=== PATIENT | male | born 1955 | race Caucasian/White ===

== ENCOUNTER 2019-07-23 02:09 | Emergency (ER) | payer OTHER ==
[2019-07-23 02:47] LABS: #Basophils 0.1 thou/uL (0.0-0.2); #Eosinphils 0.2 thou/uL (0.0-0.7); #Lymphocytes 1.4 thou/uL (1.20-3.40); #Monocytes 0.8 thou/uL (0.11-0.59); #Neutrophils 5.7 thou/uL (1.40-6.50); %Basophils 0.8 % (0.0-1.0); %Eosinophils 2.4 % (0.0-10.0); %Lymphocytes 16.8 % (21.0-51.0); %Monocytes 9.3 % (0.0-10.0); %Neutrophils 70.6 % (42.0-75.0); Hemoglobin 14.2 g/dL (14.0-18.0); Mean Corpuscular HGB CONC 32.6 g/dL (32.0-36.0); Mean Corpuscular Hemoglobin 28.9 pg (27.0-31.0); Mean Corpuscular Volume 88.6 fL (78.0-98.0); Mean Platelet Volume 8.6 fL (7.4-10.4); Platelet Count 259 thou/uL (130-400); RBC Distribution Width 12.9 % (11.5-14.5); Red Blood Cell (RBC) Count 4.92 mill/uL (4.70-6.10); White Blood Cell (WBC) Count 8.1 thou/uL (4.8-10.8)
[2019-07-23 03:13] LABS: ALT (SGPT) 19 U/L (8-55); AST (SGOT) 19 U/L (5-34); Alkaline Phosphatase 69 U/L (40-110); Anion Gap 12 mmol/L (10-20); BUN (Urea Nitrogen) 16 mg/dL (8.4-25.7); Bilirubin, Total 0.7 mg/dL (0.2-1.2); Calc. Creatinine Clearance 0 mL/min (70-130); Calcium 9.2 mg/dL (7.8-10.44); Carbon Dioxide 28 mmol/L (23-31); Chloride 106 mmol/L (98-107); Estimated GFR-MDRD Greater than 90; Globulin 3.3 g/dL (2.4-3.5); Glucose 110 mg/dL (80-115); Lipase 20 U/L (8-78); Potassium 4.6 mmol/L (3.5-5.1); Protein, Total 7.3 g/dL (5.8-8.1); Sodium 141 mmol/L (136-145)
[2019-07-23 04:13] LABS: Bacteria/HPF None Seen HPF (None Seen); Bilirubin Negative (Negative); Blood, Urine Negative (Negative); Clarity Clear (Clear); Glucose, Urine (Dipstick) Normal (Negative); Leukocyte Negative Leu/uL (Negative); Nitrite Negative (Negative); Protein, Urine (Dipstick) 50 mg/dL (Neg-Trace); RBC/HPF 0-3 HPF (0-3); Squamous Epithelial None Seen HPF (0-3); WBC/HPF 0-3 HPF (0-3)
[2019-07-23] MEDS ORDERED: Amoxicillin/Potassium Clav 875 MG TAB ONE (04:13)
[2019-07-23] MEDS ORDERED: Acetaminophen/Codeine 30-300mg Tablet ONE (05:02)
[2019-07-23] MEDS ORDERED: Iopamidol-370 76% 500 ML 1 ML ONE (09:56)
--- NOTE | 2019-07-23 10:39 | CT ---
PRELIMINARY REPORT/[facility]/EMERGENCY AFTER HOURS PROCEDURE Receipt of this report by the clinical staff was confirmed with Sarahi Nino RN by Marcela Nuñez on Jul 23, 2019 04:05:00 CATALYST SUPERVISOR. Addendum electronically signed by Marcela Nuñez on July 23, 2019 4:06:03 AM CATALYST SUPERVISOR EXAM: CT Abdomen and Pelvis with Intravenous Contrast CLINICAL HISTORY: 63 yo M presenting with 3-4 episodes of large volume hematochezia in the past 4 carolyn rs. Denies history of similar episodes. No fever/chills. Pt also with LLQ pain. CONTRAST: With; ISOVUE 370,100mL COMPARISON: None provided. FINDINGS: Coronary artery calcifications. LUNG BASES: No basilar airspace consolidation or pleural effusion. Bibasilar linear opacities, likely atelectasis or scarring. LIVER: Unremarkable. GALLBLADDER AND BILE DUCTS: Unremarkable. No calcified stone. No ductal dilation. PANCREAS: Unremarkable. SPLEEN: Unremarkable. ADRENAL GLANDS: Multiple incompletely characterized right adrenal nodules.. KIDNEYS, URETERS, AND BLADDER: 2.2 cm left lower pole renal cyst. No hydronephrosis or nephrolithiasi s. Nonobstructing 4 mm left lower pole renal stone. STOMACH AND BOWEL: No obstruction. No wall thickening. Sigmoid diverticulosis with mild adjacent stra nding (image 76, series 2 and image 125, series 301). Hyperdense material is seen in the distal sigm oid colon and rectum. APPENDIX: No CT evidence for appendicitis. PERITONEUM: No free fluid. No free air. LYMPH NODES: No lymphadenopathy. REPRODUCTIVE: Unremarkable as visualized. VASCULATURE: No aortic aneurysm. BONES: No fracture or suspicious osseous abnormality. Multilevel degenerative changes of the lumbar s pine. ABDOMINAL WALL AND SOFT TISSUES: Left greater than right fat containing inguinal hernias.. IMPRESSION: Sigmoid diverticulosis with mild adjacent stranding. Findings concerning for early acute diverticulitis. Hyperattenuating material is seen in the distal sigmoid colon and rectum, compatible with history of hematochezia. ELECTRONICALLY SIGNED BY: Jordon Garcia MD Jul 23, 2019 4:00:33 AM CATALYST SUPERVISOR FINAL REPORT CT ABDOMEN AND PELVIS PERFORMED WITH CONTRAST ENHANCEMENT: HISTORY: Three to 4 episodes of large-volume hematochezia in the past 4 hours. Pain in the left lower quadran t. FINDINGS: Lung bases show Bibasilar atelectatic lung change. There are diffuse fatty changes of the liver. The spleen is within normal limits of size. Pancreas is unremarkable. A small area of increased attenuation within the gallbladder lumen probably represe nts a small stone. Right and left adrenal glands and right and left kidneys are normal in size. A nonobstructing puncta te lower pole left renal calculus is noted and a lower pole left renal cyst is present measuring 2.4 cm. There is no significant periaortic or mesenteric adenopathy. Colonic diverticulosis is noted mo re pronounced in the sigmoid region. There is some subtle fat stranding adjacent to the sigmoid colo n. There is no evidence of any pelvic lymphadenopathy or mass. The appendix is normal. Prostate ca lcifications are present. Arthritic changes of the spine are noted. IMPRESSION: 1. Probable tiny gallstone. Ultrasound would be suggested if clinically indicated. 2. Punctate nonobstructing lower pole left renal calculus. 3. Colonic diverticulosis more severe in the sigmoid region with some very minimal fat stranding adj acent to the sigmoid colon. I cannot exclude this representing some early acute diverticulitis. 4. This report is in agreement with the temporary report issued by [facility]. POS: [facility]
== END 2019-07-23 05:11 ==
LOC: ERS 02:09
DX: K57.33 Diverticulitis of large intestine without perforation or abscess with bleeding (principal); I10 Essential (primary) hypertension; J44.9 Chronic obstructive pulmonary disease, unspecified; Z87.891 Personal history of nicotine dependence; Z79.899 Other long term (current) drug therapy
CPT/HCPCS: 36415; 74177; 80053; 81003; 81015; 83605; 83690; 85025; 86850; 86900; 86901

== ENCOUNTER 2019-07-23 17:16 | Inpatient (IN) | payer OTHER ==
--- NOTE | 2019-07-23 17:45 | RAD ---
XR Chest 1 View Portable HISTORY: Abdominal pain. Dizziness COMPARISON: 04/04/2019 FINDINGS: The heart is enlarged. There is continued elevation the right hemidiaphragm. No lobar conso lidation, pneumothoraces, santos pulmonary edema or large effusions are seen. IMPRESSION: No radiographic evidence of acute cardiopulmonary process.
[2019-07-23 18:04] LABS: #Basophils 0.1 thou/uL (0.0-0.2); #Eosinphils 0.1 thou/uL (0.0-0.7); #Lymphocytes 0.9 thou/uL (1.20-3.40); #Monocytes 0.6 thou/uL (0.11-0.59); #Neutrophils 6.1 thou/uL (1.40-6.50); %Basophils 1.2 % (0.0-1.0); %Eosinophils 0.8 % (0.0-10.0); %Lymphocytes 11.8 % (21.0-51.0); %Monocytes 7.6 % (0.0-10.0); %Neutrophils 78.7 % (42.0-75.0); Mean Corpuscular HGB CONC 32.8 g/dL (32.0-36.0); Mean Corpuscular Hemoglobin 29.1 pg (27.0-31.0); Mean Corpuscular Volume 88.8 fL (78.0-98.0); Mean Platelet Volume 8.7 fL (7.4-10.4); Platelet Count 238 thou/uL (130-400); RBC Distribution Width 12.8 % (11.5-14.5); Red Blood Cell (RBC) Count 3.78 mill/uL (4.70-6.10); White Blood Cell (WBC) Count 7.7 thou/uL (4.8-10.8)
[2019-07-23 18:09] LABS: PTT 25.2 SEC (22.9-36.1)
[2019-07-23 18:13] LABS: Prothrombin Time 13.3 SEC (12.0-14.7)
[2019-07-23 18:24] LABS: ALT (SGPT) 15 U/L (8-55); AST (SGOT) 15 U/L (5-34); Albumin 3.3 g/dL (3.4-4.8); Alkaline Phosphatase 51 U/L (40-110); Anion Gap 10 mmol/L (10-20); BUN (Urea Nitrogen) 20 mg/dL (8.4-25.7); Bilirubin, Total 1.1 mg/dL (0.2-1.2); Calc. Creatinine Clearance 0 mL/min (70-130); Calcium 8.2 mg/dL (7.8-10.44); Carbon Dioxide 26 mmol/L (23-31); Chloride 108 mmol/L (98-107); Estimated GFR-MDRD 64; Globulin 2.6 g/dL (2.4-3.5); Glucose 131 mg/dL (80-115); Iron 110 ug/dL (65-175); Iron Binding Capacity, Total 288 mcg/dL (261-462); Potassium 4.2 mmol/L (3.5-5.1); Protein, Total 5.9 g/dL (5.8-8.1); Sodium 140 mmol/L (136-145)
[2019-07-23 18:44] LABS: CKMB 1.4 ng/mL (0-6.6)
[2019-07-23] MEDS ORDERED: Fentanyl 100 MCG/2 ML VIAL ONE (19:11)
[2019-07-23] MEDS ORDERED: metroNIDAZOLE 500 MG/100 ML BAG ONE (20:07)
[2019-07-23] MEDS ORDERED: Pantoprazole 40 MG VIAL ONE (20:07)
[2019-07-23] MEDS ORDERED: Acetaminophen 650 MG Suppository PR PRN (21:19)
[2019-07-23 21:36] VITALS: BMI 40.4
[2019-07-23] MEDS ORDERED: Ondansetron ODT 4 MG TAB SL PRN (21:38)
[2019-07-23] MEDS ORDERED: Ondansetron PF 4 MG/2 ML Vial IVP PRN (21:38)
[2019-07-23 21:49] LABS: Hemoglobin 10.6 g/dL (14.0-18.0)
[2019-07-23 21:57] LABS: PTT 26.6 SEC (22.9-36.1); Prothrombin Time 13.4 SEC (12.0-14.7)
[2019-07-23] MEDS: Sodium Chloride 0.9% 1,000 ML IV SCH (22:09)
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
[2019-07-23] MEDS ORDERED: GoLYTELY 4,000 ml Bottle PO SCH (22:30)
[2019-07-24] MEDS: Acetaminophen 325 MG TAB PO PRN ×2 (00:25→17:24)
[2019-07-24] MEDS: metroNIDAZOLE 500 MG in Premix Bag 1 BAG IVPB SCH ×3 (02:24→17:15)
[2019-07-24 03:55] LABS: #Basophils 0.1 thou/uL (0.0-0.2); #Eosinphils 0.2 thou/uL (0.0-0.7); #Monocytes 0.8 thou/uL (0.11-0.59); #Neutrophils 5.2 thou/uL (1.40-6.50); %Basophils 1.3 % (0.0-1.0); %Eosinophils 2.3 % (0.0-10.0); %Lymphocytes 23.9 % (21.0-51.0); %Monocytes 9.7 % (0.0-10.0); %Neutrophils 62.8 % (42.0-75.0); Hemoglobin 10.5 g/dL (14.0-18.0); Mean Corpuscular HGB CONC 32.7 g/dL (32.0-36.0); Mean Corpuscular Hemoglobin 29.4 pg (27.0-31.0); Mean Corpuscular Volume 89.9 fL (78.0-98.0); Mean Platelet Volume 9.1 fL (7.4-10.4); Platelet Count 223 thou/uL (130-400); RBC Distribution Width 12.8 % (11.5-14.5); Red Blood Cell (RBC) Count 3.58 mill/uL (4.70-6.10); White Blood Cell (WBC) Count 8.3 thou/uL (4.8-10.8)
[2019-07-24 04:21] LABS: ALT (SGPT) 15 U/L (8-55); AST (SGOT) 15 U/L (5-34); Albumin 3.4 g/dL (3.4-4.8); Alkaline Phosphatase 49 U/L (40-110); Anion Gap 13 mmol/L (10-20); BUN (Urea Nitrogen) 20 mg/dL (8.4-25.7); Calc. Creatinine Clearance 159 mL/min (70-130); Calcium 8.2 mg/dL (7.8-10.44); Carbon Dioxide 24 mmol/L (23-31); Chloride 109 mmol/L (98-107); Estimated GFR-MDRD 84; Globulin 2.5 g/dL (2.4-3.5); Glucose 96 mg/dL (80-115); Potassium 3.9 mmol/L (3.5-5.1); Protein, Total 5.9 g/dL (5.8-8.1); Sodium 142 mmol/L (136-145)
[2019-07-24 04:43] LABS: CKMB 1.8 ng/mL (0-6.6)
[2019-07-24] MEDS: Sodium Chloride 0.9% 1,000 ML IV SCH ×2 (05:24→13:16)
[2019-07-24] MEDS ORDERED: Prevnar 13-Val Conj/PF 0.5 ML SYRINGE IM ONE (09:00)
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
[2019-07-24] MEDS: Pantoprazole 40 MG VIAL IVP SCH ×2 (10:17→20:17)
[2019-07-24 11:31] LABS: CKMB 2.1 ng/mL (0-6.6)
[2019-07-24] MEDS ORDERED: PROPOFOL 200 MG/20 ML VIAL ONE (11:54)
--- NOTE | 2019-07-24 12:43 | PDOC.HOSPP ---
- Subjective Encounter Date: 07/24/19 Encounter Time: 12:40 Subjective: abd pain is better had colonoscopy this am no nausea, is tolerating oral diet - Objective Vital Signs & Weight: Vital Signs (12 hours) Temp Pulse Ox 07/24/19 11:22 98.5 F 07/24/19 08:00 97 07/24/19 07:14 98.4 F 07/24/19 03:31 98.1 F Weight Weight 306 lb Most Recent Monitor Data Heart Rate from ECG 69 NIBP 159/97 NIBP BP-Mean 117 Respiration from ECG 23 SpO2 97 I&O: 07/23/19 07/24/19 07/25/19 06:59 06:59 06:59 Intake Total 4236 Output Total 700 Balance 3536 Result Diagrams: 07/24/19 10:40 07/24/19 03:10 Hospitalist ROS - Medication Medications: Active Medications Generic Name Dose Route Start Last Admin Trade Name Freq PRN Reason Stop Dose Admin Acetaminophen 650 mg 07/23/19 21:19 07/24/19 00:25 Tylenol PO 650 mg Q4H PRN Administration Headache/Fever/Mild Pain (1-3) Sodium Chloride 1,000 mls @ 100 mls/hr 07/23/19 21:38 07/24/19 05:24 Normal Saline 0.9% IV 07/25/19 03:37 1,000 mls .Q10H MEENA Administration Ciprofloxacin/Dextrose 400 mg/ 200 mls @ 200 mls/hr 07/24/19 09:00 07/24/19 10:17 Device IVPB 200 mls Q12HR MEENA Administration Metronidazole 500 mg/ Device 100 mls @ 100 mls/hr 07/24/19 02:00 07/24/19 10: 18 IVPB 100 mls 0200,1000,1800 MEENA Administration Pantoprazole Sodium 40 mg 07/24/19 09:00 07/24/19 10:17 Protonix IVP 40 mg BID MEENA Administration - Exam General Appearance: awake alert Eye: PERRL, anicteric sclera ENT: no oropharyngeal lesions, moist mucosa Neck: supple, no JVD Heart: RRR, no murmur Respiratory: no wheezes, no rales Gastrointestinal: soft, non-tender, normal bowel sounds, no guarding, no rigidity Extremities: no cyanosis, 1+ LE edema Neurological: cranial nerve grossly intact, no focal deficits Psychiatric: normal affect, A&O x 3 Hosp A/P (1) GI bleed Code(s): K92.2 - GASTROINTESTINAL HEMORRHAGE, UNSPECIFIED Status: Acute Qualifiers: GI bleed type/associated pathology: diverticulitis Qualified Code(s): K57.93 - Diverticulitis of intestine, part unspecified, without perforation or abscess with bleeding (2) Acute blood loss anemia Code(s): D62 - ACUTE POSTHEMORRHAGIC ANEMIA Status: Acute (3) Hepatitis C Code(s): B19.20 - UNSPECIFIED VIRAL HEPATITIS C WITHOUT HEPATIC COMA Status: Chronic Qualifiers: Viral hepatitis chronicity: chronic Hepatic coma status: without hepatic coma Qualified Code(s): B18.2 - Chronic viral hepatitis C (4) COPD (chronic obstructive pulmonary disease) Status: Chronic Qualifiers: COPD type: chronic bronchitis (5) Obesity Code(s): E66.9 - OBESITY, UNSPECIFIED Status: Chronic Qualifiers: Obesity classification: adult class 3 (BMI >= 40) Body mass index: BMI 40.0 -44.9 (6) HTN (hypertension) Code(s): I10 - ESSENTIAL (PRIMARY) HYPERTENSION Status: Chronic Qualifiers: Hypertension type: essential hypertension Qualified Code(s): I10 - Essential (primary) hypertension - Plan is on cipro, flagyl, protonix and clear liq diet s/p colonoscopy with polypectomy continue inhaler, iv fluids, imdur, hold antihtn meds and diuretics for today to ambulate as tolerated h/h in am
[2019-07-24] MEDS ORDERED: PROVENTIL INHALER 6.7 G (200 INHALATIONS) INH PRN (13:00)
--- NOTE | 2019-07-24 13:19 | OP ---
DATE OF PROCEDURE: 07/24/2019 PROCEDURE PERFORMED: Colonoscopy with biopsy/polypectomy and control of hemorrhage. INDICATION FOR PROCEDURE: Hematochezia. DESCRIPTION OF PROCEDURE: After the risks and benefits of the procedure were explained to the patient including risks of bleeding, infection, perforation, reactions to anesthesia, aspiration, and/or pain, informed consent was obtained. The patient was then taken to the endoscopy suite, where deep sedation was administered via propofol and anesthesia support after being placed in the left lateral decubitus position. Once adequate sedation was achieved, a digital rectal examination was performed followed by introduction of the standard colonoscope, which was then advanced to the proximal ascending colon with increased difficulty due to the patient's body habitus, tortuous colon, and significant diverticular disease. The quality of the prep was fair despite aggressive irrigation and suctioning, making it inadequate for the evaluation of small mucosal lesions, but adequate for the purposes of identifying bleeding. The patient tolerated the procedure well with no immediate perioperative complications. Upon conclusion of the procedure, all equipment was removed from the patient and he was transferred to PACU in satisfactory condition. FINDINGS: Digital rectal exam: Normal findings were seen on external examination. Colon findings: A moderate amount of retained semi-solid and liquid stool was seen throughout the entire colon, limiting visualization of the colonic mucosa. Aggressive irrigation and suctioning was achieved with sterile water, but still unable to achieve adequate visualization in the ascending, transverse, and proximal descending colons. Of the mucosa seen, a 3 mm polyp was seen in the ascending colon and completely removed with Jumbo biopsy forceps. It was retrieved and placed in a specimen jar for further evaluation. Given the patient's body habitus, tortuous colon, and significant diverticular disease in the sigmoid colon, I was unable to achieve cecal intubation, but with visualization of the ileocecal valve and appendiceal orifice from approximately 10 cm away. Normal-appearing mucosa was then seen in the transverse colon. Scattered diverticula were seen in the proximal descending colon and increasing a concentration into the descending colon and including the sigmoid colon at the junction between the distal descending and sigmoid colons. There was a large diverticulum that has mildly surrounding erythema as well as a visible vessel along the lip of the diverticulum itself. Hemoclip x3 was employed to clip the vessel in addition to closing the diverticulum shot. There was no bleeding noted at the end of the maneuver. Normal-appearing mucosa was then seen within the rectum with small internal hemorrhoids seen on rectal retroflexion. IMPRESSION: 1. A 3 mm ascending colon polyp status post biopsy forceps. 2. Four 4 to 6 mm descending colon polyps, not intervened upon due to increased risk of bleeding. 3. Severe left-sided diverticulosis. 4. A diverticulum at the distal descending/sigmoid colon junction with a visible vessel and surrounding erythema, most likely consistent with diverticular bleed, status post hemoclip placement x3. 5. Small internal hemorrhoids. RECOMMENDATIONS: 1. Would continue to trend his hemoglobin and hematocrit and transfuse as necessary to maintain the hemoglobin and hematocrit of 7/21. 2. Continue to monitor clinically for signs of active GI bleeding. 3. Would place the patient on a clear liquid diet in case further procedures are planned. 4. Would ultimately recommend a higher fiber diet as an outpatient given the degree of diverticulosis. 5. No overt evidence of diverticulitis was seen during examination today, although continuation of antibiotics for possible diverticulitis contributing to his left lower quadrant abdominal pain is reasonable for a total duration of therapy of 10 days. We will continue to follow. Please call with any questions. Job ID: [id number]
[2019-07-24] MEDS: Ipratropium Oral Inhaler INH SCH ×2 (14:29→19:31)
[2019-07-24 16:26] LABS: Hemoglobin 9.5 g/dL (14.0-18.0)
[2019-07-24] MEDS: Mometasone 100 MCG HFA INHALER INH SCH (19:31)
[2019-07-24] MEDS ORDERED: Morphine 2 MG/ML SYRINGE SLOW IVP SCH (20:00)
[2019-07-25] MEDS: metroNIDAZOLE 500 MG in Premix Bag 1 BAG IVPB SCH ×3 (01:42→18:55)
[2019-07-25 04:12] LABS: Anion Gap 9 mmol/L (10-20); BUN (Urea Nitrogen) 10 mg/dL (8.4-25.7); Calc. Creatinine Clearance 204 mL/min (70-130); Calcium 8.3 mg/dL (7.8-10.44); Carbon Dioxide 25 mmol/L (23-31); Chloride 110 mmol/L (98-107); Estimated GFR-MDRD Greater than 90; Glucose 121 mg/dL (80-115); Potassium 3.5 mmol/L (3.5-5.1); Sodium 140 mmol/L (136-145)
[2019-07-25 06:46] LABS: #Basophils 0.1 thou/uL (0.0-0.2); #Eosinphils 0.4 thou/uL (0.0-0.7); #Lymphocytes 1.5 thou/uL (1.20-3.40); #Monocytes 0.7 thou/uL (0.11-0.59); #Neutrophils 3.8 thou/uL (1.40-6.50); %Basophils 1.2 % (0.0-1.0); %Eosinophils 5.9 % (0.0-10.0); %Lymphocytes 23.3 % (21.0-51.0); %Monocytes 10.4 % (0.0-10.0); %Neutrophils 59.3 % (42.0-75.0); Hemoglobin 9.3 g/dL (14.0-18.0); Mean Corpuscular HGB CONC 33.9 g/dL (32.0-36.0); Mean Corpuscular Hemoglobin 29.9 pg (27.0-31.0); Mean Corpuscular Volume 88.4 fL (78.0-98.0); Mean Platelet Volume 8.8 fL (7.4-10.4); Platelet Count 209 thou/uL (130-400); RBC Distribution Width 12.8 % (11.5-14.5); Red Blood Cell (RBC) Count 3.09 mill/uL (4.70-6.10); White Blood Cell (WBC) Count 6.4 thou/uL (4.8-10.8)
[2019-07-25] MEDS: Ipratropium Oral Inhaler INH SCH (08:33)
[2019-07-25] MEDS: Mometasone 100 MCG HFA INHALER INH SCH (08:34)
[2019-07-25] MEDS: Isosorbide Mononitrate (ER) 30 MG TAB PO SCH (09:05)
[2019-07-25] MEDS: Pantoprazole 40 MG VIAL IVP SCH ×2 (09:06→20:23)
[2019-07-25] MEDS ORDERED: Ipratropium Oral Inhaler INH PRN (09:15)
[2019-07-25] MEDS ORDERED: Mometasone 100 MCG HFA INHALER INH PRN (09:15)
--- NOTE | 2019-07-25 10:22 | PRG ---
DATE OF SERVICE: 07/25/2019 REASON FOR CONSULTATION: Hematochezia, diverticular bleeding. SUBJECTIVE: The patient underwent colonoscopy yesterday with the findings of colon polyps as well as a diverticulum within the sigmoid colon with a visible vessel. This was subsequently intervened upon with hemoclip placement x3 with good hemostasis achieved. Overnight, he did not have any additional problems and did have the passage of some older appearing blood, but no further grossly bloody bowel movements. Today, he states that he is doing well with no other problems or complaints other than chronic lower leg pain and back pain. Currently, he denies any nausea, vomiting, fevers, chills, hematemesis, melena, or hematochezia. He was wondering if he can get his diet advanced. OBJECTIVE: VITAL SIGNS: Temperature 98.6, pulse 73, blood pressure 134/95, respiratory rate 24, saturating 96% on room air. GENERAL: The patient is lying in bed, in no acute distress. Alert and oriented x4. CARDIOVASCULAR: Regular rate and rhythm. RESPIRATORY: Clear to auscultation bilaterally. ABDOMEN: Normoactive bowel sounds. Soft, nondistended. Mild tenderness to palpation in the left lower quadrant. EXTREMITIES: No cyanosis or clubbing. 1+ bilateral lower extremity edema extending up to mid cruz. LABORATORY DATA: CBC with a white blood cell count of 6.4, hemoglobin 9.3, hematocrit 27.4, platelets 209. Chemistry with a sodium of 140, potassium 3.5, chloride 110, CO2 of 25, BUN 10, creatinine 0.71, glucose 121. IMAGING DATA: Colonoscopy was performed on July 24, 2019, which showed 5 colonic polyps (4 were not removed due to risk of bleeding). Severe left-sided diverticulosis with a visible vessel and one diverticulum consistent with a diverticular bleed. This was intervened upon with hemoclip placement x3 with no further episodes of bleeding. ASSESSMENT AND PLAN: The patient is a 63-year-old male with past medical history of morbid obesity, hypertension, chronic hepatitis C infection, hypothyroidism, chronic obstructive pulmonary disease, BPH, atrial fibrillation, coronary artery disease and aortic stenosis with cardiomyopathy with diastolic dysfunction presenting with hematochezia secondary to diverticular bleed. 1. Hematochezia/diverticular bleeding. a. The patient initially presented with a longstanding history of hematochezia characterized as bright red blood per rectum that was present only on the toilet paper and consistent more with hemorrhoidal bleeding; however, the patient had an increase in his hematochezia for the 24 to 36 hours prior to admission with grossly bloody bowel movements expressed at that time and associated hypotension. He subsequently underwent colonoscopy on July 24, 2019, with a few colonic polyp seen, but extensive diverticulosis in the distal descending and sigmoid colon. In addition to one diverticula in particular having a visible vessel along the lip of the diverticulum itself. This was subsequently closed with hemoclip placement x3 with no bleeding noted at the end of the maneuver. Currently, his H and H are stable with no further episodes of overt GI bleeding. 2. RECOMMENDATIONS: a. We would continue to trend his H and H and transfuse as necessary to maintain an H and H of 01/02. b. Continue to monitor clinically for signs of active GI bleeding. c. Would avoid any anticoagulation for at least the next 24 to 48 hours. d. If the patient begins to exhibit increased hematochezia, would then possibly repeat either colonoscopy or flexible sigmoidoscopy. 3. Diverticulitis. a. The patient is also presenting with increased left lower quadrant abdominal pain in association with this hematochezia with imaging consistent with possible early diverticulitis. He does continue to have increased pain in the left lower quadrant, which could be due to an evolving diverticulitis versus the presence of just diverticular disease. So far with the antibiotic administration, he is improving. 4. RECOMMENDATIONS: a. Would continue with broad-spectrum antibiotics to include ciprofloxacin and metronidazole for possible diverticulitis and with total duration of therapy of [address] the patient on a lower fiber diet for the time being with the goal of advancing the patient back to a higher fiber diet in 2 to 3 weeks. We will continue to follow. Please call with any questions. Job ID: [id number]
[2019-07-25] MEDS: Acetaminophen 325 MG TAB PO PRN (21:24)
[2019-07-26] MEDS: metroNIDAZOLE 500 MG in Premix Bag 1 BAG IVPB SCH ×3 (02:20→17:13)
[2019-07-26] MEDS: Pantoprazole 40 MG VIAL IVP SCH (08:53)
[2019-07-26] MEDS: Isosorbide Mononitrate (ER) 30 MG TAB PO SCH (08:53)
[2019-07-26 08:55] LABS: #Basophils 0.1 thou/uL (0.0-0.2); #Eosinphils 0.3 thou/uL (0.0-0.7); #Lymphocytes 1.5 thou/uL (1.20-3.40); #Monocytes 0.6 thou/uL (0.11-0.59); #Neutrophils 4.3 thou/uL (1.40-6.50); %Basophils 1.1 % (0.0-1.0); %Lymphocytes 21.9 % (21.0-51.0); %Monocytes 8.7 % (0.0-10.0); %Neutrophils 63.3 % (42.0-75.0); Hemoglobin 9.1 g/dL (14.0-18.0); Mean Corpuscular HGB CONC 31.8 g/dL (32.0-36.0); Mean Corpuscular Hemoglobin 28.5 pg (27.0-31.0); Mean Corpuscular Volume 89.9 fL (78.0-98.0); Mean Platelet Volume 8.8 fL (7.4-10.4); Platelet Count 238 thou/uL (130-400); Red Blood Cell (RBC) Count 3.17 mill/uL (4.70-6.10); White Blood Cell (WBC) Count 6.8 thou/uL (4.8-10.8)
[2019-07-26] MEDS ORDERED: Lisinopril 10 MG TAB PO SCH (12:45)
[2019-07-26] MEDS: Acetaminophen 325 MG TAB PO PRN (15:32)
--- NOTE | 2019-07-26 16:11 | PDOC.HOSPP ---
- Subjective Encounter Date: 07/26/19 Subjective: The patient did not have any bowel movements today. He denies any new complaints. He asked for his diet to be advanced. - Objective Vital Signs & Weight: Vital Signs (12 hours) Temp Resp BP BP Pulse Ox 07/26/19 14:12 162/99 H 07/26/19 14:03 173/96 H 07/26/19 13:29 164/108 H 07/26/19 13:27 164/108 H 07/26/19 12:00 99.4 F 07/26/19 11:56 155/105 H 07/26/19 08:00 99.2 F 18 174/99 H 95 Weight Weight 306 lb Most Recent Monitor Data Heart Rate from ECG 72 NIBP 125/70 NIBP BP-Mean 88 Respiration from ECG 29 SpO2 94 I&O: 07/25/19 07/26/19 07/27/19 06:59 06:59 06:59 Intake Total 1440 2500 Output Total 600 1725 Balance 840 775 Result Diagrams: 07/26/19 08:29 07/25/19 03:35 Hospitalist ROS - Medication Medications: Active Medications Generic Name Dose Route Start Last Admin Trade Name Freq PRN Reason Stop Dose Admin Acetaminophen 650 mg 07/23/19 21:19 07/26/19 15:32 Tylenol PO 650 mg Q4H PRN Administration Headache/Fever/Mild Pain (1-3) Ciprofloxacin/Dextrose 400 mg/ 200 mls @ 200 mls/hr 07/24/19 09:00 07/26/19 08:54 Device IVPB 200 mls Q12HR MEENA Administration Metronidazole 500 mg/ Device 100 mls @ 100 mls/hr 07/24/19 02:00 07/26/19 08: 53 IVPB 100 mls 0200,1000,1800 MEENA Administration Isosorbide Mononitrate 30 mg 07/25/19 09:00 07/26/19 08:53 Imdur Er PO 30 mg DAILY MEENA Administration Pantoprazole Sodium 40 mg 07/24/19 09:00 07/26/19 08:53 Protonix IVP 40 mg BID MEENA Administration Sodium Chloride 10 ml 07/23/19 21:19 07/24/19 20:17 Flush - Normal Saline IVF 10 ml Q12HR PRN Administration Saline Flush - Exam General Appearance: NAD Eye: PERRL, anicteric sclera ENT: normocephalic atraumatic Neck: supple Heart: RRR Respiratory: CTAB Gastrointestinal: soft Neurological: cranial nerve grossly intact, no focal deficits Psychiatric: normal affect, A&O x 3 Hosp A/P (1) Acute blood loss anemia Code(s): D62 - ACUTE POSTHEMORRHAGIC ANEMIA Status: Acute (2) GI bleed Code(s): K92.2 - GASTROINTESTINAL HEMORRHAGE, UNSPECIFIED Status: Acute Qualifiers: GI bleed type/associated pathology: diverticulitis Qualified Code(s): K57.93 - Diverticulitis of intestine, part unspecified, without perforation or abscess with bleeding (3) COPD (chronic obstructive pulmonary disease) Status: Chronic Qualifiers: COPD type: chronic bronchitis (4) Obesity Code(s): E66.9 - OBESITY, UNSPECIFIED Status: Chronic Qualifiers: Obesity classification: adult class 3 (BMI >= 40) Body mass index: BMI 40.0 -44.9 (5) HTN (hypertension) Code(s): I10 - ESSENTIAL (PRIMARY) HYPERTENSION Status: Chronic Qualifiers: Hypertension type: essential hypertension Qualified Code(s): I10 - Essential (primary) hypertension - Plan No further episodes of bleeding. H&H stable. The patient asked for us to hold the discharge until he has a bowel movement.
[2019-07-26] MEDS ORDERED: Fioricet 325/50/40 mg Tablet PO PRN (17:42)
--- NOTE | 2019-07-26 19:17 | PRG ---
DATE OF SERVICE: 07/26/2019 REASON FOR CONSULTATION: Hematochezia, diverticular bleeding, diverticulitis. SUBJECTIVE: Per nursing staff, the patient had no acute events or problems overnight and did have a small volume bowel movement this morning. However, with talking with the patient today, he states that he has not had a bowel movement today and that he has been unable to pass gas as well. He also adds that the soreness in the left lower quadrant abdominal pain is unchanged, if not may be worsened in addition to increasing headaches and ringing in his ears. However, he denies any additional grossly bloody bowel movements and has not had any bloody bowel movements since shortly after the colonoscopy. Currently, he denies any nausea, vomiting, fevers, chills, hematemesis, melena, or hematochezia. OBJECTIVE: VITAL SIGNS: Temperature 99.4, pulse 72, blood pressure 162/99, respiratory rate 18, saturating 95% on room air. GENERAL: The patient was lying in bed, in no acute distress. Alert and oriented x4. CARDIOVASCULAR: Regular rate and rhythm. RESPIRATORY: Clear to auscultation bilaterally. ABDOMEN: Normoactive bowel sounds. Soft, nondistended. Mild tenderness to palpation in the left lower quadrant. EXTREMITIES: No cyanosis or clubbing. 1+ lower extremity edema of the left leg extending up to mid cruz. 1+/2+ lower extremity edema of the right lower extremity extending up to his knee. LABORATORY DATA: CBC with a white blood cell count of 6.8, hemoglobin 9.1, hematocrit 28.5, platelets 238. Chemistry, not drawn today. IMAGING DATA: The patient underwent colonoscopy on July 24, 2019, with a polyp removed from the ascending colon at that time. Pathology report was positive for a tubular adenoma. ASSESSMENT AND PLAN: The patient is a 63-year-old male with past medical history of morbid obesity, hypertension, chronic hepatitis C infection, hypothyroidism, chronic obstructive pulmonary disease, BPH, atrial fibrillation, coronary artery disease, and aortic stenosis with cardiomyopathy with diastolic dysfunction, presenting with hematochezia secondary to diverticular bleed. Hematochezia/diverticular bleed: The patient initially presented with grossly bloody bowel movements 24 to 36 hours prior to admission. He subsequently underwent a colonoscopy on July 24, 2019, with scattered colonic polyps seen, but extensive diverticulosis in the distal descending and sigmoid colon. Within the sigmoid colon, one diverticulum in particular had a visible vessel on the lip of the diverticulum itself indicative of a probable recent bleed. He subsequently underwent hemoclip placement x3 with no bleeding noted at the end of the maneuver, since the colonoscopy has had minimal amounts of blood per rectum, and his hemoglobin and hematocrit have been stable thus far. Recommendations: 1. Would continue to trend his hemoglobin and hematocrit and transfuse as necessary to maintain hemoglobin and hematocrit of 7/21. 2. Continue to monitor clinically for signs of active GI bleeding. 3. Would avoid any anticoagulation for at least the next 24 hours. 4. If the patient exhibits increased hematochezia, I would then consider repeat flexible sigmoidoscopy for further evaluation. Diverticulitis: The patient is presenting with increased left lower quadrant abdominal pain in association with hematochezia and imaging showing fat stranding in the region concerning for early diverticulitis. Per colonoscopy, he did not have any intraluminal findings consistent with the diagnosis; however, he does continue to have some mild left lower quadrant abdominal pain. Currently, he is doing well with antibiotic administration so far. However, with the stated inability to pass gas and have a bowel movement today, it is concerning for increased swelling within the sigmoid colon associated with diverticulitis. However, he did have a bowel movement this morning per nursing staff, raising the question of possible secondary gain. Recommendations: 1. Would continue with ciprofloxacin and metronidazole for diverticulitis and total duration of therapy of 10 days. 2. Continue the patient on a lower fiber diet for the time being with the goal advancing the patient back to a higher fiber diet in 2 to 3 weeks. If the patient is passing gas and having bowel movements with a stable hemoglobin and hematocrit tomorrow, he could be potentially discharged back to [facility]. We will continue to follow. Please call with any questions. Job ID: [id number]
[2019-07-27] MEDS ORDERED: Fioricet 325/50/40 mg Tablet PO PRN (00:36)
[2019-07-27] MEDS: metroNIDAZOLE 500 MG in Premix Bag 1 BAG IVPB SCH ×2 (00:59→09:41)
--- NOTE | 2019-07-27 08:07 | ULT ---
BILATERAL LOWER EXTREMITY VENOUS ULTRASOUND: COMPARISON: 04/05/2019. HISTORY: Bilateral lower extremity pain and edema. TECHNIQUE: Multiplanar, hart scale, and color Doppler images were obtained in a bilateral lower extremity venous ultrasound. Spectral analysis of the Doppler waveforms was performed. FINDINGS: Bilateral common femoral veins, profunda femoral veins, superficial femoral veins, and popliteal vein s are normal in appearance without visible thrombus. These vessels demonstrate normal compression, f low, and augmentation. The posterior tibial veins and greater saphenous veins are patent. IMPRESSION: No evidence of deep vein thrombosis. POS: [facility]
[2019-07-27] MEDS ORDERED: Clopidogrel Bisulfate 75 MG TAB ONE (08:46)
[2019-07-27] MEDS: Isosorbide Mononitrate (ER) 30 MG TAB PO SCH (09:37)
[2019-07-27] MEDS: Pantoprazole 40 MG VIAL IVP SCH ×2 (09:39→10:48)
[2019-07-27] MEDS ORDERED: metroNIDAZOLE 500 MG TAB PO SCH (10:00)
[2019-07-27] MEDS ORDERED: Lisinopril 10 MG TAB PO SCH (10:00)
[2019-07-27] MEDS ORDERED: Ciprofloxacin 500 MG TAB PO SCH ×2 (11:00→20:00)
--- NOTE | 2019-07-27 13:44 | DIS ---
DATE OF ADMISSION: 07/23/2019 DATE OF DISCHARGE: 07/27/2019 HISTORY OF PRESENT ILLNESS AND HOSPITAL COURSE: This is a 63-year-old male with past medical history of hypertension, hepatitis C, hypothyroidism, COPD, BPH, and morbid obesity, who presented to the hospital with persistent bright red blood per rectum. The patient denied any abdominal pains, fevers, or diarrhea. He was found to be hypotensive initially, but his blood pressure improved with IV hydration in the ER. CT scan of the abdomen and pelvis demonstrated colonic diverticulosis without evidence of acute diverticulitis. The patient was admitted to the hospital and Gastroenterology service was consulted. He was seen by Dr. Deacon Howard and the patient subsequently underwent colonoscopy with biopsy/polypectomy and control of hemorrhage on 07/24/2019. He was placed on empiric ciprofloxacin and Flagyl perioperatively. The patient did not exhibit any signs of sepsis during his hospital stay. His postoperative stay was unremarkable other than hypertension that was controlled by lisinopril. No further episodes of bleeding were noted and his H and H were stable. DISCHARGE DIAGNOSES: 1. Anemia due to acute blood loss. 2. Gastrointestinal bleeding. 3. Chronic obstructive pulmonary disease. 4. Obesity. 5. Hypertension. DISCHARGE MEDICATIONS: 1. Fluticasone 110 mcg inhaled b.i.d. 2. Mometasone 100 mcg one puff inhaled b.i.d. p.r.n. for shortness of breath. 3. Ipratropium 200 puff aerosol 2 puffs inhaled 4 times a day. 4. Imdur extended release 30 mg orally daily. 5. Lisinopril 10 mg orally daily. 6. Flagyl 500 mg t.i.d. for 4 days. 7. Pantoprazole 40 mg orally daily. 8. Ciprofloxacin 500 mg orally twice daily for 4 days. 9. Furosemide 40 mg orally twice daily. 10. Aspirin 81 mg orally daily. 11. Acetaminophen 650 mg orally t.i.d. 12. Spironolactone 25 mg orally daily. DISCHARGE INSTRUCTIONS: Increase fiber diet, activity as tolerated, follow up with PCP and GI within 1 to 2 weeks. Job ID: [id number]
[2019-07-27 15:41] VITALS: TEMP 99.4
[2019-07-27 18:27] VITALS: BP 150/99
== END 2019-07-27 15:45 | DRG 378 ==
LOC: ERS 17:16 → IMCU/EMU 21:25
PROVIDERS: ADMIT Internal Medicine; ATTEND Internal Medicine
PROC: 0W3P8ZZ Control Bleeding in Gastrointestinal Tract, Via Natural or Artificial Opening Endoscopic (ICD-10-PCS; principal; 2019-07-24)
PROC: 0DBK8ZZ Excision of Ascending Colon, Via Natural or Artificial Opening Endoscopic (ICD-10-PCS; 2019-07-24)
PROC: 0DBM8ZZ Excision of Descending Colon, Via Natural or Artificial Opening Endoscopic (ICD-10-PCS; 2019-07-24)
DX: K57.33 Diverticulitis of large intestine without perforation or abscess with bleeding (principal); D62 Acute posthemorrhagic anemia; Z68.41 Body mass index [BMI] 40.0-44.9, adult; J44.9 Chronic obstructive pulmonary disease, unspecified; I10 Essential (primary) hypertension; E66.01 Morbid (severe) obesity due to excess calories; B18.2 Chronic viral hepatitis C; E03.9 Hypothyroidism, unspecified; N40.0 Benign prostatic hyperplasia without lower urinary tract symptoms; I25.10 Atherosclerotic heart disease of native coronary artery without angina pectoris; I48.91 Unspecified atrial fibrillation; Z96.653 Presence of artificial knee joint, bilateral; K64.8 Other hemorrhoids; K63.5 Polyp of colon; Z87.891 Personal history of nicotine dependence; Z79.899 Other long term (current) drug therapy; Z79.82 Long term (current) use of aspirin; Z79.51 Long term (current) use of inhaled steroids
CPT/HCPCS: 36415; 71045; 74177; 80048; 80053; 81003; 81015; 82553; 82728; 83540; 83550; 83605; 83690; 83880; 84484; 85025; 85610; 85730; 86850; 86900; 86901; 88305; 93005; 93970; 96361; 96365; 96368; 96375; C9113; J0744; J2270; J2704; J3010; Q9967

== ENCOUNTER 2020-01-24 00:18 | Inpatient (IN) | payer OTHER ==
[2020-01-24] MEDS ORDERED: Sodium Chloride 0.9% (PF) 10 ML VIAL FS PRN (03:34)
--- NOTE | 2020-01-24 03:45 | PDOC.EVN ---
Event Note - Event Note Event Note: [id number] HP dictated
[2020-01-24 03:58] LABS: #Basophils 0.1 thou/uL (0.0-0.2); #Eosinphils 0.1 thou/uL (0.0-0.7); #Lymphocytes 1.2 thou/uL (1.20-3.40); #Neutrophils 5.8 thou/uL (1.40-6.50); %Basophils 0.6 % (0.0-1.0); %Eosinophils 1.7 % (0.0-10.0); %Lymphocytes 14.8 % (21.0-51.0); %Monocytes 12.6 % (0.0-10.0); %Neutrophils 70.2 % (42.0-75.0); Hemoglobin 10.5 g/dL (14.0-18.0); Mean Corpuscular HGB CONC 30.6 g/dL (32.0-36.0); Mean Corpuscular Hemoglobin 23.9 pg (27.0-31.0); Mean Corpuscular Volume 78.2 fL (78.0-98.0); Platelet Count 377 thou/uL (130-400); RBC Distribution Width 19.5 % (11.5-14.5); Red Blood Cell (RBC) Count 4.39 mill/uL (4.70-6.10); White Blood Cell (WBC) Count 8.2 thou/uL (4.8-10.8)
[2020-01-24] MEDS: HYDROcodone/Acetaminophen 5/325 mg Tablet PO PRN ×3 (04:09→23:31)
[2020-01-24 04:18] LABS: ALT (SGPT) 20 U/L (8-55); AST (SGOT) 17 U/L (5-34); Albumin 4.1 g/dL (3.4-4.8); Alkaline Phosphatase 81 U/L (40-110); Anion Gap 10 mmol/L (10-20); BUN (Urea Nitrogen) 17 mg/dL (8.4-25.7); Bilirubin, Total 0.8 mg/dL (0.2-1.2); Calc. Creatinine Clearance 0 mL/min (70-130); Carbon Dioxide 32 mmol/L (23-31); Chloride 103 mmol/L (98-107); Estimated GFR-MDRD Greater than 90; Globulin 3.7 g/dL (2.4-3.5); Glucose 110 mg/dL (80-115); Potassium 3.8 mmol/L (3.5-5.1); Protein, Total 7.8 g/dL (5.8-8.1); Sodium 141 mmol/L (136-145)
[2020-01-24 04:23] LABS: Troponin I 0.062 ng/mL (< 0.028)
[2020-01-24] MEDS ORDERED: cloNIDine 0.2 MG TAB PO PRN (04:38)
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
[2020-01-24] MEDS: Furosemide 40 MG/4 ML VIAL SLOW IVP SCH ×2 (06:28→12:35)
[2020-01-24] MEDS ORDERED: Albuterol 200 PUFF (6.7GM INHALER) INH PRN (07:50)
[2020-01-24] MEDS ORDERED: Metoprolol Tartrate 5 MG/5 ML VIAL IVP PRN (07:53)
[2020-01-24] MEDS: Pantoprazole 40 MG VIAL IVP SCH ×2 (08:32→20:47)
[2020-01-24] MEDS: Spironolactone 25 MG TAB PO SCH (08:33)
[2020-01-24] MEDS: Lisinopril 5 MG TAB PO SCH ×2 (08:33→20:48)
[2020-01-24] MEDS ORDERED: Carvedilol 25 MG TAB PO SCH (10:00)
--- NOTE | 2020-01-24 10:27 | RAD ---
XR Chest 1 View Portable History: Pneumonia Comparison: Radiograph prior day Findings: Similar appearance multifocal airspace opacities. Heart size is enlarged. No pneumothorax. No acute osseous abnormality. Likely layering moderate pleural effusions. Impression: Similar appearance of the chest with airspace opacities and likely layering effusions.
[2020-01-24] MEDS: Ipratropium Oral Inhaler INH SCH ×3 (12:33→20:46)
[2020-01-24] MEDS ORDERED: PROVENTIL INHALER 6.7 G (200 INHALATIONS) INH PRN (13:13)
--- NOTE | 2020-01-24 13:24 | PDOC.HOSPP ---
- Subjective Encounter Date: 01/24/20 Encounter Time: 01:20 Subjective: Seen this morning. He is severely dramatic but with underlying chronic edema and in his lower extremities. He is feeling better after oxygen by nasal cannula. His BNP is almost 700. Creatinine normal range. He is being diuresed today. - Objective Vital Signs & Weight: Vital Signs (12 hours) Temp Pulse Resp BP Pulse Ox 01/24/20 12:33 94 20 99 01/24/20 08:33 90 165/123 H 01/24/20 06:00 98.4 F 01/24/20 04:00 97 01/24/20 03:11 98.1 F Weight Weight 300 lb 12.8 oz Most Recent Monitor Data Heart Rate from ECG 85 NIBP 161/126 NIBP BP-Mean 137 Respiration from ECG 23 SpO2 100 I&O: 01/23/20 01/24/20 01/25/20 06:59 06:59 06:59 Intake Total 270 Output Total 500 925 Balance -230 -925 Result Diagrams: 01/24/20 03:37 01/24/20 03:37 Hospitalist ROS - Medication Medications: Active Medications Generic Name Dose Route Start Last Admin Trade Name Freq PRN Reason Stop Dose Admin Hydrocodone Bitart/Acetaminophen 1 tab 01/24/20 04:01 01/24/20 12:30 [place] 5/325 PO 1 tab Q6H PRN Administration Pain Furosemide 80 mg 01/24/20 06:00 01/24/20 12:35 Lasix SLOW IVP 80 mg 0600,1400 MEENA Administration Ipratropium [place] 2 puff 01/24/20 11:00 01/24/20 12:33 Atrovent Hfa INH 2 puff QID-RT MEENA Administration Lisinopril 10 mg 01/24/20 09:00 01/24/20 08:33 Zestril PO 10 mg BID MEENA Administration Pantoprazole Sodium 40 mg 01/24/20 09:00 01/24/20 08:32 Protonix IVP 40 mg Q12HR MEENA Administration Pantoprazole Sodium 40 mg 01/24/20 09:00 01/24/20 08:32 Protonix PO 40 mg DAILY MEENA Administration Spironolactone 25 mg 01/24/20 08:00 01/24/20 08:33 Aldactone PO 25 mg QAM-WM MEENA Administration - Exam General Appearance: NAD, awake alert General - other findings: Obese Eye: PERRL ENT: normocephalic atraumatic Neck: supple Heart: RRR Respiratory: CTAB, normal chest expansion Gastrointestinal: soft, normal bowel sounds Extremities - other findings: Lower extremities edema at least 2+. Chronic venous stasis pre-existing. Skin - other findings: Right ankle slightly erythematous. Probably pressure related do not see an Neurological: cranial nerve grossly intact, no focal deficits Psychiatric: A&O x 3 Hosp A/P - Plan Acute hypoxic respiratory failure secondary to CHF exacerbation -Improved with oxygenation Acute on chronic CHF exacerbation-probably combined systolic and diastolic we need to wait until echo help us -Elevated BNP around 700 and a normal creatinine and clinical exam suggestive of CHF exacerbation more so -Strict in and output and weights daily discussed with RN. -On IV diuresis. -We will follow-up with cardiology input as well as 2D echo report. History of atrial fibrillation -Is rate controlled with Coreg -I do not see any anticoagulation in his home medication regimen. Will check with echo once no valvular abnormalities may consider adding anticoagulation. Coronary artery disease -On aspirin and Plavix Hypertension Continue with home regimen History of hepatitis C and GI bleed -Stable hemoglobin Morbid obesity Incarcerated.
[2020-01-24 14:41] LABS: CKMB 2.4 ng/mL (0-6.6)
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
--- NOTE | 2020-01-24 17:26 | CON ---
DATE OF CONSULTATION: 01/24/2020 REASON FOR CONSULTATION: Recurrent diastolic congestive heart failure, hypertension. HISTORY OF PRESENT ILLNESS: Mr. Knutson is a 64-year-old man with history of diastolic heart failure. The patient was brought to the hospital with progressive difficulty breathing, was found to have bilateral infiltrates compatible with congestive heart failure. He has received intravenous diuretics with what looks to be only a modest effect. PAST MEDICAL HISTORY: 1. Hypertension. 2. Left ventricular hypertrophy. 3. Normal stress test done previously in [place]. SOCIAL HISTORY: He is a resident of the correctional facility in a nearby town. CURRENT MEDICATIONS: He is on: 1. Carvedilol 25 mg twice a day. 2. Spironolactone 25 mg a day. 3. Lasix 80 mg IV twice a day. 4. Protonix. PHYSICAL EXAMINATION: VITAL SIGNS: The patient's blood pressure is 165/120, pulse is 90. LUNGS: Clear anterolaterally. CARDIAC: Normal S1, normal S2. I do not hear murmur, rub, or gallop. ABDOMEN: Obese and nontender. EXTREMITIES: Moderate to severe peripheral edema. LABORATORY DATA: Troponin 0.062, indeterminate. BNP 689. Chest x-ray is reported as bilateral infiltrates. ASSESSMENT: 1. Recurrent diastolic heart failure. 2. Uncontrolled hypertension. PLAN: 1. Increase nitrates. 2. Continue beta blockers, may need to reduce dose. 3. Repeat chest x-ray. 4. Try to obtain records from [facility]. Apparently, he had a stent placed in his aorta according to what the patient tells me. Job ID: [id number]
[2020-01-24] MEDS: Acetaminophen 325 MG TAB PO PRN (17:28)
[2020-01-24] MEDS: Mometasone 100 MCG/PUFF (1 INHALER) INH SCH (20:46)
[2020-01-24] MEDS: carBAMazepine 200 MG TAB PO SCH (20:47)
[2020-01-24] MEDS: Terazosin HCl 1 MG CAP PO SCH (20:47)
[2020-01-24] MEDS: Carvedilol 25 MG TAB PO SCH (20:48)
[2020-01-24] MEDS: Citrucel 500 MG TAB PO SCH (21:51)
[2020-01-25 05:10] LABS: #Eosinphils 0.3 thou/uL (0.0-0.7); #Monocytes 0.6 thou/uL (0.11-0.59); #Neutrophils 3.9 thou/uL (1.40-6.50); %Basophils 0.8 % (0.0-1.0); %Eosinophils 4.6 % (0.0-10.0); %Lymphocytes 16.8 % (21.0-51.0); %Monocytes 10.2 % (0.0-10.0); %Neutrophils 67.6 % (42.0-75.0); Hemoglobin 9.3 g/dL (14.0-18.0); Mean Corpuscular HGB CONC 29.3 g/dL (32.0-36.0); Mean Corpuscular Hemoglobin 23.4 pg (27.0-31.0); Mean Corpuscular Volume 79.8 fL (78.0-98.0); Mean Platelet Volume 9.8 fL (7.4-10.4); Platelet Count 324 thou/uL (130-400); RBC Distribution Width 19.4 % (11.5-14.5); Red Blood Cell (RBC) Count 3.99 mill/uL (4.70-6.10); White Blood Cell (WBC) Count 5.7 thou/uL (4.8-10.8)
[2020-01-25] MEDS: Furosemide 40 MG/4 ML VIAL SLOW IVP SCH ×2 (06:10→14:29)
[2020-01-25] MEDS: Mometasone 100 MCG/PUFF (1 INHALER) INH SCH ×2 (06:11→18:18)
[2020-01-25] MEDS: Ipratropium Oral Inhaler INH SCH ×4 (06:11→18:15)
[2020-01-25] MEDS: Pantoprazole 40 MG VIAL IVP SCH ×2 (09:14→20:11)
[2020-01-25] MEDS: Lisinopril 5 MG TAB PO SCH ×2 (09:14→20:11)
[2020-01-25] MEDS: Spironolactone 25 MG TAB PO SCH (09:15)
[2020-01-25] MEDS: Aspirin 81 mg Enteric Coated Tablet PO SCH (09:15)
[2020-01-25] MEDS: Clopidogrel Bisulfate 75 MG TAB PO SCH (09:15)
[2020-01-25] MEDS: Carvedilol 25 MG TAB PO SCH ×2 (09:15→20:11)
[2020-01-25] MEDS: DULoxetine 30 MG CAP PO SCH (09:15)
[2020-01-25] MEDS: carBAMazepine 200 MG TAB PO SCH ×2 (09:15→20:11)
--- NOTE | 2020-01-25 09:36 | PRG ---
DATE OF SERVICE: 01/25/2020 SUBJECTIVE: The patient is complaining of sciatic pain and wants morphine. He says his breathing is better. OBJECTIVE: VITAL SIGNS: Temperature 98, pulse 80, respirations 22, O2 saturation 96% on 2 L, and blood pressure 109/75. HEENT: Unremarkable. NECK: No JVD. LUNGS: Clear. CARDIAC: S1 and S2. Regular. ABDOMEN: Soft. EXTREMITIES: No edema. LABORATORY DATA: Troponin 0.41. White blood cell count 5.7, hematocrit 31.8, and platelet count 324. COVID test is not back yet. ASSESSMENT: 1. Diastolic heart failure. 2. Uncontrolled hypertension. PLAN: Isolation can be discontinued once COVID test comes back negative today. No further pulmonary recommendations at this time. Job ID: [id number]
[2020-01-25] MEDS: HYDROcodone/Acetaminophen 5/325 mg Tablet PO PRN ×2 (09:37→20:20)
--- NOTE | 2020-01-25 11:47 | PDOC.HOSPP ---
- Subjective Encounter Date: 01/25/20 Encounter Time: 10:40 Subjective: Ipt is constipated. His urine output is about [address] Castle seen him this morning. I did talk to the RN. COVID result pending. - Objective Vital Signs & Weight: Vital Signs (12 hours) Temp Pulse Resp BP Pulse Ox 01/25/20 09:16 98.1 F 85 18 127/74 96 01/25/20 03:25 98 F 80 22 H 109/75 96 Weight Weight 293 lb Most Recent Monitor Data Heart Rate from ECG 83 NIBP 131/93 NIBP BP-Mean 105 Respiration from ECG 22 SpO2 97 I&O: 01/24/20 01/25/20 01/26/20 06:59 06:59 06:59 Intake Total 270 1900 Output Total 500 3675 Balance -230 -1775 Result Diagrams: 01/25/20 04:36 01/24/20 03:37 Hospitalist ROS - Medication Medications: Active Medications Generic Name Dose Route Start Last Admin Trade Name Freq PRN Reason Stop Dose Admin Acetaminophen 650 mg 01/24/20 13:12 01/24/20 17:28 Tylenol PO 650 mg Q6H PRN Administration Fever > 101 Hydrocodone Bitart/Acetaminophen 1 tab 01/24/20 04:01 01/25/20 09:37 [place] 5/325 PO 1 tab Q6H PRN Administration Pain Aspirin 81 mg 01/25/20 09:00 01/25/20 09:15 Ecotrin PO 81 mg DAILY MEENA Administration Carbamazepine 200 mg 01/24/20 21:00 01/25/20 09:15 Tegretol PO 200 mg BID MEENA Administration Carvedilol 25 mg 01/24/20 21:00 01/25/20 09:15 Coreg PO 25 mg BID MEENA Administration Clopidogrel Bisulfate 75 mg 01/25/20 09:00 01/25/20 09:15 Plavix PO 75 mg QAM MEENA Administration Duloxetine HCl 30 mg 01/25/20 09:00 01/25/20 09:15 Cymbalta PO 30 mg QAM MEENA Administration Furosemide 80 mg 01/24/20 06:00 01/25/20 06:10 Lasix SLOW IVP 80 mg 0600,1400 MEENA Administration Ipratropium [place] 2 puff 01/24/20 11:00 01/25/20 06:11 Atrovent Hfa INH 2 puff QID-RT MEENA Administration Isosorbide Mononitrate 60 mg 01/25/20 09:00 01/25/20 09:15 Imdur Er PO 60 mg DAILY MEENA Administration Lisinopril 10 mg 01/24/20 09:00 01/25/20 09:14 Zestril PO 10 mg BID MEENA Administration Methylcellulose 1,000 mg 01/24/20 21:00 01/24/20 21:51 Citrucel PO 1,000 mg QPM MEENA Administration Mometasone Furoate 100 mcg 01/24/20 18:30 01/25/20 06:11 Asmanex Hfa 100 Mcg INH 2 puff BID-RT MEENA Administration Pantoprazole Sodium 40 mg 01/24/20 09:00 01/25/20 09:14 Protonix IVP 40 mg Q12HR MEENA Administration Pantoprazole Sodium 40 mg 01/24/20 09:00 01/25/20 09:15 Protonix PO 40 mg DAILY MEENA Administration Sodium Chloride 10 ml 01/24/20 03:34 01/25/20 09:14 Normal Saline Pf FS 10 ml PRN PRN Administration RECONSTITUTION Spironolactone 25 mg 01/24/20 08:00 01/25/20 09:15 Aldactone PO 25 mg QAM-WM MEENA Administration Terazosin HCl 2 mg 01/24/20 21:00 01/24/20 20:47 Hytrin PO 2 mg QPM MEENA Administration Hosp A/P - Plan Acute hypoxic respiratory failure secondary to CHF exacerbation -Improved with oxygenation Acute on chronic CHF exacerbation-probably combined systolic and diastolic we need to wait until echo help us -Elevated BNP around 700 and a normal creatinine and clinical exam suggestive of CHF exacerbation more so -Strict in and output and weights daily discussed with RN. -On IV diuresis. -We will follow-up with cardiology input as well as 2D echo report. History of atrial fibrillation -Is rate controlled with Coreg -I do not see any anticoagulation in his home medication regimen. Will check with echo once no valvular abnormalities may consider adding anticoagulation. Coronary artery disease -On aspirin and Plavix Hypertension Continue with home regimen History of hepatitis C and GI bleed -Stable hemoglobin Morbid obesity Incarcerated. 12th COVID result pending NSTEMI elevated troponin probably type II metabolic mismatch demand ischemia secondary to CHF exacerbation Acute on chronic diastolic CHF exacerbation Echo showed EF of 45% with a diastolic dysfunction indeterminate due to atrial fibrillation. -Dilated left atrium. Mild concentric left ventricular hypertrophy. Nitric dose increased Continue with the diuresis. Repeat chest x-ray shows layering moderate pleural effusion very similar to the prior x-ray Constipation On stool softeners.
[2020-01-25 12:04] LABS: SARS-CoV-2 MS2 Positive; SARS-CoV-2 N Gene Negative; SARS-CoV-2 S Gene Negative; SARS-CoV-2 by NAA Not Detected (NotDetected); SARS-CoV-2 orf1ab Negative
[2020-01-25] MEDS: Senokot S 8.6-50 MG TAB PO PRN (12:28)
[2020-01-25 14:55] LABS: Anion Gap 13 mmol/L (10-20); BUN (Urea Nitrogen) 30 mg/dL (8.4-25.7); Calc. Creatinine Clearance 128 mL/min (70-130); Calcium 8.4 mg/dL (7.8-10.44); Carbon Dioxide 34 mmol/L (23-31); Chloride 98 mmol/L (98-107); Estimated GFR-MDRD 69; Glucose 137 mg/dL (80-115); Potassium 3.8 mmol/L (3.5-5.1); Sodium 141 mmol/L (136-145)
[2020-01-25] MEDS: Citrucel 500 MG TAB PO SCH (20:11)
[2020-01-25] MEDS: Terazosin HCl 1 MG CAP PO SCH (20:11)
[2020-01-26 05:08] LABS: Anion Gap 9 mmol/L (10-20); BUN (Urea Nitrogen) 33 mg/dL (8.4-25.7); Calc. Creatinine Clearance 148 mL/min (70-130); Calcium 8.1 mg/dL (7.8-10.44); Carbon Dioxide 36 mmol/L (23-31); Chloride 99 mmol/L (98-107); Estimated GFR-MDRD 82; Glucose 132 mg/dL (80-115); Sodium 140 mmol/L (136-145)
[2020-01-26] MEDS: HYDROcodone/Acetaminophen 5/325 mg Tablet PO PRN ×3 (05:12→21:25)
[2020-01-26] MEDS: Mometasone 100 MCG/PUFF (1 INHALER) INH SCH ×2 (05:19→18:46)
[2020-01-26] MEDS: Furosemide 40 MG/4 ML VIAL SLOW IVP SCH ×2 (05:19→15:15)
[2020-01-26] MEDS: Ipratropium Oral Inhaler INH SCH ×4 (05:20→18:46)
[2020-01-26] MEDS: Spironolactone 25 MG TAB PO SCH (07:49)
[2020-01-26] MEDS: DULoxetine 30 MG CAP PO SCH (07:49)
[2020-01-26] MEDS: Carvedilol 25 MG TAB PO SCH ×2 (07:49→21:06)
[2020-01-26] MEDS: Clopidogrel Bisulfate 75 MG TAB PO SCH (07:49)
[2020-01-26] MEDS: Lisinopril 5 MG TAB PO SCH ×2 (07:50→21:05)
[2020-01-26] MEDS: carBAMazepine 200 MG TAB PO SCH ×2 (07:50→21:08)
[2020-01-26] MEDS: Aspirin 81 mg Enteric Coated Tablet PO SCH (07:50)
[2020-01-26] MEDS: Pantoprazole 40 MG VIAL IVP SCH ×2 (10:40→21:07)
--- NOTE | 2020-01-26 15:27 | PDOC.HOSPP ---
- Subjective Encounter Date: 01/26/20 Encounter Time: 15:00 Subjective: Dickye is sitting in the bed. He feels his legs are getting softer. Guard is nearby. He is afebrile his creatinine is in the normal range. He put out -700 mL. He lost roughly about 5 pounds for 3 days - Objective Vital Signs & Weight: Vital Signs (12 hours) Temp Pulse Resp BP BP Pulse Ox 01/26/20 15:17 98.3 F 77 20 124/75 97 01/26/20 11:49 97.0 F L 82 20 101/68 96 01/26/20 07:51 97 01/26/20 07:43 98.7 F 87 20 124/58 L 97 01/26/20 04:00 98.2 F 96 18 107/66 96 Weight Weight 295 lb Most Recent Monitor Data Heart Rate from ECG 83 NIBP 131/93 NIBP BP-Mean 105 Respiration from ECG 22 SpO2 97 I&O: 01/25/20 01/26/20 01/27/20 06:59 06:59 06:59 Intake Total 1900 1440 Output Total 3675 2320 700 Balance -1775 -880 -700 Result Diagrams: 01/25/20 04:36 01/26/20 04:35 Hospitalist ROS - Medication Medications: Active Medications Generic Name Dose Route Start Last Admin Trade Name Freq PRN Reason Stop Dose Admin Acetaminophen 650 mg 01/24/20 13:12 01/24/20 17:28 Tylenol PO 650 mg Q6H PRN Administration Fever > 101 Hydrocodone Bitart/Acetaminophen 1 tab 01/24/20 04:01 01/26/20 05:12 [place] 5/325 PO 1 tab Q6H PRN Administration Pain Aspirin 81 mg 01/25/20 09:00 01/26/20 07:50 Ecotrin PO 81 mg DAILY MEENA Administration Carbamazepine 200 mg 01/24/20 21:00 01/26/20 07:50 Tegretol PO 200 mg BID MEENA Administration Carvedilol 25 mg 01/24/20 21:00 01/26/20 07:49 Coreg PO 25 mg BID MEENA Administration Clopidogrel Bisulfate 75 mg 01/25/20 09:00 01/26/20 07:49 Plavix PO 75 mg QAM MEENA Administration Duloxetine HCl 30 mg 01/25/20 09:00 01/26/20 07:49 Cymbalta PO 30 mg QAM MEENA Administration Furosemide 80 mg 01/24/20 06:00 01/26/20 15:15 Lasix SLOW IVP 80 mg 0600,1400 MEENA Administration Ipratropium [place] 2 puff 01/24/20 11:00 01/26/20 15:15 Atrovent Hfa INH 2 puff QID-RT MEENA Administration Isosorbide Mononitrate 60 mg 01/25/20 09:00 01/26/20 07:49 Imdur Er PO 60 mg DAILY MEENA Administration Lisinopril 10 mg 01/24/20 09:00 01/26/20 07:50 Zestril PO 10 mg BID MEENA Administration Methylcellulose 1,000 mg 01/24/20 21:00 01/25/20 20:11 Citrucel PO 1,000 mg QPM MEENA Administration Mometasone Furoate 100 mcg 01/24/20 18:30 01/26/20 05:19 Asmanex Hfa 100 Mcg INH 2 puff BID-RT MEENA Administration Pantoprazole Sodium 40 mg 01/24/20 09:00 01/26/20 10:40 Protonix IVP Not Given Q12HR MEENA Pantoprazole Sodium 40 mg 01/24/20 09:00 01/26/20 07:49 Protonix PO 40 mg DAILY MEENA Administration Senna/Docusate Sodium 2 tab 01/25/20 11:46 01/25/20 12:28 Senokot S PO 2 tab BIDPRN PRN Administration Constipation Sodium Chloride 10 ml 01/24/20 03:34 01/25/20 09:14 Normal Saline Pf FS 10 ml PRN PRN Administration RECONSTITUTION Spironolactone 25 mg 01/24/20 08:00 01/26/20 07:49 Aldactone PO 25 mg QAM-WM MEENA Administration Terazosin HCl 2 mg 01/24/20 21:00 01/25/20 20:11 Hytrin PO 2 mg QPM MEENA Administration - Exam General Appearance: NAD, awake alert Eye: PERRL ENT: normocephalic atraumatic Neck: supple Heart: RRR Respiratory: CTAB, normal chest expansion Gastrointestinal: soft Extremities: 2+ LE edema Psychiatric: A&O x 3 Hosp A/P - Plan Acute hypoxic respiratory failure secondary to CHF exacerbation -Improved with oxygenation Acute on chronic CHF exacerbation-probably combined systolic and diastolic we need to wait until echo help us -Elevated BNP around 700 and a normal creatinine and clinical exam suggestive of CHF exacerbation more so -Strict in and output and weights daily discussed with RN. -On IV diuresis. -We will follow-up with cardiology input as well as 2D echo report. History of atrial fibrillation -Is rate controlled with Coreg -I do not see any anticoagulation in his home medication regimen. Will check with echo once no valvular abnormalities may consider adding anticoagulation. Coronary artery disease -On aspirin and Plavix Hypertension Continue with home regimen History of hepatitis C and GI bleed -Stable hemoglobin Morbid obesity Incarcerated. 12th COVID result pending NSTEMI elevated troponin probably type II metabolic mismatch demand ischemia secondary to CHF exacerbation Acute on chronic diastolic CHF exacerbation Echo showed EF of 45% with a diastolic dysfunction indeterminate due to atrial fibrillation. -Dilated left atrium. Mild concentric left ventricular hypertrophy. Nitric dose increased Continue with the diuresis. Repeat chest x-ray shows layering moderate pleural effusion very similar to the prior x-ray Constipation On stool softeners. 13th COVID negative Echo report as above He is normotensive Lost 5 pounds in 3 days of diuresis Renal function holding up We will continue the diuresis for another 1 to 2 days.
[2020-01-26] MEDS: Citrucel 500 MG TAB PO SCH (21:06)
[2020-01-26] MEDS: Terazosin HCl 1 MG CAP PO SCH (21:06)
[2020-01-27 05:43] LABS: Anion Gap 11 mmol/L (10-20); BUN (Urea Nitrogen) 30 mg/dL (8.4-25.7); Calc. Creatinine Clearance 164 mL/min (70-130); Calcium 8.7 mg/dL (7.8-10.44); Carbon Dioxide 34 mmol/L (23-31); Chloride 99 mmol/L (98-107); Estimated GFR-MDRD Greater than 90; Glucose 134 mg/dL (80-115); Potassium 3.6 mmol/L (3.5-5.1); Sodium 140 mmol/L (136-145)
[2020-01-27] MEDS: HYDROcodone/Acetaminophen 5/325 mg Tablet PO PRN ×2 (06:03→18:42)
[2020-01-27] MEDS: Mometasone 100 MCG/PUFF (1 INHALER) INH SCH ×2 (06:05→18:47)
[2020-01-27] MEDS: Furosemide 40 MG/4 ML VIAL SLOW IVP SCH ×2 (06:09→15:53)
[2020-01-27] MEDS: carBAMazepine 200 MG TAB PO SCH ×2 (09:50→20:56)
[2020-01-27] MEDS: Lisinopril 5 MG TAB PO SCH ×2 (09:50→20:55)
[2020-01-27] MEDS: Clopidogrel Bisulfate 75 MG TAB PO SCH (09:51)
[2020-01-27] MEDS: DULoxetine 30 MG CAP PO SCH (09:51)
[2020-01-27] MEDS: Aspirin 81 mg Enteric Coated Tablet PO SCH (09:51)
[2020-01-27] MEDS: Spironolactone 25 MG TAB PO SCH (09:51)
[2020-01-27] MEDS: Carvedilol 25 MG TAB PO SCH ×2 (09:51→20:56)
[2020-01-27] MEDS: Pantoprazole 40 MG VIAL IVP SCH ×2 (09:52→20:54)
[2020-01-27] MEDS: Ipratropium Oral Inhaler INH SCH ×4 (09:52→19:24)
[2020-01-27] MEDS ORDERED: Potassium Chloride 20 MEQ TAB PO SCH (13:15)
[2020-01-27] MEDS ORDERED: Metolazone 5 MG TAB PO SCH (13:15)
--- NOTE | 2020-01-27 13:28 | PRG ---
DATE OF SERVICE: 01/27/2020 SUBJECTIVE: Mr. Turcios edema is improved, but he is still short of breath. He is not short of breath that he was previously, but still short of breath with any type of activity. OBJECTIVE: VITAL SIGNS: His blood pressure is 140/90, pulse 80. LUNGS: Clear. CARDIAC: Normal S1. Normal S2. The heart sounds are distant due to his obesity. ABDOMEN: Obese. EXTREMITIES: Moderate edema. ASSESSMENT: 1. Diastolic congestive heart failure. 2. Previous COVID infection. Negative for COVID on this admission. PLAN: 1. Given metolazone today and tomorrow. 2. Give extra potassium today and tomorrow. 3. Increase spironolactone 30. Job ID: [id number]
--- NOTE | 2020-01-27 15:44 | PDOC.HOSPP ---
- Subjective Encounter Date: 01/27/20 Encounter Time: 13:30 Subjective: In the toilet bowl. He is ready to take a shower. He is very good conversationalist. Keep talking. His legs looks much better. He is worried about his prostate being an issue for for voiding. metolazone to be given today and tomorrow. - Objective Vital Signs & Weight: Vital Signs (12 hours) Temp Pulse Resp BP BP Pulse Ox 01/27/20 11:11 98.3 F 80 18 141/92 H 94 L 01/27/20 07:49 97.9 F 93 18 131/97 H 95 01/27/20 03:52 98.0 F 77 18 155/100 H 96 Weight Weight 286 lb 11.2 oz Most Recent Monitor Data Heart Rate from ECG 83 NIBP 131/93 NIBP BP-Mean 105 Respiration from ECG 22 SpO2 97 I&O: 01/26/20 01/27/20 01/28/20 06:59 06:59 06:59 Intake Total 1440 1542 Output Total 2320 1575 1575 Balance -889 -33 -1578 Result Diagrams: 01/25/20 04:36 01/27/20 04:52 Hospitalist ROS - Medication Medications: Active Medications Generic Name Dose Route Start Last Admin Trade Name Freq PRN Reason Stop Dose Admin Acetaminophen 650 mg 01/24/20 13:12 01/24/20 17:28 Tylenol PO 650 mg Q6H PRN Administration Fever > 101 Hydrocodone Bitart/Acetaminophen 1 tab 01/24/20 04:01 01/27/20 06:03 [place] 5/325 PO 1 tab Q6H PRN Administration Pain Aspirin 81 mg 01/25/20 09:00 01/27/20 09:51 Ecotrin PO 81 mg DAILY MEENA Administration Carbamazepine 200 mg 01/24/20 21:00 01/27/20 09:50 Tegretol PO 200 mg BID MEENA Administration Carvedilol 25 mg 01/24/20 21:00 01/27/20 09:51 Coreg PO 25 mg BID MEENA Administration Clopidogrel Bisulfate 75 mg 01/25/20 09:00 01/27/20 09:51 Plavix PO 75 mg QAM MEENA Administration Duloxetine HCl 30 mg 01/25/20 09:00 01/27/20 09:51 Cymbalta PO 30 mg QAM MEENA Administration Furosemide 80 mg 08/11/20 06:00 01/27/20 06:09 Lasix SLOW IVP 80 mg 0600,1400 MEENA Administration Ipratropium [place] 2 puff 01/24/20 11:00 01/27/20 13:39 Atrovent Hfa INH 2 puff QID-RT MEENA Administration Isosorbide Mononitrate 60 mg 01/25/20 09:00 01/27/20 09:50 Imdur Er PO 60 mg DAILY MEENA Administration Lisinopril 10 mg 01/24/20 09:00 01/27/20 09:50 Zestril PO 10 mg BID MEENA Administration Methylcellulose 1,000 mg 01/24/20 21:00 01/26/20 21:06 Citrucel PO 1,000 mg QPM MEENA Administration Metolazone 5 mg 01/27/20 13:15 01/27/20 13:39 Zaroxolyn PO 01/27/20 16:00 5 mg NOW MEENA Administration Mometasone Furoate 100 mcg 01/24/20 18:30 01/27/20 06:05 Asmanex Hfa 100 Mcg INH 1 puff BID-RT MEENA Administration Pantoprazole Sodium 40 mg 01/24/20 09:00 01/27/20 09:52 Protonix IVP Not Given Q12HR [facility] Pantoprazole Sodium 40 mg 01/24/20 09:00 01/27/20 09:51 Protonix PO 40 mg DAILY MEENA Administration Potassium Chloride 40 meq 01/27/20 13:15 01/27/20 13:39 K-Dur PO 01/27/20 16:00 40 meq NOW MEENA Administration Senna/Docusate Sodium 2 tab 01/25/20 11:46 01/25/20 12:28 Senokot S PO 2 tab BIDPRN PRN Administration Constipation Sodium Chloride 10 ml 01/24/20 03:34 01/25/20 09:14 Normal Saline Pf FS 10 ml PRN PRN Administration RECONSTITUTION Terazosin HCl 2 mg 01/24/20 21:00 01/26/20 21:06 Hytrin PO 2 mg QPM MEENA Administration - Exam General Appearance: NAD, awake alert General - other findings: Obese Eye: PERRL ENT: normocephalic atraumatic Neck: supple Extremities: 1+ LE edema Neurological: cranial nerve grossly intact, no focal deficits Psychiatric: A&O x 3 Hosp A/P - Plan Acute hypoxic respiratory failure secondary to CHF exacerbation -Improved with oxygenation Acute on chronic CHF exacerbation-probably combined systolic and diastolic we need to wait until echo help us -Elevated BNP around 700 and a normal creatinine and clinical exam suggestive of CHF exacerbation more so -Strict in and output and weights daily discussed with RN. -On IV diuresis. -We will follow-up with cardiology input as well as 2D echo report. History of atrial fibrillation -Is rate controlled with Coreg -I do not see any anticoagulation in his home medication regimen. Will check with echo once no valvular abnormalities may consider adding anticoagulation. Coronary artery disease -On aspirin and Plavix Hypertension Continue with home regimen History of hepatitis C and GI bleed -Stable hemoglobin Morbid obesity Incarcerated. NSTEMI elevated troponin probably type II metabolic mismatch demand ischemia secondary to CHF exacerbation Echo showed EF of 45% with a diastolic dysfunction indeterminate due to atrial fibrillation. -Dilated left atrium. Mild concentric left ventricular hypertrophy. Continue with the diuresis. Repeat chest x-ray shows layering moderate pleural effusion very similar to the prior x-ray Constipation On stool softeners. COVID negative Lost 5 pounds in 3 days of diuresis---on ---------> today at 286 lbs from initial 300 lbs--error? -metolazone today and tomorrow Spironolactone dose increased to 50 mg daily [not 30] Renal function holding up We will continue the diuresis for another 1 to 2 days. - fw on the electrolytes.
[2020-01-27] MEDS: Terazosin HCl 1 MG CAP PO SCH (20:55)
[2020-01-27] MEDS: Citrucel 500 MG TAB PO SCH (20:55)
[2020-01-27] MEDS: Senokot S 8.6-50 MG TAB PO PRN (23:00)
[2020-01-28 05:35] LABS: BUN (Urea Nitrogen) 27 mg/dL (8.4-25.7); Calc. Creatinine Clearance 145 mL/min (70-130); Calcium 8.9 mg/dL (7.8-10.44); Estimated GFR-MDRD 83; Glucose 129 mg/dL (80-115)
[2020-01-28 05:43] LABS: Anion Gap 12 mmol/L (10-20); Carbon Dioxide 40 mmol/L (23-31); Chloride 92 mmol/L (98-107); Potassium 3.6 mmol/L (3.5-5.1); Sodium 140 mmol/L (136-145)
[2020-01-28] MEDS: Furosemide 40 MG/4 ML VIAL SLOW IVP SCH ×2 (06:08→15:55)
[2020-01-28] MEDS: HYDROcodone/Acetaminophen 5/325 mg Tablet PO PRN ×2 (06:29→20:20)
[2020-01-28] MEDS ORDERED: Potassium Chloride 20 MEQ TAB PO SCH (08:00)
[2020-01-28] MEDS ORDERED: Metolazone 5 MG TAB PO SCH (09:00)
[2020-01-28] MEDS: Carvedilol 25 MG TAB PO SCH ×2 (09:23→20:21)
[2020-01-28] MEDS: DULoxetine 30 MG CAP PO SCH (09:23)
[2020-01-28] MEDS: carBAMazepine 200 MG TAB PO SCH ×2 (09:23→20:21)
[2020-01-28] MEDS: Spironolactone 25 MG TAB PO SCH (09:24)
[2020-01-28] MEDS: Lisinopril 5 MG TAB PO SCH ×2 (09:25→20:20)
[2020-01-28] MEDS: Aspirin 81 mg Enteric Coated Tablet PO SCH (09:25)
[2020-01-28] MEDS: Clopidogrel Bisulfate 75 MG TAB PO SCH (09:25)
[2020-01-28] MEDS: Mometasone 100 MCG/PUFF (1 INHALER) INH SCH (09:26)
[2020-01-28] MEDS: Ipratropium Oral Inhaler INH SCH ×3 (09:29→17:00)
[2020-01-28] MEDS: Pantoprazole 40 MG VIAL IVP SCH (09:32)
--- NOTE | 2020-01-28 14:32 | PDOC.HOSPP ---
- Subjective Encounter Date: 01/28/20 Encounter Time: 09:00 Subjective: no overnight events. per patient, edema improving but shortness of breath unchanged. Very tangential despite becoming short of breath while talking and poor historian. - Objective Vital Signs & Weight: Vital Signs (12 hours) Temp Pulse Resp BP Pulse Ox 01/28/20 11:05 97.8 F 78 20 104/58 L 96 01/28/20 07:30 98.2 F 71 18 140/98 H 96 01/28/20 03:05 97.7 F 79 20 125/89 95 Weight Weight 283 lb 11.2 oz Most Recent Monitor Data Heart Rate from ECG 83 NIBP 131/93 NIBP BP-Mean 105 Respiration from ECG 22 SpO2 97 I&O: 01/27/20 01/28/20 01/29/20 06:59 06:59 06:59 Intake Total 1542 720 Output Total 2413 0674 8719 Balance -33 -5055 -2150 Result Diagrams: 01/25/20 04:36 01/28/20 04:41 Hospitalist ROS - Review of Systems Constitutional: denies: chills, sweats Respiratory: reports: shortness of breath, SOB with excertion. denies: cough, dry, hemoptysis, pleuritic pain, sputum Cardiovascular: reports: edema (improved). denies: chest pain, palpitations, orthopnea, paroxysmal noc. dyspnea Gastrointestinal: denies: nausea, vomiting, abdominal pain, diarrhea, melena, hematochezia - Medication Medications: Active Medications Generic Name Dose Route Start Last Admin Trade Name Freq PRN Reason Stop Dose Admin Acetaminophen 650 mg 01/24/20 13:12 01/24/20 17:28 Tylenol PO 650 mg Q6H PRN Administration Fever > 101 Hydrocodone Bitart/Acetaminophen 1 tab 01/24/20 04:01 01/28/20 06:29 [place] 5/325 PO 1 tab Q6H PRN Administration Pain Aspirin 81 mg 01/25/20 09:00 01/28/20 09:25 Ecotrin PO 81 mg DAILY MEENA Administration Carbamazepine 200 mg 01/24/20 21:00 01/28/20 09:23 Tegretol PO 200 mg BID MEENA Administration Carvedilol 25 mg 01/24/20 21:00 01/28/20 09:23 Coreg PO 25 mg BID MEENA Administration Clopidogrel Bisulfate 75 mg 01/25/20 09:00 01/28/20 09:25 Plavix PO 75 mg QAM MEENA Administration Duloxetine HCl 30 mg 01/25/20 09:00 01/28/20 09:23 Cymbalta PO 30 mg QAM MEENA Administration Furosemide 80 mg 01/24/20 06:00 01/28/20 06:08 Lasix SLOW IVP 80 mg 0600,1400 MEENA Administration Ipratropium [place] 2 puff 01/24/20 11:00 01/28/20 13:40 Atrovent Hfa INH 2 puff QID-RT MEENA Administration Isosorbide Mononitrate 60 mg 01/25/20 09:00 01/28/20 09:23 Imdur Er PO 60 mg DAILY MEENA Administration Lisinopril 10 mg 01/24/20 09:00 01/28/20 09:25 Zestril PO 10 mg BID MEENA Administration Methylcellulose 1,000 mg 01/24/20 21:00 01/27/20 20:55 Citrucel PO 1,000 mg QPM MEENA Administration Mometasone Furoate 100 mcg 01/24/20 18:30 01/28/20 09:26 Asmanex Hfa 100 Mcg INH 1 puff BID-RT MEENA Administration Pantoprazole Sodium 40 mg 01/24/20 09:00 01/28/20 09:32 Protonix IVP Not Given Q12HR [facility] Pantoprazole Sodium 40 mg 01/24/20 09:00 01/28/20 09:24 Protonix PO 40 mg DAILY MEENA Administration Senna/Docusate Sodium 2 tab 01/25/20 11:46 01/27/20 23:00 Senokot S PO 2 tab BIDPRN PRN Administration Constipation Sodium Chloride 10 ml 01/24/20 03:34 01/25/20 09:14 Normal Saline Pf FS 10 ml PRN PRN Administration RECONSTITUTION Spironolactone 50 mg 01/28/20 08:00 01/28/20 09:24 Aldactone PO 50 mg QAM-WM MEENA Administration Terazosin HCl 2 mg 01/24/20 21:00 01/27/20 20:55 Hytrin PO 2 mg QPM MEENA Administration - Exam General Appearance: NAD, awake alert General - other findings: morbidly obese Eye: PERRL, anicteric sclera ENT: normocephalic atraumatic Neck: no JVD Heart: no murmur, no gallops, no rubs, irregular Respiratory: no wheezes, no ronchi, rales, tachypneic Respiratory - other findings: inspiratory, b/l lower schroeder; can't complete sentence, using accessory mus Gastrointestinal: soft, non-tender, non-distended, normal bowel sounds Extremities - other findings: b/l pitting equal to knee level Psychiatric: normal affect, normal behavior, A&O x 3 Hosp A/P - Plan #shortness of breath Echo showing reduced systolic function, can't determine diastolic due to afib, moderately enlarged L atirum and mild/moderate mitral regurg I/O balance grossly negative; remains significantly short of breath with minimal exertion #p. afib CHADVASC 3, HASBLED 4 (recent hematochezia likely due to diverticulosis) -continue to hold anticoagulation; defer to cardiology #lung disease -patient poor historian, endorses possible previous diagnosis of COPD but "don' t know who diagnosed it" -Bicarb uprending even before grossly negative I/O, azotemia improving so less likely contraction alkalosis; likely related to obstructive disease -reduced lung sounds on exam; endorses acute/subacute worsening cough, sputum production, and shortness of breath; may be COPD exacerbation -start inhalers, doxycycline, steroids -obtain records
[2020-01-28] MEDS: Citrucel 500 MG TAB PO SCH (20:22)
[2020-01-28] MEDS: Terazosin HCl 1 MG CAP PO SCH (20:22)
[2020-01-28] MEDS ORDERED: Doxycycline 100 MG CAP PO SCH (21:00)
[2020-01-28] MEDS ORDERED: Triamcinolone 0.1% Cream 15 GM TUBE TOP PRN (22:41)
[2020-01-28] MEDS: Triamcinolone 0.1% Cream 15 GM TUBE TOP PRN (23:02)
[2020-01-29 05:42] LABS: BUN (Urea Nitrogen) 31 mg/dL (8.4-25.7); Calc. Creatinine Clearance 104 mL/min (70-130); Calcium 8.9 mg/dL (7.8-10.44); Estimated GFR-MDRD 58; Glucose 100 mg/dL (80-115); Magnesium 2.2 mg/dL (1.6-2.6)
[2020-01-29 05:51] LABS: Anion Gap 16 mmol/L (10-20); Carbon Dioxide 40 mmol/L (23-31); Chloride 88 mmol/L (98-107); Potassium 3.5 mmol/L (3.5-5.1); Sodium 140 mmol/L (136-145)
[2020-01-29] MEDS ORDERED: Furosemide 40 MG/4 ML VIAL SLOW IVP SCH ×2 (06:00→14:00)
[2020-01-29] MEDS: Spironolactone 25 MG TAB PO SCH (08:04)
[2020-01-29] MEDS: Aspirin 81 mg Enteric Coated Tablet PO SCH (08:05)
[2020-01-29] MEDS: Lisinopril 5 MG TAB PO SCH (08:05)
[2020-01-29] MEDS: carBAMazepine 200 MG TAB PO SCH ×2 (08:05→21:02)
[2020-01-29] MEDS: Clopidogrel Bisulfate 75 MG TAB PO SCH (08:05)
[2020-01-29] MEDS: Carvedilol 25 MG TAB PO SCH ×2 (08:05→21:08)
[2020-01-29] MEDS: DULoxetine 30 MG CAP PO SCH (08:06)
[2020-01-29] MEDS: predniSONE 20 MG TAB PO SCH (08:06)
[2020-01-29] MEDS: HYDROcodone/Acetaminophen 5/325 mg Tablet PO PRN ×2 (08:06→21:03)
--- NOTE | 2020-01-29 08:58 | RAD ---
CHEST 1 VIEW: HISTORY: Worsening shortness of breath. COMPARISON: 01/24/2020. FINDINGS: Scattered multifocal airspace opacities, particularly in the bases. These appear to show some improv ement from 01/23/2020 but are stable from 01/24/2020. IMPRESSION: Overall stable-appearing bilateral patchy parenchymal opacity changes more so on the bases. Continue d followup for complete clearing or stability. POS: OFF
[2020-01-29] MEDS ORDERED: Furosemide 20 MG/2 ML VIAL SLOW IVP SCH ×2 (10:00→14:00)
--- NOTE | 2020-01-29 10:53 | PDOC.CPN ---
- Subjective Date: 01/28/20 Time: 13:30 Interval history: Patient with c/o SOB/MARINELLI/edema, but overall improved. Diuresing with zaroxolyn. No pain. - Review of Systems General: denies: fever/chills, weight/appetite/sleep changes, night sweats, fatigue Respiratory: reports: shortness of breath, exercise intolerance. denies: cough , congestion Cardiovascular: reports: edema, orthopnea Gastrointestinal: denies: nausea, vomiting, diarrhea, constipation, abd pain, GI bleeding Musculoskeletal: denies: pain, tenderness, stiffness, swelling, arthritis/ arthralgias Neurological: denies: numbness, syncope, seizure, weakness - Objective Allergies/Adverse Reactions: Allergies Allergy/AdvReac Type Severity Reaction Status Date / Time hydralazine Allergy Verified 07/23/19 21:41 Visit Medications: Current Medications Acetaminophen (Tylenol) 650 mg PO Q6H PRN PRN Reason: Fever > 101 Last Admin: 01/24/20 17:28 Dose: 650 mg Hydrocodone Bitart/Acetaminophen ([place] 5/325) 1 tab PO Q6H PRN PRN Reason: Pain Last Admin: 01/29/20 08:06 Dose: 1 tab Albuterol/Ipratropium (Duoneb) 3 ml NEB [id number] [facility] Last Admin: 01/29/20 06:50 Dose: 3 ml Aspirin (Ecotrin) 81 mg PO DAILY [facility] Last Admin: 01/29/20 08:05 Dose: 81 mg Carbamazepine (Tegretol) 200 mg PO BID [facility] Last Admin: 01/29/20 08:05 Dose: 200 mg Carvedilol (Coreg) 25 mg PO BID [facility] Last Admin: 01/29/20 08:05 Dose: 25 mg Clopidogrel Bisulfate (Plavix) 75 mg PO QAM [facility] Last Admin: 01/29/20 08:05 Dose: 75 mg Duloxetine HCl (Cymbalta) 30 mg PO QAM [facility] Last Admin: 01/29/20 08:06 Dose: 30 mg Furosemide (Lasix) 20 mg SLOW IVP 0600,1400 [facility] Furosemide (Lasix) 20 mg SLOW IVP NOW [facility] Stop: 01/29/20 12:00 Isosorbide Mononitrate (Imdur Er) 60 mg PO DAILY [facility] Last Admin: 01/29/20 08:04 Dose: 60 mg Lisinopril (Zestril) 10 mg PO DAILY [facility] Last Admin: 01/29/20 08:05 Dose: 10 mg Methylcellulose (Citrucel) 1,000 mg PO QPM [facility] Last Admin: 01/28/20 20:22 Dose: 1,000 mg Pantoprazole Sodium (Protonix) 40 mg PO DAILY [facility] Last Admin: 01/29/20 08:06 Dose: 40 mg Prednisone (Prednisone) 40 mg PO [facility] Last Admin: 01/29/20 08:06 Dose: 40 mg Senna/Docusate Sodium (Senokot S) 2 tab PO BIDPRN PRN PRN Reason: Constipation Last Admin: 01/27/20 23:00 Dose: 2 tab Sodium Chloride (Normal Saline Pf) 10 ml FS PRN PRN PRN Reason: RECONSTITUTION Last Admin: 01/25/20 09:14 Dose: 10 ml Spironolactone (Aldactone) 50 mg PO [facility] Last Admin: 01/29/20 08:04 Dose: 50 mg Terazosin HCl (Hytrin) 2 mg PO QPM [facility] Last Admin: 01/28/20 20:22 Dose: 2 mg Triamcinolone Acetonide (Kenalog 0.1% Cream) 1 gm TOP BID PRN PRN Reason: Topical Irritations Last Admin: 01/28/20 23:02 Dose: 1 applic Vital Signs & Weight: Vital Signs Temp Pulse Resp BP BP Pulse Ox 01/29/20 08:05 75 01/29/20 07:34 97.9 F 75 20 124/80 96 01/29/20 06:51 99 01/29/20 06:50 77 16 99 01/29/20 04:52 94 L 01/29/20 04:50 98.0 F 72 20 125/92 H 85 L 01/29/20 01:01 96 01/29/20 00:58 66 18 100/71 96 01/28/20 23:05 98.0 F 68 16 88/53 L 95 Weight 277 lb 12.8 oz - Physical Exam General: alert & oriented x3, appears well, no apparent distress HEENT: mucus membranes moist Neck: supple neck Cardiac: other (IRR IRR) Lungs: decreased breath sounds, bibasilar rales Neuro: grossly intact Abdomen: unremarkable, soft Extremities: 1+ LE edema Skin: clear Musculoskeletal: no pain - Labs Result Diagrams: 01/25/20 04:36 01/29/20 04:50 Troponin/CKMB CK-MB (CK-2) 2.0 ng/mL (0-6.6) 01/24/20 19:48 Troponin I 0.041 ng/mL (< 0.028) H 01/24/20 19:48 - Assessment/Plan Assessment/Plan: 1. Acute on chronic diastolic CHF 2. Persistent AF - probably chronic 3. COPD 4. HTN Continue zaroxolyn. AF rate-controlled. No ACT due to recent GIB history.
--- NOTE | 2020-01-29 11:05 | PDOC.CPN ---
- Subjective Date: 01/29/20 Time: 11:02 Interval history: Patient feeling better overall. Still SOB. Edema improved. no CP. - Review of Systems General: denies: fever/chills, weight/appetite/sleep changes, night sweats, fatigue Respiratory: reports: shortness of breath, exercise intolerance Cardiovascular: reports: edema Gastrointestinal: denies: nausea, vomiting, diarrhea, constipation, abd pain, GI bleeding Musculoskeletal: denies: pain, tenderness, stiffness, swelling, arthritis/ arthralgias Neurological: denies: numbness, syncope, seizure, weakness - Objective Allergies/Adverse Reactions: Allergies Allergy/AdvReac Type Severity Reaction Status Date / Time hydralazine Allergy Verified 07/23/19 21:41 Visit Medications: Current Medications Acetaminophen (Tylenol) 650 mg PO Q6H PRN PRN Reason: Fever > 101 Last Admin: 01/24/20 17:28 Dose: 650 mg Hydrocodone Bitart/Acetaminophen ([place] 5/325) 1 tab PO Q6H PRN PRN Reason: Pain Last Admin: 01/29/20 08:06 Dose: 1 tab Albuterol/Ipratropium (Duoneb) 3 ml NEB [id number] [facility] Last Admin: 01/29/20 06:50 Dose: 3 ml Aspirin (Ecotrin) 81 mg PO DAILY [facility] Last Admin: 01/29/20 08:05 Dose: 81 mg Carbamazepine (Tegretol) 200 mg PO BID [facility] Last Admin: 01/29/20 08:05 Dose: 200 mg Carvedilol (Coreg) 25 mg PO BID [facility] Last Admin: 01/29/20 08:05 Dose: 25 mg Clopidogrel Bisulfate (Plavix) 75 mg PO QAM [facility] Last Admin: 01/29/20 08:05 Dose: 75 mg Duloxetine HCl (Cymbalta) 30 mg PO QAM [facility] Last Admin: 01/29/20 08:06 Dose: 30 mg Furosemide (Lasix) 20 mg SLOW IVP 0600,1400 [facility] Furosemide (Lasix) 20 mg SLOW IVP NOW [facility] Stop: 01/29/20 12:00 Isosorbide Mononitrate (Imdur Er) 60 mg PO DAILY [facility] Last Admin: 01/29/20 08:04 Dose: 60 mg Lisinopril (Zestril) 10 mg PO DAILY [facility] Last Admin: 01/29/20 08:05 Dose: 10 mg Methylcellulose (Citrucel) 1,000 mg PO QPM [facility] Last Admin: 01/28/20 20:22 Dose: 1,000 mg Metolazone (Zaroxolyn) 2.5 mg PO 0830 [facility] Pantoprazole Sodium (Protonix) 40 mg PO DAILY [facility] Last Admin: 01/29/20 08:06 Dose: 40 mg Prednisone (Prednisone) 40 mg PO [facility] Last Admin: 01/29/20 08:06 Dose: 40 mg Senna/Docusate Sodium (Senokot S) 2 tab PO BIDPRN PRN PRN Reason: Constipation Last Admin: 01/27/20 23:00 Dose: 2 tab Sodium Chloride (Normal Saline Pf) 10 ml FS PRN PRN PRN Reason: RECONSTITUTION Last Admin: 01/25/20 09:14 Dose: 10 ml Spironolactone (Aldactone) 50 mg PO [facility] Last Admin: 01/29/20 08:04 Dose: 50 mg Terazosin HCl (Hytrin) 2 mg PO QPM [facility] Last Admin: 01/28/20 20:22 Dose: 2 mg Triamcinolone Acetonide (Kenalog 0.1% Cream) 1 gm TOP BID PRN PRN Reason: Topical Irritations Last Admin: 01/28/20 23:02 Dose: 1 applic Vital Signs & Weight: Vital Signs Temp Pulse Resp BP BP Pulse Ox 01/29/20 08:05 75 01/29/20 07:34 97.9 F 75 20 124/80 96 01/29/20 06:51 99 01/29/20 06:50 77 16 99 01/29/20 04:52 94 L 01/29/20 04:50 98.0 F 72 20 125/92 H 85 L 01/29/20 01:01 96 01/29/20 00:58 66 18 100/71 96 01/28/20 23:05 98.0 F 68 16 88/53 L 95 Weight 277 lb 12.8 oz - Physical Exam General: alert & oriented x3, appears well, no apparent distress HEENT: mucus membranes moist Neck: supple neck, no masses, no bruit Cardiac: other (IRR IRR) Lungs: no wheeze, rales, rhonchi, decreased breath sounds Neuro: grossly intact Abdomen: unremarkable, soft Extremities: no cyanosis, no clubbing Skin: clear - Labs Result Diagrams: 01/25/20 04:36 01/29/20 04:50 Troponin/CKMB CK-MB (CK-2) 2.0 ng/mL (0-6.6) 01/24/20 19:48 Troponin I 0.041 ng/mL (< 0.028) H 01/24/20 19:48 - Assessment/Plan Assessment/Plan: 1. Acute on chronic diastolic CHF 2. Persistent AF - probably chronic 3. COPD 4. HTN Will start to transition to home med dosing. Add zaroxolyn 2.5mg today. Patient reports little response to lasix as outpatient. Could try demadex or bumex. AF rate-controlled. No ACT given GIB history.
[2020-01-29] MEDS ORDERED: Metolazone 2.5 MG TAB PO SCH (11:30)
[2020-01-29 11:42] LABS: Base Excess 9.8 mEq/L (-2.0 to +3.0); Calcium, Ionized (venous) 1.04 mmol/L (1.16-1.32); Chloride (ABG LAB) 90 mmol/L (98-106); Hemoglobin (Hb) 11.5 g/dL (12.6-17.4); Potassium - ABG Lab 3.67 mmol/L (3.70-5.30); Sodium 136.2 mmol/L (133-146); pH (venous) 7.46 (7.32-7.43)
[2020-01-29 11:43] LABS: Actual Bicarbonate (HCO3v) 35 mEq/L (22-28)
[2020-01-29] MEDS ORDERED: Sodium Chloride 0.9% 250 ML 250 ML IVPB SCH (13:15)
[2020-01-29] MEDS ORDERED: Sodium Chloride 0.9% 250 ML IV SCH (13:15)
[2020-01-29] MEDS ORDERED: Torsemide 20 MG TAB PO SCH (14:00)
--- NOTE | 2020-01-29 15:09 | PDOC.HOSPP ---
- Subjective Encounter Date: 01/29/20 Encounter Time: 09:00 Subjective: no overnight events. This morning, somewhat improved breathing, no other complaints. VBG consistent with compensated metabolic alkalosis likely due to aggressive diuresis. Later this morning, became hypotensive and complained of dizziness. Held antiHTN and diuresis - Objective Vital Signs & Weight: Vital Signs (12 hours) Temp Pulse Resp BP Pulse Ox 01/29/20 15:04 98.5 F 76 20 107/70 96 01/29/20 12:45 94 16 89/59 L 94 L 01/29/20 12:12 75 16 89 L 01/29/20 12:00 98.4 F 01/29/20 08:05 75 01/29/20 07:34 97.9 F 75 20 124/80 96 01/29/20 06:51 99 01/29/20 06:50 77 16 99 01/29/20 04:52 94 L 01/29/20 04:50 98.0 F 72 20 125/92 H 85 L Weight Weight 277 lb 12.8 oz Most Recent Monitor Data Heart Rate from ECG 83 NIBP 131/93 NIBP BP-Mean 105 Respiration from ECG 22 SpO2 97 I&O: 01/28/20 01/29/20 01/30/20 06:59 06:59 06:59 Intake Total 720 600 Output Total 5727 6734 Balance -4563 -1336 Result Diagrams: 01/25/20 04:36 01/29/20 04:50 Hospitalist ROS - Review of Systems Constitutional: denies: chills, sweats Respiratory: reports: SOB with excertion. denies: cough, shortness of breath Cardiovascular: reports: edema (improving). denies: chest pain, palpitations, orthopnea Gastrointestinal: denies: nausea, vomiting, abdominal pain - Medication Medications: Active Medications Generic Name Dose Route Start Last Admin Trade Name Freq PRN Reason Stop Dose Admin Acetaminophen 650 mg 01/24/20 13:12 01/24/20 17:28 Tylenol PO 650 mg Q6H PRN Administration Fever > 101 Hydrocodone Bitart/Acetaminophen 1 tab 01/24/20 04:01 01/29/20 08:06 [place] 5/325 PO 1 tab Q6H PRN Administration Pain Albuterol/Ipratropium 3 ml 01/28/20 19:00 01/29/20 12:12 Duoneb NEB 3 ml [id number] MEENA Administration Aspirin 81 mg 01/25/20 09:00 01/29/20 08:05 Ecotrin PO 81 mg DAILY MEENA Administration Carbamazepine 200 mg 01/24/20 21:00 01/29/20 08:05 Tegretol PO 200 mg BID MEENA Administration Carvedilol 25 mg 01/24/20 21:00 01/29/20 08:05 Coreg PO 25 mg BID MEENA Administration Clopidogrel Bisulfate 75 mg 01/25/20 09:00 01/29/20 08:05 Plavix PO 75 mg QAM MEENA Administration Duloxetine HCl 30 mg 01/25/20 09:00 01/29/20 08:06 Cymbalta PO 30 mg QAM MEENA Administration Isosorbide Mononitrate 60 mg 01/25/20 09:00 01/29/20 08:04 Imdur Er PO 60 mg DAILY MEENA Administration Lisinopril 10 mg 01/29/20 09:00 01/29/20 08:05 Zestril PO 10 mg DAILY MEENA Administration Methylcellulose 1,000 mg 01/24/20 21:00 01/28/20 20:22 Citrucel PO 1,000 mg QPM MEENA Administration Pantoprazole Sodium 40 mg 01/24/20 09:00 01/29/20 08:06 Protonix PO 40 mg DAILY MEENA Administration Prednisone 40 mg 01/29/20 08:00 01/29/20 08:06 Prednisone PO 40 mg QAM-WM MEENA Administration Senna/Docusate Sodium 2 tab 01/25/20 11:46 01/27/20 23:00 Senokot S PO 2 tab BIDPRN PRN Administration Constipation Sodium Chloride 10 ml 01/24/20 03:34 01/25/20 09:14 Normal Saline Pf FS 10 ml PRN PRN Administration RECONSTITUTION Spironolactone 50 mg 01/28/20 08:00 01/29/20 08:04 Aldactone PO 50 mg QAM-WM MEENA Administration Terazosin HCl 2 mg 01/24/20 21:00 01/28/20 20:22 Hytrin PO 2 mg QPM MEENA Administration Triamcinolone Acetonide 1 gm 01/28/20 22:33 01/28/20 23:02 Kenalog 0.1% Cream TOP 1 applic BID PRN Administration Topical Irritations - Exam General Appearance: NAD, awake alert Neck: no JVD Heart: RRR, no murmur, no gallops Respiratory: no wheezes, no rales, no ronchi, tachypneic (when convereses, slightly improved) Respiratory - other findings: severely reduced breath sounds throughout, unchanged Gastrointestinal: soft, non-tender, non-distended, normal bowel sounds Extremities - other findings: b/l pitting edema to knee level, mildly improved Psychiatric: normal affect, normal behavior, A&O x 3 Hosp A/P - Plan #shortness of breath #reduced systolic function I/O balance grossly negative; VBG consistent with metabolic alkalosis; became hypotensive later in day CXR (01/28) showing no significant change in bilateral patchy infiltrates -held antiHTN and diuresis -when HD stable, resume gentle diuresis; goal ~-1L balance #p. afib CHADVASC 3, HASBLED 4 (recent hematochezia likely due to diverticulosis) -continue to hold anticoagulation; defer to cardiology #COPD exacerbation -procalcitonin low, stopped antibiotics -continue prednisone and inhalers #sleep disorder per patient had sleep study in past but doesnt know result STOPBANG 4; patient lives alone so no witnesses of his sleep, score may be higher VBG showing acidosis as compensation for metabolic alkalosis rather than respiratory acidosis outpatient follow up Disposition: full code per patient
[2020-01-29] MEDS: Senokot S 8.6-50 MG TAB PO PRN (21:02)
[2020-01-29] MEDS: Citrucel 500 MG TAB PO SCH (21:02)
[2020-01-29] MEDS: Terazosin HCl 1 MG CAP PO SCH (21:08)
[2020-01-29] MEDS: Triamcinolone 0.1% Cream 15 GM TUBE TOP PRN (21:08)
[2020-01-30 05:32] LABS: BUN (Urea Nitrogen) 41 mg/dL (8.4-25.7); Calc. Creatinine Clearance 84 mL/min (70-130); Calcium 8.7 mg/dL (7.8-10.44); Estimated GFR-MDRD 45; Glucose 118 mg/dL (80-115); Magnesium 2.3 mg/dL (1.6-2.6)
[2020-01-30 05:47] LABS: Anion Gap 19 mmol/L (10-20); Carbon Dioxide 34 mmol/L (23-31); Chloride 90 mmol/L (98-107); Potassium 3.4 mmol/L (3.5-5.1); Sodium 140 mmol/L (136-145)
[2020-01-30] MEDS ORDERED: Metolazone 2.5 MG TAB PO SCH (08:30)
[2020-01-30] MEDS: DULoxetine 30 MG CAP PO SCH (08:34)
[2020-01-30] MEDS: carBAMazepine 200 MG TAB PO SCH ×2 (08:34→21:20)
[2020-01-30] MEDS: predniSONE 20 MG TAB PO SCH (08:34)
[2020-01-30] MEDS: Clopidogrel Bisulfate 75 MG TAB PO SCH (08:34)
[2020-01-30] MEDS: Aspirin 81 mg Enteric Coated Tablet PO SCH (08:34)
[2020-01-30] MEDS: Lisinopril 5 MG TAB PO SCH (08:35)
[2020-01-30] MEDS: HYDROcodone/Acetaminophen 5/325 mg Tablet PO PRN ×2 (08:38→21:47)
[2020-01-30] MEDS: Spironolactone 25 MG TAB PO SCH (08:42)
[2020-01-30] MEDS ORDERED: Torsemide 10 MG TAB PO SCH ×2 (09:00→21:00)
--- NOTE | 2020-01-30 13:52 | PDOC.HOSPP ---
- Subjective Encounter Date: 01/30/20 Encounter Time: 08:00 Subjective: no overnight events. this morning, endorses resolution of lightheadedness, shortness of breath on exertion persists but improved - Objective Vital Signs & Weight: Vital Signs (12 hours) Temp Pulse Resp BP BP Pulse Ox 01/30/20 11:55 99.0 F 77 18 137/88 96 01/30/20 08:35 72 01/30/20 08:07 97.9 F 74 24 H 114/90 95 01/30/20 07:38 72 20 98 01/30/20 04:00 97.9 F 76 12 95/54 L 95 Weight Weight 275 lb 4.8 oz Most Recent Monitor Data Heart Rate from ECG 83 NIBP 131/93 NIBP BP-Mean 105 Respiration from ECG 22 SpO2 97 I&O: 01/29/20 01/30/20 01/31/20 06:59 06:59 06:59 Intake Total 600 1225 480 Output Total 3975 2050 Balance -5825 -824 397 Result Diagrams: 01/25/20 04:36 01/30/20 04:52 Hospitalist ROS - Review of Systems Constitutional: denies: chills, sweats Respiratory: reports: SOB with excertion. denies: cough, shortness of breath Cardiovascular: reports: edema. denies: chest pain, palpitations Gastrointestinal: denies: nausea, vomiting, abdominal pain, diarrhea Genitourinary: denies: dysuria, incontinence, hematuria - Medication Medications: Active Medications Generic Name Dose Route Start Last Admin Trade Name Freq PRN Reason Stop Dose Admin Acetaminophen 650 mg 01/24/20 13:12 01/24/20 17:28 Tylenol PO 650 mg Q6H PRN Administration Fever > 101 Hydrocodone Bitart/Acetaminophen 1 tab 01/24/20 04:01 01/30/20 08:38 [place] 5/325 PO 1 tab Q6H PRN Administration Pain Albuterol/Ipratropium 3 ml 01/28/20 19:00 01/30/20 07:38 Duoneb NEB 3 ml [id number] MEENA Administration Aspirin 81 mg 01/25/20 09:00 01/30/20 08:34 Ecotrin PO 81 mg DAILY MEENA Administration Carbamazepine 200 mg 01/24/20 21:00 01/30/20 08:34 Tegretol PO 200 mg BID MEENA Administration Clopidogrel Bisulfate 75 mg 01/25/20 09:00 01/30/20 08:34 Plavix PO 75 mg QAM MEENA Administration Duloxetine HCl 30 mg 01/25/20 09:00 01/30/20 08:34 Cymbalta PO 30 mg QAM MEENA Administration Isosorbide Mononitrate 60 mg 01/25/20 09:00 01/30/20 08:34 Imdur Er PO Not Given DAILY [facility] Lisinopril 10 mg 01/29/20 09:00 01/30/20 08:35 Zestril PO Not Given DAILY [facility] Methylcellulose 1,000 mg 01/24/20 21:00 01/29/20 21:02 Citrucel PO 1,000 mg QPM MEENA Administration Pantoprazole Sodium 40 mg 01/24/20 09:00 01/30/20 08:35 Protonix PO 40 mg DAILY MEENA Administration Prednisone 40 mg 01/29/20 08:00 01/30/20 08:34 Prednisone PO 40 mg QAM-WM MEENA Administration Senna/Docusate Sodium 2 tab 01/25/20 11:46 01/29/20 21:02 Senokot S PO 2 tab BIDPRN PRN Administration Constipation Sodium Chloride 10 ml 01/24/20 03:34 01/25/20 09:14 Normal Saline Pf FS 10 ml PRN PRN Administration RECONSTITUTION Terazosin HCl 2 mg 01/24/20 21:00 01/29/20 21:08 Hytrin PO Not Given QPM MEENA Torsemide 10 mg 01/30/20 09:00 01/30/20 11:49 Demadex PO 10 mg DAILY MEENA Administration Triamcinolone Acetonide 1 gm 01/28/20 22:33 01/29/20 21:08 Kenalog 0.1% Cream TOP 1 applic BID PRN Administration Topical Irritations - Exam General Appearance: NAD, awake alert Neck: no JVD Heart: RRR, no murmur, no gallops, no rubs Respiratory: CTAB, no wheezes, no rales, no ronchi, tachypneic (when conversing , improved) Gastrointestinal: soft, non-tender, non-distended, normal bowel sounds Extremities - other findings: b/l equal pitting Psychiatric: normal affect, normal behavior, A&O x 3 Hosp A/P - Plan #shortness of breath #reduced systolic function I/O negative, metabolic alkalosis improving CXR (01/28) showing no significant change in bilateral patchy infiltrates -torsemide 10mg PO bid for gentler diuresis -strict I/O -If HTN, resume previous antiHTN regimen #ANDREZ likely due to aggressive disuresis gentler diuresis #p. afib currently sinus CHADVASC 3, HASBLED 4 (recent hematochezia likely due to diverticulosis) -continue to hold anticoagulation; defer to cardiology #COPD exacerbation -procalcitonin low, stopped antibiotics -continue prednisone and inhalers #sleep disorder per patient had sleep study in past but doesnt know result STOPBANG 4; patient lives alone so no witnesses of his sleep, score may be higher VBG showing acidosis as compensation for metabolic alkalosis rather than respiratory acidosis outpatient follow up Disposition: full code per patient
[2020-01-30] MEDS: Carvedilol 6.25 MG TAB PO SCH (17:50)
--- NOTE | 2020-01-30 19:37 | PRG ---
DATE OF SERVICE: 01/30/2020 SUBJECTIVE: Mr. Knutson is breathing somewhat better. No chest pain. OBJECTIVE: VITAL SIGNS: Blood pressure 130/70, pulse 80. LUNGS: Clear. CARDIAC: Irregularly irregular. ABDOMEN: Soft, nontender. He is obese. EXTREMITIES: There is only mild edema. PERTINENT LABORATORY DATA: The creatinine went up to 1.54. ASSESSMENT: 1. Diastolic heart failure, improved. 2. Chronic atrial fibrillation, rate controlled. 3. Some chronic obstructive pulmonary disease. PLAN: Diuretics are on hold today, probably resume tomorrow. Depending on how the lab looks tomorrow, possibly can go home tomorrow. Job ID: [id number]
[2020-01-30] MEDS: Terazosin HCl 1 MG CAP PO SCH (21:20)
[2020-01-30] MEDS: Citrucel 500 MG TAB PO SCH (21:46)
[2020-01-31 05:44] LABS: BUN (Urea Nitrogen) 38 mg/dL (8.4-25.7); Calc. Creatinine Clearance 98 mL/min (70-130); Calcium 9.1 mg/dL (7.8-10.44); Estimated GFR-MDRD 55; Glucose 142 mg/dL (80-115)
[2020-01-31] MEDS: HYDROcodone/Acetaminophen 5/325 mg Tablet PO PRN ×2 (06:22→21:19)
[2020-01-31 07:55] LABS: Chloride 87 mmol/L (98-107); Potassium 3.7 mmol/L (3.5-5.1); Sodium 135 mmol/L (136-145)
[2020-01-31 07:57] LABS: Carbon Dioxide 33 mmol/L (23-31)
[2020-01-31 07:58] LABS: Anion Gap 19 mmol/L (10-20)
[2020-01-31] MEDS ORDERED: Furosemide 20 MG TAB PO SCH (09:00)
[2020-01-31] MEDS ORDERED: Spironolactone 25 MG TAB PO SCH (09:00)
[2020-01-31] MEDS: carBAMazepine 200 MG TAB PO SCH ×2 (09:56→21:19)
[2020-01-31] MEDS: Aspirin 81 mg Enteric Coated Tablet PO SCH (09:56)
[2020-01-31] MEDS: Clopidogrel Bisulfate 75 MG TAB PO SCH (09:56)
[2020-01-31] MEDS: predniSONE 20 MG TAB PO SCH (09:56)
[2020-01-31] MEDS: DULoxetine 30 MG CAP PO SCH (09:57)
[2020-01-31] MEDS: Carvedilol 6.25 MG TAB PO SCH ×3 (10:04→16:48)
[2020-01-31] MEDS: Furosemide 40 MG TAB PO SCH ×2 (10:05→13:54)
[2020-01-31] MEDS: Lisinopril 10 MG TAB PO SCH (10:05)
--- NOTE | 2020-01-31 10:26 | PRG ---
DATE OF SERVICE: 01/31/2020 SUBJECTIVE: Mr. Knutson is breathing better, much more comfortable. OBJECTIVE: VITAL SIGNS: Blood pressure is 136/89, pulse 82. LUNGS: Clear. CARDIAC: Normal S1. Normal S2. No new murmur, rub, or gallop. ABDOMEN: Obese, nontender. EXTREMITIES: Mild edema. ASSESSMENT: 1. Congestive heart failure, diastolic, acute on chronic, improved. 2. Renal failure, improved. Creatinine down to 1.3. 3. Hypertension. PLAN: 1. Spironolactone will be resumed. 2. Lisinopril resumed. 3. Oral diuretics. 4. Check his creatinine tomorrow. If it is stable, he can be released back to the detention. Job ID: [id number]
--- NOTE | 2020-01-31 19:11 | PDOC.HOSPP ---
- Subjective Encounter Date: 01/31/20 Encounter Time: 09:00 Subjective: no overnight events. this morning, feeling well, breathing is better even on ambulation. Has no complaints - Objective Vital Signs & Weight: Vital Signs (12 hours) Temp Pulse Pulse Pulse Resp BP BP 01/31/20 18:33 77 18 01/31/20 17:32 01/31/20 16:48 98/65 01/31/20 16:00 80 20 01/31/20 14:15 72 14 01/31/20 11:27 97.5 F L 81 24 H 01/31/20 10:50 80 77 116/87 01/31/20 10:05 136/89 01/31/20 10:04 136/89 01/31/20 07:56 97.5 F L 82 18 BP BP BP Pulse Ox Pulse Ox Pulse Ox 01/31/20 18:33 96 01/31/20 17:32 94 L 01/31/20 16:48 01/31/20 16:00 98/65 93 L 01/31/20 14:15 01/31/20 11:27 151/88 H 93 L 01/31/20 10:50 138/96 H 95 93 L 01/31/20 10:05 01/31/20 10:04 01/31/20 07:56 136/89 96 Weight Weight 277 lb 3 oz Most Recent Monitor Data Heart Rate from ECG 83 NIBP 131/93 NIBP BP-Mean 105 Respiration from ECG 22 SpO2 97 I&O: 01/30/20 01/31/20 02/01/20 06:59 06:59 06:59 Intake Total 1225 2430 Output Total 2049 1830 1700 Balance -825 600 -1700 Result Diagrams: 01/25/20 04:36 01/31/20 03:51 Hospitalist ROS - Review of Systems Constitutional: denies: chills, sweats Respiratory: reports: SOB with excertion (improved), pleuritic pain. denies: cough, shortness of breath Cardiovascular: reports: edema. denies: chest pain, palpitations, orthopnea, paroxysmal noc. dyspnea Gastrointestinal: denies: nausea, vomiting, abdominal pain, diarrhea Genitourinary: denies: dysuria, incontinence, hematuria - Medication Medications: Active Medications Generic Name Dose Route Start Last Admin Trade Name Freq PRN Reason Stop Dose Admin Acetaminophen 650 mg 01/24/20 13:12 01/24/20 17:28 Tylenol PO 650 mg Q6H PRN Administration Fever > 101 Hydrocodone Bitart/Acetaminophen 1 tab 01/24/20 04:01 01/31/20 06:22 [place] 5/325 PO 1 tab Q6H PRN Administration Pain Albuterol/Ipratropium 3 ml 01/28/20 19:00 01/31/20 18:33 Duoneb NEB 3 ml [id number] MEENA Administration Aspirin 81 mg 01/25/20 09:00 01/31/20 09:56 Ecotrin PO 81 mg DAILY MEENA Administration Carbamazepine 200 mg 01/24/20 21:00 01/31/20 09:56 Tegretol PO 200 mg BID MEENA Administration Carvedilol 12.5 mg 01/30/20 17:00 01/31/20 16:48 Coreg PO Not Given BID-WM MEENA Clopidogrel Bisulfate 75 mg 01/25/20 09:00 01/31/20 09:56 Plavix PO 75 mg QAM MEENA Administration Duloxetine HCl 30 mg 01/25/20 09:00 01/31/20 09:57 Cymbalta PO 30 mg QAM MEENA Administration Furosemide 40 mg 01/31/20 09:00 01/31/20 13:54 Lasix PO 40 mg 0900,1400 MEENA Administration Isosorbide Mononitrate 60 mg 01/25/20 09:00 01/31/20 10:05 Imdur Er PO 60 mg DAILY MEENA Administration Lisinopril 10 mg 01/31/20 09:00 01/31/20 10:05 Zestril PO 10 mg DAILY MEENA Administration Methylcellulose 1,000 mg 01/24/20 21:00 01/30/20 21:46 Citrucel PO 1,000 mg QPM MEENA Administration Pantoprazole Sodium 40 mg 01/24/20 09:00 01/31/20 09:59 Protonix PO 40 mg DAILY MEENA Administration Prednisone 40 mg 01/29/20 08:00 01/31/20 09:56 Prednisone PO 40 mg QAM-WM [facility] Administration Senna/Docusate Sodium 2 tab 01/25/20 11:46 01/29/20 21:02 Senokot S PO 2 tab BIDPRN PRN Administration Constipation Sodium Chloride 10 ml 01/24/20 03:34 08/12/20 09:14 Normal Saline Pf FS 10 ml PRN PRN Administration RECONSTITUTION Terazosin HCl 2 mg 01/24/20 21:00 01/30/20 21:20 Hytrin PO 2 mg QPM MEENA Administration Triamcinolone Acetonide 1 gm 01/28/20 22:33 01/29/20 21:08 Kenalog 0.1% Cream TOP 1 applic BID PRN Administration Topical Irritations - Exam General Appearance: NAD, awake alert Neck: no JVD Heart: RRR, no murmur, no gallops, no rubs Respiratory: CTAB, no wheezes, no rales, no ronchi Gastrointestinal: soft, non-tender, non-distended, normal bowel sounds Extremities: 1+ LE edema (improved) Psychiatric: normal affect, normal behavior, A&O x 3 Hosp A/P - Plan #HTN #reduced systolic function I/O negative, metabolic alkalosis improving CXR (01/28) showing no significant change in bilateral patchy infiltrates -diuresis and antiHTN as per cardiology -strict I/O #ANDREZ likely due to aggressive disuresis diuresis as per cardiology #p. afib currently sinus CHADVASC 3, HASBLED 4 (recent hematochezia likely due to diverticulosis) -continue to hold anticoagulation; defer to cardiology #COPD exacerbation -procalcitonin low, stopped antibiotics -stop prednisone #sleep disorder per patient had sleep study in past but doesnt know result STOPBANG 4; patient lives alone so no witnesses of his sleep, score may be higher VBG showing acidosis as compensation for metabolic alkalosis rather than respiratory acidosis outpatient follow up Disposition: full code per patient
[2020-01-31] MEDS: Terazosin HCl 1 MG CAP PO SCH (21:19)
[2020-01-31] MEDS: Citrucel 500 MG TAB PO SCH (21:19)
[2020-02-01 03:50] LABS: BUN (Urea Nitrogen) 40 mg/dL (8.4-25.7); Calc. Creatinine Clearance 119 mL/min (70-130); Calcium 8.8 mg/dL (7.8-10.44); Estimated GFR-MDRD 68; Glucose 121 mg/dL (80-115)
[2020-02-01 03:59] LABS: Anion Gap 15 mmol/L (10-20); Carbon Dioxide 39 mmol/L (23-31); Chloride 90 mmol/L (98-107); Potassium 3.4 mmol/L (3.5-5.1); Sodium 141 mmol/L (136-145)
[2020-02-01] MEDS: Carvedilol 6.25 MG TAB PO SCH ×2 (09:33→16:47)
[2020-02-01] MEDS: Spironolactone 25 MG TAB PO SCH (09:33)
[2020-02-01] MEDS: carBAMazepine 200 MG TAB PO SCH ×2 (09:39→20:52)
[2020-02-01] MEDS: Clopidogrel Bisulfate 75 MG TAB PO SCH (09:39)
[2020-02-01] MEDS: Aspirin 81 mg Enteric Coated Tablet PO SCH (09:39)
[2020-02-01] MEDS: DULoxetine 30 MG CAP PO SCH (09:40)
[2020-02-01] MEDS: Lisinopril 10 MG TAB PO SCH (09:40)
[2020-02-01] MEDS: Furosemide 40 MG TAB PO SCH ×2 (09:40→13:15)
[2020-02-01] MEDS: HYDROcodone/Acetaminophen 5/325 mg Tablet PO PRN (09:41)
--- NOTE | 2020-02-01 15:41 | PDOC.HOSPP ---
- Subjective Encounter Date: 02/01/20 Encounter Time: 08:00 Subjective: no overnight events. This morning, feeling better, complains of continued dyspnea on exertion. Yesterday, passed Home ox but today failed, so discharge delayed because requires [facility] placement with oxygen - Objective Vital Signs & Weight: Vital Signs (12 hours) Temp Pulse Resp BP BP Pulse Ox 02/01/20 15:22 98.1 F 75 17 105/62 97 02/01/20 14:23 75 18 02/01/20 13:08 77 133/69 02/01/20 12:00 80 19 124/79 93 L 02/01/20 07:40 97.5 F L 74 17 125/84 97 02/01/20 07:23 73 20 02/01/20 04:00 98.3 F 73 18 92/55 L 95 Weight Weight 275 lb 9.6 oz Most Recent Monitor Data Heart Rate from ECG 83 NIBP 131/93 NIBP BP-Mean 105 Respiration from ECG 22 SpO2 97 I&O: 01/31/20 02/01/20 02/02/20 06:59 06:59 06:59 Intake Total 2430 1105 Output Total 1830 2750 Balance 600 -1645 Result Diagrams: 01/25/20 04:36 02/01/20 02:52 Hospitalist ROS - Review of Systems Constitutional: denies: chills, sweats Respiratory: denies: cough, shortness of breath, SOB with excertion Cardiovascular: reports: edema. denies: chest pain, palpitations, orthopnea, paroxysmal noc. dyspnea Gastrointestinal: denies: nausea, vomiting, abdominal pain, diarrhea Genitourinary: denies: dysuria, frequency, hematuria - Medication Medications: Active Medications Generic Name Dose Route Start Last Admin Trade Name Freq PRN Reason Stop Dose Admin Acetaminophen 650 mg 01/24/20 13:12 01/24/20 17:28 Tylenol PO 650 mg Q6H PRN Administration Fever > 101 Hydrocodone Bitart/Acetaminophen 1 tab 01/24/20 04:01 02/01/20 09:41 [place] 5/325 PO 1 tab Q6H PRN Administration Pain Albuterol/Ipratropium 3 ml 01/28/20 19:00 02/01/20 14:23 Duoneb NEB 3 ml [id number] MEENA Administration Aspirin 81 mg 01/25/20 09:00 02/01/20 09:39 Ecotrin PO 81 mg DAILY MEENA Administration Carbamazepine 200 mg 01/24/20 21:00 02/01/20 09:39 Tegretol PO 200 mg BID MEENA Administration Carvedilol 12.5 mg 01/30/20 17:00 02/01/20 09:33 Coreg PO Not Given BID-WM MEENA Clopidogrel Bisulfate 75 mg 01/25/20 09:00 02/01/20 09:39 Plavix PO 75 mg QAM MEENA Administration Duloxetine HCl 30 mg 01/25/20 09:00 02/01/20 09:40 Cymbalta PO 30 mg QAM MEENA Administration Furosemide 40 mg 01/31/20 09:00 02/01/20 13:15 Lasix PO Not Given 0900,1400 [facility] Isosorbide Mononitrate 60 mg 01/25/20 09:00 02/01/20 09:40 Imdur Er PO 60 mg DAILY MEENA Administration Lisinopril 10 mg 01/31/20 09:00 02/01/20 09:40 Zestril PO 10 mg DAILY [facility] Administration Methylcellulose 1,000 mg 01/24/20 21:00 01/31/20 21:19 Citrucel PO 1,000 mg QPM MEENA Administration Pantoprazole Sodium 40 mg 01/24/20 09:00 02/01/20 09:41 Protonix PO 40 mg DAILY [facility] Administration Senna/Docusate Sodium 2 tab 01/25/20 11:46 01/29/20 21:02 Senokot S PO 2 tab BIDPRN PRN Administration Constipation Sodium Chloride 10 ml 01/24/20 03:34 01/25/20 09:14 Normal Saline Pf FS 10 ml PRN PRN Administration RECONSTITUTION Spironolactone 50 mg 02/01/20 08:00 02/01/20 09:33 Aldactone PO Not Given QAM-WM [facility] Terazosin HCl 2 mg 01/24/20 21:00 01/31/20 21:19 Hytrin PO 2 mg QPM MENEA Administration Triamcinolone Acetonide 1 gm 01/28/20 22:33 01/29/20 21:08 Kenalog 0.1% Cream TOP 1 applic BID PRN Administration Topical Irritations - Exam General Appearance: NAD, awake alert Neck: no JVD Heart: irregular Heart - other findings: rate controlled Respiratory: CTAB, no wheezes, no rales, no ronchi Gastrointestinal: soft, non-tender, non-distended, normal bowel sounds Extremities: 1+ LE edema Extremities - other findings: unchanged Psychiatric: normal affect, normal behavior, A&O x 3 Hosp A/P - Plan #HTN #reduced systolic function hypotensive overnight, metabolic alkalosis worse short of breath on exertion; requires oxygen on ambulation -discharge delayed; pending transfer to [facility] -diuresis and antiHTN as per cardiology -strict I/O #ANDREZ (resolved) likely due to aggressive disuresis diuresis as per cardiology #p. afib currently sinus CHADVASC 3, HASBLED 4 (recent hematochezia likely due to diverticulosis) -continue to hold anticoagulation; defer to cardiology #COPD exacerbation (resolved) #sleep disorder outpatient follow up Disposition: full code per patient
[2020-02-01] MEDS ORDERED: Mometasone 100 MCG/Formoterol 5 MCG 120 PUFF INHALER INH SCH (19:15)
[2020-02-01 19:27] LABS: Hemoglobin 10.8 g/dL (14.0-18.0)
--- NOTE | 2020-02-01 19:30 | RAD ---
Chest 2 views HISTORY: Hypoxia. COMPARISON: 01/29/2020. Cardiac silhouette is magnified and enlarged. Shallow inspiration accentuates pulmonary markings. Linear atelectasis remains at each lung base. Now projecting over the lateral aspect of the right mid to upper chest is a subtle wedge-shaped area of parenchymal opacity that has progressed slightly. Mediastinum is midline. No evidence of pneumothorax. IMPRESSION : Slight interval progression of right lung infiltrate within the anterior segment upper lobe or superi or segment lower lobe. Clinical correlation regarding other signs and symptoms of multifocal viral pneumonitis is required. Other findings are stable.
[2020-02-01] MEDS: Mometasone 100 MCG/Formoterol 5 MCG 120 PUFF INHALER INH SCH (20:13)
[2020-02-01] MEDS: Citrucel 500 MG TAB PO SCH (20:52)
[2020-02-02 05:36] LABS: BUN (Urea Nitrogen) 42 mg/dL (8.4-25.7); Calc. Creatinine Clearance 103 mL/min (70-130); Calcium 8.9 mg/dL (7.8-10.44); Estimated GFR-MDRD 58; Glucose 110 mg/dL (80-115); Iron 23 ug/dL (65-175); Iron Binding Capacity, Total 425 mcg/dL (261-462); Magnesium 2.4 mg/dL (1.6-2.6)
[2020-02-02 05:41] LABS: Iron 24 ug/dL (65-175); Iron Binding Capacity, Total 428 mcg/dL (261-462)
[2020-02-02 05:51] LABS: Chloride 91 mmol/L (98-107); Potassium 3.4 mmol/L (3.5-5.1); Sodium 141 mmol/L (136-145)
[2020-02-02 05:54] LABS: Anion Gap 17 mmol/L (10-20); Carbon Dioxide 36 mmol/L (23-31)
[2020-02-02 06:07] LABS: #Basophils 0.1 thou/uL (0.0-0.2); #Eosinphils 0.3 thou/uL (0.0-0.7); #Lymphocytes 1.4 thou/uL (1.20-3.40); #Monocytes 0.7 thou/uL (0.11-0.59); #Neutrophils 4.1 thou/uL (1.40-6.50); %Basophils 1.4 % (0.0-1.0); %Eosinophils 4.1 % (0.0-10.0); %Lymphocytes 21.4 % (21.0-51.0); %Monocytes 11.1 % (0.0-10.0); %Neutrophils 62.1 % (42.0-75.0); Elliptocytes SLIGHT = 2-5 cells (100X) (0-1/hpf); Hemoglobin 11.5 g/dL (14.0-18.0); Hypochromia SLIGHT = 6-15 cells (100X) (0-5/hpf); MDiff Complete? YES; Mean Corpuscular HGB CONC 29.7 g/dL (32.0-36.0); Mean Corpuscular Hemoglobin 23.4 pg (27.0-31.0); Mean Corpuscular Volume 78.7 fL (78.0-98.0); Mean Platelet Volume 9.9 fL (7.4-10.4); Platelet Count 290 thou/uL (130-400); RBC Distribution Width 18.6 % (11.5-14.5); White Blood Cell (WBC) Count 6.7 thou/uL (4.8-10.8)
[2020-02-02] MEDS ORDERED: Potassium Chloride 20 MEQ TAB PO SCH (07:30)
[2020-02-02] MEDS: Mometasone 100 MCG/Formoterol 5 MCG 120 PUFF INHALER INH SCH ×2 (07:33→18:49)
[2020-02-02] MEDS: Spironolactone 25 MG TAB PO SCH (08:19)
[2020-02-02] MEDS: Furosemide 20 MG TAB PO SCH ×2 (08:19→14:39)
[2020-02-02] MEDS: Tamsulosin HCl 0.4 MG CAP PO SCH (08:19)
[2020-02-02] MEDS: Clopidogrel Bisulfate 75 MG TAB PO SCH (08:19)
[2020-02-02] MEDS: DULoxetine 30 MG CAP PO SCH (08:19)
[2020-02-02] MEDS: carBAMazepine 200 MG TAB PO SCH ×2 (08:19→20:03)
[2020-02-02] MEDS: Aspirin 81 mg Enteric Coated Tablet PO SCH (08:19)
[2020-02-02] MEDS: Carvedilol 6.25 MG TAB PO SCH ×2 (08:19→16:45)
[2020-02-02] MEDS: Ferrous Sulfate 325 MG TAB PO SCH (08:20)
[2020-02-02] MEDS: Lisinopril 10 MG TAB PO SCH (08:24)
[2020-02-02] MEDS ORDERED: Furosemide 20 MG TAB PO SCH (09:00)
[2020-02-02] MEDS: Acetaminophen 325 MG TAB PO PRN (16:38)
--- NOTE | 2020-02-02 18:42 | PDOC.HOSPP ---
- Subjective Encounter Date: 02/02/20 Encounter Time: 09:00 Subjective: overnight, used CPAP but mask not comfortably. this morning, breathing improved , dyspnea on exertion persists. Pending placement in [facility] - Objective Vital Signs & Weight: Vital Signs (12 hours) Pulse Pulse Resp BP BP BP Pulse Ox 02/02/20 16:45 99/50 L 02/02/20 12:00 73 16 93/55 L 95 02/02/20 09:50 82 114/64 02/02/20 08:24 125/90 02/02/20 08:19 125/90 02/02/20 08:00 98 Pulse Ox 02/02/20 16:45 02/02/20 12:00 02/02/20 09:50 99 02/02/20 08:24 02/02/20 08:19 02/02/20 08:00 Weight Admit Weight 300 lb 11.2 oz Weight 275 lb 14.183 oz Most Recent Monitor Data Heart Rate from ECG 83 NIBP 131/93 NIBP BP-Mean 105 Respiration from ECG 22 SpO2 97 I&O: 02/01/20 02/02/20 02/03/20 06:59 06:59 06:59 Intake Total 1105 1030 Output Total 2750 1275 Balance -1645 -245 Result Diagrams: 02/02/20 04:32 02/02/20 04:32 Hospitalist ROS - Review of Systems Constitutional: denies: chills, sweats Respiratory: reports: SOB with excertion. denies: cough, shortness of breath, pleuritic pain Cardiovascular: reports: edema. denies: chest pain, palpitations, orthopnea, paroxysmal noc. dyspnea Gastrointestinal: denies: nausea, vomiting, abdominal pain Genitourinary: denies: dysuria, incontinence, hematuria - Medication Medications: Active Medications Generic Name Dose Route Start Last Admin Trade Name Freq PRN Reason Stop Dose Admin Acetaminophen 650 mg 01/24/20 13:12 02/02/20 16:38 Tylenol PO 650 mg Q6H PRN Administration Fever > 101 Hydrocodone Bitart/Acetaminophen 1 tab 01/24/20 04:01 02/01/20 09:41 [place] 5/325 PO 1 tab Q6H PRN Administration Pain Aspirin 81 mg 01/25/20 09:00 02/02/20 08:19 Ecotrin PO 81 mg DAILY MEENA Administration Carbamazepine 200 mg 01/24/20 21:00 02/02/20 08:19 Tegretol PO 200 mg BID MEENA Administration Carvedilol 12.5 mg 02/01/20 17:00 02/02/20 16:45 Coreg PO Not Given BID-WM MEENA Clopidogrel Bisulfate 75 mg 01/25/20 09:00 02/02/20 08:19 Plavix PO 75 mg QAM MEENA Administration Duloxetine HCl 30 mg 01/25/20 09:00 02/02/20 08:19 Cymbalta PO 30 mg QAM MEENA Administration Ferrous Sulfate 325 mg 02/02/20 09:00 02/02/20 08:20 Feosol PO 325 mg Q2D MEENA Administration Furosemide 20 mg 02/02/20 09:00 02/02/20 14:39 Lasix PO 20 mg 0900,1400 MEENA Administration Isosorbide Mononitrate 60 mg 01/25/20 09:00 02/02/20 08:19 Imdur Er PO 60 mg DAILY MEENA Administration Lisinopril 10 mg 01/31/20 09:00 02/02/20 08:24 Zestril PO Not Given DAILY [facility] Methylcellulose 1,000 mg 01/24/20 21:00 02/01/20 20:52 Citrucel PO 1,000 mg QPM MEENA Administration Mometasone Furoate/Formoterol Fumar 1 puff 02/02/20 06:30 02/02/20 07:33 Dulera 100 Mcg/5 Mcg Inhaler INH 1 puff BID-RT MEENA Administration Pantoprazole Sodium 40 mg 01/24/20 09:00 02/02/20 08:20 Protonix PO 40 mg DAILY MEENA Administration Senna/Docusate Sodium 2 tab 01/25/20 11:46 01/29/20 21:02 Senokot S PO 2 tab BIDPRN PRN Administration Constipation Sodium Chloride 10 ml 01/24/20 03:34 01/25/20 09:14 Normal Saline Pf FS 10 ml PRN PRN Administration RECONSTITUTION Spironolactone 50 mg 02/01/20 08:00 02/02/20 08:19 Aldactone PO 50 mg QAM-WM MEENA Administration Tamsulosin HCl 0.4 mg 02/02/20 09:00 02/02/20 08:19 Flomax PO 0.4 mg DAILY MEENA Administration Terazosin HCl 2 mg 01/24/20 21:00 01/31/20 21:19 Hytrin PO 2 mg QPM MEENA Administration Triamcinolone Acetonide 1 gm 01/28/20 22:33 01/29/20 21:08 Kenalog 0.1% Cream TOP 1 applic BID PRN Administration Topical Irritations - Exam General Appearance: NAD, awake alert Neck: no JVD Heart: irregular Heart - other findings: rate controlled Respiratory: no wheezes, no rales, no ronchi Respiratory - other findings: diffusely reduced breath sounds Gastrointestinal: soft, non-tender, normal bowel sounds Extremities: 1+ LE edema Psychiatric: normal affect, normal behavior, A&O x 3 Hosp A/P - Plan #HTN #reduced systolic function continues to have episodes of hypotension, metabolic alkalosis worse short of breath on exertion; requires oxygen on ambulation -pending transfer to [facility] -diuresis; holding antiHTN -strict I/O #ANDREZ (resolved) likely due to aggressive disuresis #p. afib currently sinus CHADVASC 3, HASBLED 4 (recent hematochezia likely due to diverticulosis) -continue to hold anticoagulation; defer to cardiology #COPD exacerbation (resolved) #sleep apnea (witnessed) CPAP at night Disposition: full code per patient
[2020-02-02] MEDS: Citrucel 500 MG TAB PO SCH (20:03)
[2020-02-02] MEDS: HYDROcodone/Acetaminophen 5/325 mg Tablet PO PRN (20:49)
[2020-02-03 05:07] LABS: Anion Gap 13 mmol/L (10-20); BUN (Urea Nitrogen) 32 mg/dL (8.4-25.7); Calc. Creatinine Clearance 138 mL/min (70-130); Calcium 8.8 mg/dL (7.8-10.44); Carbon Dioxide 37 mmol/L (23-31); Chloride 92 mmol/L (98-107); Estimated GFR-MDRD 81; Glucose 114 mg/dL (80-115); Potassium 3.4 mmol/L (3.5-5.1); Sodium 139 mmol/L (136-145)
[2020-02-03] MEDS: Mometasone 100 MCG/Formoterol 5 MCG 120 PUFF INHALER INH SCH (07:26)
[2020-02-03] MEDS ORDERED: Potassium Chloride 20 MEQ TAB PO SCH ×2 (07:45→19:00)
[2020-02-03] MEDS: Carvedilol 6.25 MG TAB PO SCH ×2 (09:09→18:15)
[2020-02-03] MEDS: Clopidogrel Bisulfate 75 MG TAB PO SCH (09:10)
[2020-02-03] MEDS: carBAMazepine 200 MG TAB PO SCH ×2 (09:10→20:53)
[2020-02-03] MEDS: Spironolactone 25 MG TAB PO SCH (09:10)
[2020-02-03] MEDS: Furosemide 20 MG TAB PO SCH (09:11)
[2020-02-03] MEDS: Tamsulosin HCl 0.4 MG CAP PO SCH (09:11)
[2020-02-03] MEDS: Aspirin 81 mg Enteric Coated Tablet PO SCH (09:11)
[2020-02-03] MEDS: Lisinopril 10 MG TAB PO SCH (09:11)
[2020-02-03] MEDS: DULoxetine 30 MG CAP PO SCH (09:11)
--- NOTE | 2020-02-03 10:01 | PRG ---
DATE OF SERVICE: 02/03/2020 SUBJECTIVE: Mr. Knutson is breathing well. No chest pain or pressure. Overall feels well. OBJECTIVE: VITAL SIGNS: Blood pressure 131/94, pulse 70 and irregular. LUNGS: Clear. There is no wheezing. CARDIAC: Irregularly irregular. ABDOMEN: Obese, nontender. EXTREMITIES: Only minimal edema. We did receive records from [facility] in October. The patient had an acute ST-elevation infarct and had a drug-eluting stent placed in the posterior descending artery. 2.5-mm diameter stent that was done on 11/12/2019, 2.5 x 16 Promus [place]. ASSESSMENT: 1. Coronary artery disease, status post drug-eluting stent placed in the posterior descending artery on 11/12/2019 that was done at [facility] by Dr. Rian Martinez. 2. Chronic atrial fibrillation. 3. Diastolic heart failure, stable. PLAN: 1. Resume apixaban 5 mg twice a day starting tomorrow. 2. Stop aspirin. 3. Continue Plavix with a drug-coated stent. 4. Increase furosemide to 40 mg twice a day. 5. He is on spironolactone 50 mg a day. 6. I would recommend a basic metabolic profile in 1 week. 7. He is on isosorbide 60 mg a day. The patient from my standpoint can be released back to the [facility]. Job ID: [id number]
--- NOTE | 2020-02-03 13:49 | PDOC.HOSPP ---
- Subjective Encounter Date: 02/03/20 Encounter Time: 13:00 Subjective: No overnight events. this morning, feeling well and breathing well at rest but endorses desatting after shorter walk than yesterday. Pending [facility] bed - Objective Vital Signs & Weight: Vital Signs (12 hours) Temp Pulse Resp BP BP Pulse Ox 02/03/20 11:56 98.3 F 74 16 135/93 H 95 02/03/20 09:11 131/94 H 02/03/20 07:33 97.7 F 69 18 137/96 H 95 02/03/20 04:00 97.3 F L 70 20 138/90 100 Weight Admit Weight 300 lb 11.2 oz Weight 278 lb 8 oz Most Recent Monitor Data Heart Rate from ECG 83 NIBP 131/93 NIBP BP-Mean 105 Respiration from ECG 22 SpO2 97 I&O: 02/02/20 02/03/20 02/04/20 06:59 06:59 06:59 Intake Total 1030 1440 Output Total 1275 900 Balance -245 540 Result Diagrams: 02/02/20 04:32 02/03/20 04:06 Hospitalist ROS - Review of Systems Constitutional: denies: fever, chills, sweats Respiratory: reports: SOB with excertion. denies: cough, dry, shortness of breath Cardiovascular: denies: chest pain, palpitations, orthopnea Gastrointestinal: denies: nausea, vomiting, abdominal pain Genitourinary: denies: dysuria, frequency, incontinence - Medication Medications: Active Medications Generic Name Dose Route Start Last Admin Trade Name Freq PRN Reason Stop Dose Admin Acetaminophen 650 mg 01/24/20 13:12 02/02/20 16:38 Tylenol PO 650 mg Q6H PRN Administration Fever > 101 Carbamazepine 200 mg 01/24/20 21:00 02/03/20 09:10 Tegretol PO 200 mg BID MEENA Administration Carvedilol 12.5 mg 02/01/20 17:00 02/03/20 09:09 Coreg PO 12.5 mg BID-WM MEENA Administration Clopidogrel Bisulfate 75 mg 01/25/20 09:00 02/03/20 09:10 Plavix PO 75 mg QAM MEENA Administration Duloxetine HCl 30 mg 01/25/20 09:00 02/03/20 09:11 Cymbalta PO 30 mg QAM MEENA Administration Ferrous Sulfate 325 mg 02/02/20 09:00 02/02/20 08:20 Feosol PO 325 mg Q2D MEENA Administration Isosorbide Mononitrate 60 mg 01/25/20 09:00 02/03/20 09:10 Imdur Er PO 60 mg DAILY MEENA Administration Lisinopril 10 mg 02/02/20 18:48 02/03/20 09:11 Zestril PO 10 mg DAILY MEENA Administration Methylcellulose 1,000 mg 01/24/20 21:00 02/02/20 20:03 Citrucel PO 1,000 mg QPM MEENA Administration Mometasone Furoate/Formoterol Fumar 1 puff 02/02/20 06:30 02/03/20 07:26 Dulera 100 Mcg/5 Mcg Inhaler INH 1 puff BID-RT MEENA Administration Pantoprazole Sodium 40 mg 01/24/20 09:00 02/03/20 09:10 Protonix PO 40 mg DAILY MEENA Administration Senna/Docusate Sodium 2 tab 01/25/20 11:46 01/29/20 21:02 Senokot S PO 2 tab BIDPRN PRN Administration Constipation Sodium Chloride 10 ml 01/24/20 03:34 01/25/20 09:14 Normal Saline Pf FS 10 ml PRN PRN Administration RECONSTITUTION Spironolactone 50 mg 02/01/20 08:00 02/03/20 09:10 Aldactone PO 50 mg QAM-WM MEENA Administration Tamsulosin HCl 0.4 mg 02/02/20 09:00 02/03/20 09:11 Flomax PO 0.4 mg DAILY MEENA Administration Triamcinolone Acetonide 1 gm 01/28/20 22:33 01/29/20 21:08 Kenalog 0.1% Cream TOP 1 applic BID PRN Administration Topical Irritations - Exam General Appearance: NAD, awake alert Neck: no JVD Heart: no murmur, no gallops, no rubs, irregular Respiratory: CTAB, no wheezes, no rales, no ronchi Respiratory - other findings: diffusely reduced breath sounds Gastrointestinal: soft, non-tender, non-distended, normal bowel sounds Extremities - other findings: pitting bilateral equal to midtibial level, improved Psychiatric: normal affect, normal behavior, A&O x 3 Hosp A/P - Plan #HTN #reduced systolic function continues to have episodes of hypotension, metabolic alkalosis improved after reducing diuresis short of breath on exertion; requires oxygen on ambulation -pending transfer to [facility] -diuresis per cardiology; AntiHTN with holding parameters -strict I/O #ANDREZ (resolved) likely due to aggressive disuresis #chronic anemia -Iron panel mixed; likely iron deficiency with anemia of inflammation -started ferrous sulfate #p. afib currently afib CHADVASC 3, HASBLED 4 (recent hematochezia likely due to diverticulosis) -continue to hold anticoagulation; per cardiology, will resume apixaban 5mg PO bid (02/03) #COPD exacerbation (resolved) on exam, severly reduced breath sounds continue maintenance and rescue inhalers #sleep apnea (witnessed) CPAP at night Disposition: full code per patient ELOS: pending [facility] bed
[2020-02-03] MEDS ORDERED: Electrolyte Replacement Protoc 1 EACH EACH FS SCH (14:00)
[2020-02-03] MEDS ORDERED: Electrolyte Replacement Protocol FS PRN (14:00)
[2020-02-03] MEDS: Furosemide 40 MG TAB PO SCH (15:20)
[2020-02-03] MEDS ORDERED: Potassium Chloride 10 MEQ TAB PO SCH (17:00)
[2020-02-03] MEDS: Mometasone 200 MCG/Formoterol 5 MCG 120 PUFF INHALER INH SCH (18:54)
[2020-02-03] MEDS: Acetaminophen 325 MG TAB PO PRN (20:52)
[2020-02-03] MEDS: Citrucel 500 MG TAB PO SCH (20:53)
[2020-02-04 04:59] LABS: Anion Gap 12 mmol/L (10-20); BUN (Urea Nitrogen) 28 mg/dL (8.4-25.7); Calc. Creatinine Clearance 121 mL/min (70-130); Carbon Dioxide 37 mmol/L (23-31); Chloride 97 mmol/L (98-107); Estimated GFR-MDRD 70; Glucose 112 mg/dL (80-115); Magnesium 2.3 mg/dL (1.6-2.6); Potassium 4.6 mmol/L (3.5-5.1); Sodium 141 mmol/L (136-145)
[2020-02-04] MEDS: Acetaminophen 325 MG TAB PO PRN ×2 (05:39→21:37)
[2020-02-04] MEDS: Mometasone 200 MCG/Formoterol 5 MCG 120 PUFF INHALER INH SCH ×2 (07:10→18:37)
[2020-02-04] MEDS: Carvedilol 6.25 MG TAB PO SCH ×2 (09:03→17:48)
[2020-02-04] MEDS: Potassium Chloride 10 MEQ TAB PO SCH (09:05)
[2020-02-04] MEDS: Spironolactone 25 MG TAB PO SCH (09:05)
[2020-02-04] MEDS: Tamsulosin HCl 0.4 MG CAP PO SCH (09:05)
[2020-02-04] MEDS: Lisinopril 10 MG TAB PO SCH (09:05)
[2020-02-04] MEDS: Furosemide 40 MG TAB PO SCH ×2 (09:05→13:39)
[2020-02-04] MEDS: DULoxetine 30 MG CAP PO SCH (09:06)
[2020-02-04] MEDS: Clopidogrel Bisulfate 75 MG TAB PO SCH (09:06)
[2020-02-04] MEDS: carBAMazepine 200 MG TAB PO SCH ×2 (09:06→21:38)
[2020-02-04] MEDS: Ferrous Sulfate 325 MG TAB PO SCH (09:07)
--- NOTE | 2020-02-04 11:49 | PDOC.HOSPP ---
- Subjective Encounter Date: 02/04/20 Encounter Time: 08:30 Subjective: no sob,feels better he is trying to ambulate next to his bed - Objective Vital Signs & Weight: Vital Signs (12 hours) Temp Pulse Resp BP BP BP Pulse Ox 02/04/20 11:06 97.9 F 69 18 127/76 95 02/04/20 09:03 120/83 02/04/20 07:10 98.0 F 69 16 139/98 H 95 02/04/20 04:00 98.2 F 65 13 137/78 98 02/04/20 01:07 18 Weight Admit Weight 300 lb 11.2 oz Weight 275 lb 9.6 oz Most Recent Monitor Data Heart Rate from ECG 83 NIBP 131/93 NIBP BP-Mean 105 Respiration from ECG 22 SpO2 97 I&O: 02/03/20 02/04/20 02/05/20 06:59 06:59 06:59 Intake Total 1440 1490 Output Total 900 1450 Balance 540 40 Result Diagrams: 02/02/20 04:32 02/04/20 04:29 Hospitalist ROS - Medication Medications: Active Medications Generic Name Dose Route Start Last Admin Trade Name Freq PRN Reason Stop Dose Admin Acetaminophen 650 mg 01/24/20 13:12 02/04/20 05:39 Tylenol PO 650 mg Q6H PRN Administration Fever > 101 Carbamazepine 200 mg 01/24/20 21:00 02/04/20 09:06 Tegretol PO 200 mg BID MEENA Administration Carvedilol 12.5 mg 02/01/20 17:00 02/04/20 09:03 Coreg PO 12.5 mg BID-WM MEENA Administration Clopidogrel Bisulfate 75 mg 01/25/20 09:00 02/04/20 09:06 Plavix PO 75 mg QAM MEENA Administration Duloxetine HCl 30 mg 01/25/20 09:00 02/04/20 09:06 Cymbalta PO 30 mg QAM MEENA Administration Ferrous Sulfate 325 mg 02/02/20 09:00 02/04/20 09:07 Feosol PO 325 mg Q2D MENEA Administration Furosemide 40 mg 02/03/20 14:00 02/04/20 09:05 Lasix PO 40 mg 0900,1400 MEENA Administration Isosorbide Mononitrate 60 mg 01/25/20 09:00 02/04/20 09:06 Imdur Er PO 60 mg DAILY MEENA Administration Lisinopril 10 mg 02/02/20 18:48 02/04/20 09:05 Zestril PO 10 mg DAILY MEENA Administration Methylcellulose 1,000 mg 01/24/20 21:00 02/03/20 20:53 Citrucel PO 1,000 mg QPM MEENA Administration Mometasone Furoate/Formoterol Fumar 1 puff 02/03/20 18:30 02/04/20 07:10 Dulera 200 Mcg/5 Mcg Inhaler INH 1 puff BID-RT MEENA Administration Pantoprazole Sodium 40 mg 01/24/20 09:00 02/04/20 09:05 Protonix PO 40 mg DAILY MEENA Administration Potassium Chloride 10 meq 02/04/20 08:00 02/04/20 09:05 Klor-Con 10 PO 10 meq QAM-WM MEENA Administration Senna/Docusate Sodium 2 tab 01/25/20 11:46 01/29/20 21:02 Senokot S PO 2 tab BIDPRN PRN Administration Constipation Sodium Chloride 10 ml 01/24/20 03:34 01/25/20 09:14 Normal Saline Pf FS 10 ml PRN PRN Administration RECONSTITUTION Spironolactone 50 mg 02/01/20 08:00 02/04/20 09:05 Aldactone PO 50 mg QAM-WM MEENA Administration Tamsulosin HCl 0.4 mg 02/02/20 09:00 02/04/20 09:05 Flomax PO 0.4 mg DAILY MEENA Administration Triamcinolone Acetonide 1 gm 01/28/20 22:33 01/29/20 21:08 Kenalog 0.1% Cream TOP 1 applic BID PRN Administration Topical Irritations - Exam General Appearance: awake alert Eye: PERRL, anicteric sclera ENT: no oropharyngeal lesions, moist mucosa Neck: supple, no JVD Heart: no murmur, irregular Respiratory: no wheezes, no rales Gastrointestinal: soft, non-tender, non-distended, normal bowel sounds Extremities: no cyanosis, no edema Neurological: cranial nerve grossly intact, no focal deficits Psychiatric: normal affect, A&O x 3 Hosp A/P (1) Acute exacerbation of CHF (congestive heart failure) Code(s): I50.9 - HEART FAILURE, UNSPECIFIED Status: Acute Qualifiers: Heart failure type: combined systolic and diastolic Qualified Code(s): I50.43 - Acute on chronic combined systolic (congestive) and diastolic ( congestive) heart failure (2) TRES (obstructive sleep apnea) Code(s): G47.33 - OBSTRUCTIVE SLEEP APNEA (ADULT) (PEDIATRIC) Status: Suspected (3) Afib Code(s): I48.91 - UNSPECIFIED ATRIAL FIBRILLATION Status: Acute Qualifiers: Atrial fibrillation type: paroxysmal Qualified Code(s): I48.0 - Paroxysmal atrial fibrillation (4) COPD (chronic obstructive pulmonary disease) Status: Chronic Qualifiers: COPD type: chronic bronchitis (5) HTN (hypertension) Code(s): I10 - ESSENTIAL (PRIMARY) HYPERTENSION Status: Chronic Qualifiers: Hypertension type: essential hypertension Qualified Code(s): I10 - Essential (primary) hypertension (6) Hepatitis C Code(s): B19.20 - UNSPECIFIED VIRAL HEPATITIS C WITHOUT HEPATIC COMA Status: Chronic Qualifiers: Viral hepatitis chronicity: chronic Hepatic coma status: without hepatic coma Qualified Code(s): B18.2 - Chronic viral hepatitis C (7) Obesity Code(s): E66.9 - OBESITY, UNSPECIFIED Status: Chronic Qualifiers: Obesity classification: adult class 2 (BMI 35 - 39.9) Body mass index: BMI 37.0-37.9 - Plan is on lasix, spironolactone, coreg, imdur er, eliquis, plavix, flomax, tegretol , cymbalta and iron hemostable is awaiting [facility] bed, may dc anytime if they can take him try and taper oxygen off if his ambulatory spo2 >90%, is requiring cpap at night
[2020-02-04] MEDS: Citrucel 500 MG TAB PO SCH (21:37)
[2020-02-04] MEDS: Apixaban 5 MG TAB PO SCH (21:38)
[2020-02-05] MEDS: Acetaminophen 325 MG TAB PO PRN (03:57)
[2020-02-05 07:02] LABS: Hemoglobin 10.8 g/dL (14.0-18.0); Platelet Count 225 thou/uL (130-400)
[2020-02-05 07:20] LABS: Anion Gap 12 mmol/L (10-20); BUN (Urea Nitrogen) 26 mg/dL (8.4-25.7); Calc. Creatinine Clearance 140 mL/min (70-130); Calcium 8.7 mg/dL (7.8-10.44); Carbon Dioxide 32 mmol/L (23-31); Chloride 98 mmol/L (98-107); Estimated GFR-MDRD 80; Glucose 115 mg/dL (80-115); Potassium 3.9 mmol/L (3.5-5.1); Sodium 138 mmol/L (136-145)
[2020-02-05] MEDS: Mometasone 200 MCG/Formoterol 5 MCG 120 PUFF INHALER INH SCH ×2 (07:53→18:41)
[2020-02-05] MEDS: Carvedilol 6.25 MG TAB PO SCH ×2 (09:02→16:55)
[2020-02-05] MEDS: Spironolactone 25 MG TAB PO SCH (09:03)
[2020-02-05] MEDS: Lisinopril 10 MG TAB PO SCH (09:04)
[2020-02-05] MEDS: Furosemide 40 MG TAB PO SCH ×2 (09:04→13:53)
[2020-02-05] MEDS: Tamsulosin HCl 0.4 MG CAP PO SCH (09:04)
[2020-02-05] MEDS: Clopidogrel Bisulfate 75 MG TAB PO SCH (09:04)
[2020-02-05] MEDS: Potassium Chloride 10 MEQ TAB PO SCH (09:04)
[2020-02-05] MEDS: DULoxetine 30 MG CAP PO SCH (09:04)
[2020-02-05] MEDS: Apixaban 5 MG TAB PO SCH ×2 (09:04→20:55)
[2020-02-05] MEDS: carBAMazepine 200 MG TAB PO SCH ×2 (09:04→20:55)
--- NOTE | 2020-02-05 11:36 | PDOC.HOSPP ---
- Subjective Encounter Date: 02/05/20 Encounter Time: 10:30 Subjective: says he needs oxygen to breathe better he wears cpap at night no sob or chest pain now is mobilizing in room - Objective Vital Signs & Weight: Vital Signs (12 hours) Temp Pulse Resp BP BP BP Pulse Ox 02/05/20 09:02 133/92 H 02/05/20 07:29 98.5 F 71 16 137/69 97 02/05/20 03:44 98.6 F 76 20 140/88 93 L Weight Admit Weight 300 lb 11.2 oz Weight 281 lb 4.8 oz Most Recent Monitor Data Heart Rate from ECG 83 NIBP 131/93 NIBP BP-Mean 105 Respiration from ECG 22 SpO2 97 I&O: 02/04/20 02/05/20 02/06/20 06:59 06:59 06:59 Intake Total 1490 1440 Output Total 1450 800 Balance 40 640 Result Diagrams: 02/05/20 06:54 02/05/20 06:54 Hospitalist ROS - Medication Medications: Active Medications Generic Name Dose Route Start Last Admin Trade Name Freq PRN Reason Stop Dose Admin Acetaminophen 650 mg 01/24/20 13:12 02/05/20 03:57 Tylenol PO 650 mg Q6H PRN Administration Fever > 101 Apixaban 5 mg 02/04/20 21:00 02/05/20 09:04 Eliquis PO 5 mg BID MEENA Administration Carbamazepine 200 mg 01/24/20 21:00 02/05/20 09:04 Tegretol PO 200 mg BID MEENA Administration Carvedilol 12.5 mg 02/01/20 17:00 02/05/20 09:02 Coreg PO 12.5 mg BID-WM MEENA Administration Clopidogrel Bisulfate 75 mg 01/25/20 09:00 02/05/20 09:04 Plavix PO 75 mg QAM MEENA Administration Duloxetine HCl 30 mg 01/25/20 09:00 02/05/20 09:04 Cymbalta PO 30 mg QAM MEENA Administration Ferrous Sulfate 325 mg 02/02/20 09:00 02/04/20 09:07 Feosol PO 325 mg Q2D MEENA Administration Furosemide 40 mg 02/03/20 14:00 02/05/20 09:04 Lasix PO 40 mg 0900,1400 MEENA Administration Isosorbide Mononitrate 60 mg 01/25/20 09:00 02/05/20 09:04 Imdur Er PO 60 mg DAILY MEENA Administration Lisinopril 10 mg 02/02/20 18:48 02/05/20 09:04 Zestril PO 10 mg DAILY MEENA Administration Methylcellulose 1,000 mg 01/24/20 21:00 02/04/20 21:37 Citrucel PO 1,000 mg QPM MEENA Administration Mometasone Furoate/Formoterol Fumar 1 puff 02/03/20 18:30 02/05/20 07:53 Dulera 200 Mcg/5 Mcg Inhaler INH 1 puff BID-RT MEENA Administration Pantoprazole Sodium 40 mg 01/24/20 09:00 02/05/20 09:04 Protonix PO 40 mg DAILY MEENA Administration Potassium Chloride 10 meq 02/04/20 08:00 02/05/20 09:04 Klor-Con 10 PO 10 meq QAM-WM MEENA Administration Senna/Docusate Sodium 2 tab 01/25/20 11:46 01/29/20 21:02 Senokot S PO 2 tab BIDPRN PRN Administration Constipation Sodium Chloride 10 ml 01/24/20 03:34 01/25/20 09:14 Normal Saline Pf FS 10 ml PRN PRN Administration RECONSTITUTION Spironolactone 50 mg 02/01/20 08:00 02/05/20 09:03 Aldactone PO 50 mg QAM-WM MEENA Administration Tamsulosin HCl 0.4 mg 02/02/20 09:00 02/05/20 09:04 Flomax PO 0.4 mg DAILY MEENA Administration Triamcinolone Acetonide 1 gm 01/28/20 22:33 01/29/20 21:08 Kenalog 0.1% Cream TOP 1 applic BID PRN Administration Topical Irritations - Exam General Appearance: awake alert Eye: PERRL, anicteric sclera ENT: no oropharyngeal lesions, moist mucosa Neck: supple, no JVD Heart: RRR, no murmur Respiratory: no wheezes, no rales Gastrointestinal: soft, non-tender, non-distended, normal bowel sounds Extremities: no cyanosis, no edema Skin: normal turgor, no rashes Neurological: cranial nerve grossly intact, no focal deficits Psychiatric: normal affect, A&O x 3 Hosp A/P (1) Acute exacerbation of CHF (congestive heart failure) Code(s): I50.9 - HEART FAILURE, UNSPECIFIED Status: Acute Qualifiers: Heart failure type: combined systolic and diastolic Qualified Code(s): I50.43 - Acute on chronic combined systolic (congestive) and diastolic ( congestive) heart failure (2) TRES (obstructive sleep apnea) Code(s): G47.33 - OBSTRUCTIVE SLEEP APNEA (ADULT) (PEDIATRIC) Status: Suspected (3) Afib Code(s): I48.91 - UNSPECIFIED ATRIAL FIBRILLATION Status: Acute Qualifiers: Atrial fibrillation type: paroxysmal Qualified Code(s): I48.0 - Paroxysmal atrial fibrillation (4) COPD (chronic obstructive pulmonary disease) Status: Chronic Qualifiers: COPD type: chronic bronchitis (5) HTN (hypertension) Code(s): I10 - ESSENTIAL (PRIMARY) HYPERTENSION Status: Chronic Qualifiers: Hypertension type: essential hypertension Qualified Code(s): I10 - Essential (primary) hypertension (6) Hepatitis C Code(s): B19.20 - UNSPECIFIED VIRAL HEPATITIS C WITHOUT HEPATIC COMA Status: Chronic Qualifiers: Viral hepatitis chronicity: chronic Hepatic coma status: without hepatic coma Qualified Code(s): B18.2 - Chronic viral hepatitis C (7) Obesity Code(s): E66.9 - OBESITY, UNSPECIFIED Status: Chronic Qualifiers: Obesity classification: adult class 2 (BMI 35 - 39.9) Body mass index: BMI 37.0-37.9 - Plan is on lasix, spironolactone, coreg, imdur er, eliquis, plavix, flomax, tegretol , cymbalta and iron hemostable is awaiting [facility] bed, may dc anytime if they can take him try and taper oxygen off if his ambulatory spo2 >90%, is requiring cpap at night transfer to medical floor
[2020-02-05] MEDS: Citrucel 500 MG TAB PO SCH (20:55)
[2020-02-06] MEDS: Mometasone 200 MCG/Formoterol 5 MCG 120 PUFF INHALER INH SCH ×2 (07:22→18:41)
[2020-02-06] MEDS: Potassium Chloride 10 MEQ TAB PO SCH (08:30)
[2020-02-06] MEDS: Apixaban 5 MG TAB PO SCH ×2 (08:30→20:04)
[2020-02-06] MEDS: Spironolactone 25 MG TAB PO SCH (08:30)
[2020-02-06] MEDS: Carvedilol 6.25 MG TAB PO SCH ×2 (08:30→17:22)
[2020-02-06] MEDS: DULoxetine 30 MG CAP PO SCH (08:30)
[2020-02-06] MEDS: Tamsulosin HCl 0.4 MG CAP PO SCH (08:31)
[2020-02-06] MEDS: Lisinopril 10 MG TAB PO SCH (08:31)
[2020-02-06] MEDS: carBAMazepine 200 MG TAB PO SCH ×2 (08:31→20:04)
[2020-02-06] MEDS: Clopidogrel Bisulfate 75 MG TAB PO SCH (08:31)
[2020-02-06] MEDS: Furosemide 40 MG TAB PO SCH ×2 (08:31→14:25)
[2020-02-06] MEDS: Ferrous Sulfate 325 MG TAB PO SCH (08:31)
--- NOTE | 2020-02-06 13:07 | PDOC.HOSPP ---
- Subjective Encounter Date: 02/06/20 Encounter Time: 09:30 Subjective: no new complaints he is working with [employer] and using cpap at night - Objective Vital Signs & Weight: Vital Signs (12 hours) Temp Pulse Resp BP BP BP Pulse Ox 02/06/20 09:41 02/06/20 08:31 117/71 02/06/20 08:30 117/71 02/06/20 08:27 98.1 F 71 20 148/93 H 93 L 02/06/20 08:00 92 L 02/06/20 05:15 98.3 F 75 18 136/76 96 Pulse Ox Pulse Ox Pulse Ox 02/06/20 09:41 95 93 L 94 L 02/06/20 08:31 02/06/20 08:30 02/06/20 08:27 02/06/20 08:00 02/06/20 05:15 Weight Admit Weight 300 lb 11.2 oz Weight 279 lb 4.8 oz Most Recent Monitor Data Heart Rate from ECG 83 NIBP 131/93 NIBP BP-Mean 105 Respiration from ECG 22 SpO2 97 I&O: 02/05/20 02/06/20 02/07/20 06:59 06:59 06:59 Intake Total 1440 2200 Output Total 800 1900 300 Balance 640 300 -300 Result Diagrams: 02/05/20 06:54 02/05/20 06:54 Hospitalist ROS - Medication Medications: Active Medications Generic Name Dose Route Start Last Admin Trade Name Freq PRN Reason Stop Dose Admin Acetaminophen 650 mg 01/24/20 13:12 02/05/20 03:57 Tylenol PO 650 mg Q6H PRN Administration Fever > 101 Apixaban 5 mg 02/04/20 21:00 02/06/20 08:30 Eliquis PO 5 mg BID MEENA Administration Carbamazepine 200 mg 01/24/20 21:00 02/06/20 08:31 Tegretol PO 200 mg BID MEENA Administration Carvedilol 12.5 mg 02/01/20 17:00 02/06/20 08:30 Coreg PO 12.5 mg BID-WM MEENA Administration Clopidogrel Bisulfate 75 mg 01/25/20 09:00 02/06/20 08:31 Plavix PO 75 mg QAM MEENA Administration Duloxetine HCl 30 mg 01/25/20 09:00 02/06/20 08:30 Cymbalta PO 30 mg QAM MEENA Administration Ferrous Sulfate 325 mg 02/02/20 09:00 02/06/20 08:31 Feosol PO 325 mg Q2D MEENA Administration Furosemide 40 mg 02/03/20 14:00 02/06/20 08:31 Lasix PO 40 mg 0900,1400 MEENA Administration Isosorbide Mononitrate 60 mg 01/25/20 09:00 02/06/20 08:30 Imdur Er PO 60 mg DAILY MEENA Administration Lisinopril 10 mg 02/02/20 18:48 02/06/20 08:31 Zestril PO 10 mg DAILY MEENA Administration Methylcellulose 1,000 mg 01/24/20 21:00 02/05/20 20:55 Citrucel PO 1,000 mg QPM MEENA Administration Mometasone Furoate/Formoterol Fumar 1 puff 02/03/20 18:30 02/06/20 07:22 Dulera 200 Mcg/5 Mcg Inhaler INH 1 puff BID-RT MEENA Administration Pantoprazole Sodium 40 mg 01/24/20 09:00 02/06/20 08:31 Protonix PO 40 mg DAILY MEENA Administration Potassium Chloride 10 meq 02/04/20 08:00 02/06/20 08:30 Klor-Con 10 PO 10 meq QAM-WM MEENA Administration Senna/Docusate Sodium 2 tab 01/25/20 11:46 01/29/20 21:02 Senokot S PO 2 tab BIDPRN PRN Administration Constipation Sodium Chloride 10 ml 01/24/20 03:34 01/25/20 09:14 Normal Saline Pf FS 10 ml PRN PRN Administration RECONSTITUTION Spironolactone 50 mg 02/01/20 08:00 02/06/20 08:30 Aldactone PO 50 mg QAM-WM MEENA Administration Tamsulosin HCl 0.4 mg 02/02/20 09:00 02/06/20 08:31 Flomax PO 0.4 mg DAILY MEENA Administration Triamcinolone Acetonide 1 gm 01/28/20 22:33 01/29/20 21:08 Kenalog 0.1% Cream TOP 1 applic BID PRN Administration Topical Irritations - Exam General Appearance: awake alert Eye: PERRL, anicteric sclera ENT: no oropharyngeal lesions, moist mucosa Neck: supple, no JVD Heart: RRR, no murmur Respiratory: no wheezes, no rales, rhonchi Gastrointestinal: soft, non-tender, non-distended, normal bowel sounds Extremities: no cyanosis, 1+ LE edema Neurological: cranial nerve grossly intact, no focal deficits Psychiatric: normal affect, A&O x 3 Hosp A/P (1) Acute exacerbation of CHF (congestive heart failure) Code(s): I50.9 - HEART FAILURE, UNSPECIFIED Status: Acute Qualifiers: Heart failure type: combined systolic and diastolic Qualified Code(s): I50.43 - Acute on chronic combined systolic (congestive) and diastolic ( congestive) heart failure (2) TRES (obstructive sleep apnea) Code(s): G47.33 - OBSTRUCTIVE SLEEP APNEA (ADULT) (PEDIATRIC) Status: Suspected (3) Afib Code(s): I48.91 - UNSPECIFIED ATRIAL FIBRILLATION Status: Acute Qualifiers: Atrial fibrillation type: paroxysmal Qualified Code(s): I48.0 - Paroxysmal atrial fibrillation (4) COPD (chronic obstructive pulmonary disease) Status: Chronic Qualifiers: COPD type: chronic bronchitis (5) HTN (hypertension) Code(s): I10 - ESSENTIAL (PRIMARY) HYPERTENSION Status: Chronic Qualifiers: Hypertension type: essential hypertension Qualified Code(s): I10 - Essential (primary) hypertension (6) Hepatitis C Code(s): B19.20 - UNSPECIFIED VIRAL HEPATITIS C WITHOUT HEPATIC COMA Status: Chronic Qualifiers: Viral hepatitis chronicity: chronic Hepatic coma status: without hepatic coma Qualified Code(s): B18.2 - Chronic viral hepatitis C (7) Obesity Code(s): E66.9 - OBESITY, UNSPECIFIED Status: Chronic Qualifiers: Obesity classification: adult class 2 (BMI 35 - 39.9) Body mass index: BMI 37.0-37.9 - Plan is on lasix, spironolactone, coreg, imdur er, eliquis, plavix, flomax, tegretol , cymbalta and iron hemostable is awaiting [facility] bed, may dc anytime if they can take him try and taper oxygen off if his ambulatory spo2 >90%, is requiring cpap at night d/w CM
[2020-02-06] MEDS: Citrucel 500 MG TAB PO SCH (20:04)
[2020-02-07] MEDS: Mometasone 200 MCG/Formoterol 5 MCG 120 PUFF INHALER INH SCH ×2 (06:50→18:30)
[2020-02-07] MEDS: Clopidogrel Bisulfate 75 MG TAB PO SCH (08:10)
[2020-02-07] MEDS: DULoxetine 30 MG CAP PO SCH (08:11)
[2020-02-07] MEDS: Lisinopril 10 MG TAB PO SCH (08:11)
[2020-02-07] MEDS: carBAMazepine 200 MG TAB PO SCH ×2 (08:11→20:09)
[2020-02-07] MEDS: Furosemide 40 MG TAB PO SCH ×2 (08:11→15:11)
[2020-02-07] MEDS: Carvedilol 6.25 MG TAB PO SCH ×2 (08:12→17:41)
[2020-02-07] MEDS: Spironolactone 25 MG TAB PO SCH (08:13)
[2020-02-07] MEDS: Potassium Chloride 10 MEQ TAB PO SCH (08:13)
[2020-02-07] MEDS: Apixaban 5 MG TAB PO SCH ×2 (08:13→20:09)
[2020-02-07] MEDS: Tamsulosin HCl 0.4 MG CAP PO SCH (08:14)
[2020-02-07 09:47] LABS: Hemoglobin 10.6 g/dL (14.0-18.0); Platelet Count 243 thou/uL (130-400)
[2020-02-07 09:55] LABS: Calc. Creatinine Clearance 164 mL/min (70-130); Estimated GFR-MDRD Greater than 90
--- NOTE | 2020-02-07 12:15 | PDOC.HOSPP ---
- Subjective Encounter Date: 02/07/20 Encounter Time: 08:00 Subjective: no sob or new complaints feels better - Objective Vital Signs & Weight: Vital Signs (12 hours) Temp Pulse Resp BP BP Pulse Ox 02/07/20 08:12 117/71 02/07/20 08:05 94 L 02/07/20 08:00 98.3 F 75 18 145/92 H 94 L 02/07/20 06:52 7 L 02/07/20 06:50 77 16 97 02/07/20 03:16 73 21 H Weight Admit Weight 300 lb 11.2 oz Weight 281 lb 2.841 oz Most Recent Monitor Data Heart Rate from ECG 83 NIBP 131/93 NIBP BP-Mean 105 Respiration from ECG 22 SpO2 97 I&O: 02/06/20 02/07/20 02/08/20 06:59 06:59 06:59 Intake Total 2200 1550 Output Total 1900 1050 Balance 300 500 Result Diagrams: 02/07/20 09:16 02/07/20 09:16 Hospitalist ROS - Medication Medications: Active Medications Generic Name Dose Route Start Last Admin Trade Name Freq PRN Reason Stop Dose Admin Acetaminophen 650 mg 01/24/20 13:12 02/05/20 03:57 Tylenol PO 650 mg Q6H PRN Administration Fever > 101 Apixaban 5 mg 02/04/20 21:00 02/07/20 08:13 Eliquis PO 5 mg BID MEENA Administration Carbamazepine 200 mg 01/24/20 21:00 02/07/20 08:11 Tegretol PO 200 mg BID MEENA Administration Carvedilol 12.5 mg 02/01/20 17:00 02/07/20 08:12 Coreg PO 12.5 mg BID-WM MEENA Administration Clopidogrel Bisulfate 75 mg 01/25/20 09:00 02/07/20 08:10 Plavix PO 75 mg QAM MEENA Administration Duloxetine HCl 30 mg 01/25/20 09:00 02/07/20 08:11 Cymbalta PO 30 mg QAM MEENA Administration Ferrous Sulfate 325 mg 02/02/20 09:00 02/06/20 08:31 Feosol PO 325 mg Q2D MEENA Administration Furosemide 40 mg 02/03/20 14:00 02/07/20 08:11 Lasix PO 40 mg 0900,1400 MEENA Administration Isosorbide Mononitrate 60 mg 08/12/20 09:00 02/07/20 08:17 Imdur Er PO 60 mg DAILY MEENA Administration Lisinopril 10 mg 02/02/20 18:48 02/07/20 08:11 Zestril PO 10 mg DAILY MEENA Administration Methylcellulose 1,000 mg 01/24/20 21:00 02/06/20 20:04 Citrucel PO 1,000 mg QPM MEENA Administration Mometasone Furoate/Formoterol Fumar 1 puff 02/03/20 18:30 02/07/20 06:50 Dulera 200 Mcg/5 Mcg Inhaler INH 1 puff BID-RT MEENA Administration Pantoprazole Sodium 40 mg 01/24/20 09:00 02/07/20 08:10 Protonix PO 40 mg DAILY MEENA Administration Potassium Chloride 10 meq 02/04/20 08:00 02/07/20 08:13 Klor-Con 10 PO 10 meq QAM-WM MEENA Administration Senna/Docusate Sodium 2 tab 01/25/20 11:46 01/29/20 21:02 Senokot S PO 2 tab BIDPRN PRN Administration Constipation Sodium Chloride 10 ml 01/24/20 03:34 01/25/20 09:14 Normal Saline Pf FS 10 ml PRN PRN Administration RECONSTITUTION Spironolactone 50 mg 02/01/20 08:00 02/07/20 08:13 Aldactone PO 50 mg QAM-WM MEENA Administration Tamsulosin HCl 0.4 mg 02/02/20 09:00 02/07/20 08:14 Flomax PO 0.4 mg DAILY MEENA Administration Triamcinolone Acetonide 1 gm 01/28/20 22:33 01/29/20 21:08 Kenalog 0.1% Cream TOP 1 applic BID PRN Administration Topical Irritations - Exam General Appearance: awake alert Eye: PERRL, anicteric sclera ENT: no oropharyngeal lesions, moist mucosa Neck: supple, no JVD Heart: RRR, no murmur Respiratory: no wheezes, no rales Gastrointestinal: soft, non-tender, non-distended, normal bowel sounds Extremities: no cyanosis, no edema Neurological: cranial nerve grossly intact, no focal deficits Psychiatric: normal affect, A&O x 3 Hosp A/P (1) Acute exacerbation of CHF (congestive heart failure) Code(s): I50.9 - HEART FAILURE, UNSPECIFIED Status: Acute Qualifiers: Heart failure type: combined systolic and diastolic Qualified Code(s): I50.43 - Acute on chronic combined systolic (congestive) and diastolic ( congestive) heart failure (2) TRES (obstructive sleep apnea) Code(s): G47.33 - OBSTRUCTIVE SLEEP APNEA (ADULT) (PEDIATRIC) Status: Suspected (3) Afib Code(s): I48.91 - UNSPECIFIED ATRIAL FIBRILLATION Status: Acute Qualifiers: Atrial fibrillation type: paroxysmal Qualified Code(s): I48.0 - Paroxysmal atrial fibrillation (4) COPD (chronic obstructive pulmonary disease) Status: Chronic Qualifiers: COPD type: chronic bronchitis (5) HTN (hypertension) Code(s): I10 - ESSENTIAL (PRIMARY) HYPERTENSION Status: Chronic Qualifiers: Hypertension type: essential hypertension Qualified Code(s): I10 - Essential (primary) hypertension (6) Hepatitis C Code(s): B19.20 - UNSPECIFIED VIRAL HEPATITIS C WITHOUT HEPATIC COMA Status: Chronic Qualifiers: Viral hepatitis chronicity: chronic Hepatic coma status: without hepatic coma Qualified Code(s): B18.2 - Chronic viral hepatitis C (7) Obesity Code(s): E66.9 - OBESITY, UNSPECIFIED Status: Chronic Qualifiers: Obesity classification: adult class 2 (BMI 35 - 39.9) Body mass index: BMI 37.0-37.9 - Plan is on lasix, spironolactone, coreg, imdur er, eliquis, plavix, flomax, tegretol , cymbalta and iron [facility] may dc anytime if they can take him try and taper oxygen off if his ambulatory spo2 >90%, is requiring cpap at night and O2 by NC when ambulating d/w CM, [facility]
[2020-02-07] MEDS: Citrucel 500 MG TAB PO SCH (20:09)
[2020-02-08] MEDS: Mometasone 200 MCG/Formoterol 5 MCG 120 PUFF INHALER INH SCH ×2 (07:25→18:14)
[2020-02-08 08:26] LABS: Hemoglobin 11.1 g/dL (14.0-18.0); Platelet Count 242 thou/uL (130-400)
[2020-02-08] MEDS: DULoxetine 30 MG CAP PO SCH (08:54)
[2020-02-08] MEDS: carBAMazepine 200 MG TAB PO SCH ×2 (08:54→19:55)
[2020-02-08] MEDS: Clopidogrel Bisulfate 75 MG TAB PO SCH (08:54)
[2020-02-08] MEDS: Furosemide 40 MG TAB PO SCH ×2 (08:54→15:24)
[2020-02-08] MEDS: Spironolactone 25 MG TAB PO SCH (08:55)
[2020-02-08] MEDS: Apixaban 5 MG TAB PO SCH ×2 (08:55→19:55)
[2020-02-08] MEDS: Potassium Chloride 10 MEQ TAB PO SCH (08:55)
[2020-02-08] MEDS: Tamsulosin HCl 0.4 MG CAP PO SCH (08:55)
[2020-02-08] MEDS: Carvedilol 6.25 MG TAB PO SCH ×2 (08:55→16:51)
[2020-02-08] MEDS: Lisinopril 10 MG TAB PO SCH (08:59)
[2020-02-08] MEDS: Ferrous Sulfate 325 MG TAB PO SCH (11:19)
--- NOTE | 2020-02-08 11:49 | PDOC.HOSPP ---
- Subjective Encounter Date: 02/08/20 Encounter Time: 09:40 Subjective: c/o edema in his feet no sob is amb in room per staff is off O2 at rest, uses cpap at night - Objective Vital Signs & Weight: Vital Signs (12 hours) Temp Pulse Resp BP Pulse Ox 02/08/20 08:00 97.8 F 70 18 161/87 H 97 02/08/20 07:25 62 16 96 02/08/20 00:09 68 25 H 92 L Weight Admit Weight 300 lb 11.2 oz Weight 4.5 oz Most Recent Monitor Data Heart Rate from ECG 83 NIBP 131/93 NIBP BP-Mean 105 Respiration from ECG 22 SpO2 97 I&O: 02/07/20 02/08/20 02/09/20 06:59 06:59 06:59 Intake Total 1550 1400 Output Total 1050 400 Balance 500 1000 Result Diagrams: 02/08/20 07:47 02/07/20 09:16 Hospitalist ROS - Medication Medications: Active Medications Generic Name Dose Route Start Last Admin Trade Name Freq PRN Reason Stop Dose Admin Acetaminophen 650 mg 01/24/20 13:12 02/05/20 03:57 Tylenol PO 650 mg Q6H PRN Administration Fever > 101 Apixaban 5 mg 02/04/20 21:00 02/08/20 08:55 Eliquis PO 5 mg BID MEENA Administration Carbamazepine 200 mg 01/24/20 21:00 02/08/20 08:54 Tegretol PO 200 mg BID MEENA Administration Carvedilol 12.5 mg 02/01/20 17:00 02/08/20 08:55 Coreg PO 12.5 mg BID-WM MEENA Administration Clopidogrel Bisulfate 75 mg 01/25/20 09:00 02/08/20 08:54 Plavix PO 75 mg QAM MEENA Administration Duloxetine HCl 30 mg 01/25/20 09:00 02/08/20 08:54 Cymbalta PO 30 mg QAM MEENA Administration Ferrous Sulfate 325 mg 02/02/20 09:00 02/08/20 11:19 Feosol PO 325 mg Q2D MEENA Administration Furosemide 40 mg 02/03/20 14:00 02/08/20 08:54 Lasix PO 40 mg 0900,1400 MEENA Administration Isosorbide Mononitrate 60 mg 01/25/20 09:00 02/08/20 08:54 Imdur Er PO 60 mg DAILY MEENA Administration Lisinopril 10 mg 02/02/20 18:48 02/08/20 08:59 Zestril PO 10 mg DAILY MEENA Administration Methylcellulose 1,000 mg 01/24/20 21:00 02/07/20 20:09 Citrucel PO 1,000 mg QPM MEENA Administration Mometasone Furoate/Formoterol Fumar 1 puff 02/03/20 18:30 02/08/20 07:25 Dulera 200 Mcg/5 Mcg Inhaler INH 1 puff BID-RT MEENA Administration Pantoprazole Sodium 40 mg 01/24/20 09:00 02/08/20 08:55 Protonix PO 40 mg DAILY MEENA Administration Potassium Chloride 10 meq 02/04/20 08:00 02/08/20 08:55 Klor-Con 10 PO 10 meq QAM-WM MEENA Administration Senna/Docusate Sodium 2 tab 01/25/20 11:46 01/29/20 21:02 Senokot S PO 2 tab BIDPRN PRN Administration Constipation Sodium Chloride 10 ml 01/24/20 03:34 01/25/20 09:14 Normal Saline Pf FS 10 ml PRN PRN Administration RECONSTITUTION Spironolactone 50 mg 02/01/20 08:00 02/08/20 08:55 Aldactone PO 50 mg QAM-WM MEENA Administration Tamsulosin HCl 0.4 mg 02/02/20 09:00 02/08/20 08:55 Flomax PO 0.4 mg DAILY MEENA Administration Triamcinolone Acetonide 1 gm 01/28/20 22:33 01/29/20 21:08 Kenalog 0.1% Cream TOP 1 applic BID PRN Administration Topical Irritations - Exam General Appearance: awake alert Eye: PERRL, anicteric sclera ENT: no oropharyngeal lesions, moist mucosa Neck: supple, no JVD Heart: RRR, no murmur Respiratory: no wheezes, no rales Gastrointestinal: soft, non-tender, non-distended, normal bowel sounds Extremities: no cyanosis, 1+ LE edema Neurological: cranial nerve grossly intact, no focal deficits Psychiatric: normal affect, A&O x 3 Hosp A/P (1) Acute exacerbation of CHF (congestive heart failure) Code(s): I50.9 - HEART FAILURE, UNSPECIFIED Status: Acute Qualifiers: Heart failure type: combined systolic and diastolic Qualified Code(s): I50.43 - Acute on chronic combined systolic (congestive) and diastolic ( congestive) heart failure (2) TRES (obstructive sleep apnea) Code(s): G47.33 - OBSTRUCTIVE SLEEP APNEA (ADULT) (PEDIATRIC) Status: Suspected (3) Afib Code(s): I48.91 - UNSPECIFIED ATRIAL FIBRILLATION Status: Acute Qualifiers: Atrial fibrillation type: paroxysmal Qualified Code(s): I48.0 - Paroxysmal atrial fibrillation (4) COPD (chronic obstructive pulmonary disease) Status: Chronic Qualifiers: COPD type: chronic bronchitis (5) HTN (hypertension) Code(s): I10 - ESSENTIAL (PRIMARY) HYPERTENSION Status: Chronic Qualifiers: Hypertension type: essential hypertension Qualified Code(s): I10 - Essential (primary) hypertension (6) Hepatitis C Code(s): B19.20 - UNSPECIFIED VIRAL HEPATITIS C WITHOUT HEPATIC COMA Status: Chronic Qualifiers: Viral hepatitis chronicity: chronic Hepatic coma status: without hepatic coma Qualified Code(s): B18.2 - Chronic viral hepatitis C (7) Obesity Code(s): E66.9 - OBESITY, UNSPECIFIED Status: Chronic Qualifiers: Obesity classification: adult class 2 (BMI 35 - 39.9) Body mass index: BMI 37.0-37.9 - Plan is on lasix, spironolactone, coreg, imdur er, eliquis, plavix, flomax, tegretol , cymbalta and iron hemostable is awaiting [facility] bed, may dc anytime if they can take him try and taper oxygen off if his ambulatory spo2 >90%, is requiring cpap at night and O2 by NC when ambulating d/w CM, still awaiting a [facility] bed thania JUNG
[2020-02-08] MEDS: Ibuprofen 200 MG TAB PO PRN (15:23)
[2020-02-08] MEDS: Citrucel 500 MG TAB PO SCH (19:54)
[2020-02-09] MEDS: Ibuprofen 200 MG TAB PO PRN ×3 (04:05→20:31)
[2020-02-09] MEDS: Mometasone 200 MCG/Formoterol 5 MCG 120 PUFF INHALER INH SCH ×2 (07:05→18:51)
[2020-02-09] MEDS: Furosemide 40 MG TAB PO SCH ×2 (08:40→13:03)
[2020-02-09] MEDS: Carvedilol 6.25 MG TAB PO SCH ×2 (08:40→16:31)
[2020-02-09] MEDS: Clopidogrel Bisulfate 75 MG TAB PO SCH (08:41)
[2020-02-09] MEDS: Tamsulosin HCl 0.4 MG CAP PO SCH (08:41)
[2020-02-09] MEDS: carBAMazepine 200 MG TAB PO SCH ×2 (08:41→20:26)
[2020-02-09] MEDS: Spironolactone 25 MG TAB PO SCH (08:41)
[2020-02-09] MEDS: Potassium Chloride 10 MEQ TAB PO SCH (08:41)
[2020-02-09] MEDS: DULoxetine 30 MG CAP PO SCH (08:41)
[2020-02-09] MEDS: Apixaban 5 MG TAB PO SCH ×2 (08:42→20:26)
[2020-02-09] MEDS: Lisinopril 10 MG TAB PO SCH (08:42)
--- NOTE | 2020-02-09 12:22 | PDOC.HOSPP ---
- Subjective Encounter Date: 02/09/20 Encounter Time: 08:00 Subjective: no sob or - Objective Vital Signs & Weight: Vital Signs (12 hours) Temp Pulse Pulse Resp BP BP Pulse Ox 02/09/20 10:10 79 166/100 H 02/09/20 08:39 183/96 H 96 02/09/20 07:32 98.2 F 72 19 152/102 H 92 L 02/09/20 03:04 69 19 93 L Weight Admit Weight 300 lb 11.2 oz Weight 4.5 oz Most Recent Monitor Data Heart Rate from ECG 83 NIBP 131/93 NIBP BP-Mean 105 Respiration from ECG 22 SpO2 97 I&O: 02/08/20 02/09/20 02/10/20 06:59 06:59 06:59 Intake Total 1400 1250 Output Total 400 1450 Balance 1000 -200 Result Diagrams: 02/08/20 07:47 02/07/20 09:16 Hospitalist ROS - Medication Medications: Active Medications Generic Name Dose Route Start Last Admin Trade Name Freq PRN Reason Stop Dose Admin Acetaminophen 650 mg 01/24/20 13:12 02/05/20 03:57 Tylenol PO 650 mg Q6H PRN Administration Fever > 101 Apixaban 5 mg 02/04/20 21:00 02/09/20 08:42 Eliquis PO 5 mg BID MEENA Administration Carbamazepine 200 mg 01/24/20 21:00 02/09/20 08:41 Tegretol PO 200 mg BID MEENA Administration Carvedilol 12.5 mg 02/01/20 17:00 02/09/20 08:40 Coreg PO 12.5 mg BID-WM MEENA Administration Clopidogrel Bisulfate 75 mg 01/25/20 09:00 02/09/20 08:41 Plavix PO 75 mg QAM MEENA Administration Duloxetine HCl 30 mg 01/25/20 09:00 02/09/20 08:41 Cymbalta PO 30 mg QAM MEENA Administration Ferrous Sulfate 325 mg 02/02/20 09:00 02/08/20 11:19 Feosol PO 325 mg Q2D MEENA Administration Furosemide 40 mg 02/03/20 14:00 02/09/20 08:40 Lasix PO 40 mg 0900,1400 MEENA Administration Ibuprofen 400 mg 02/08/20 11:29 02/09/20 04:05 Motrin PO 400 mg Q8H PRN Administration Moderate Pain (4-6) Isosorbide Mononitrate 60 mg 01/25/20 09:00 02/09/20 08:42 Imdur Er PO 60 mg DAILY MEENA Administration Lisinopril 10 mg 02/02/20 18:48 02/09/20 08:42 Zestril PO 10 mg DAILY MEENA Administration Methylcellulose 1,000 mg 01/24/20 21:00 02/08/20 19:54 Citrucel PO 1,000 mg QPM MEENA Administration Mometasone Furoate/Formoterol Fumar 1 puff 02/03/20 18:30 02/09/20 07:05 Dulera 200 Mcg/5 Mcg Inhaler INH 1 puff BID-RT MEENA Administration Pantoprazole Sodium 40 mg 01/24/20 09:00 02/09/20 08:42 Protonix PO 40 mg DAILY MEENA Administration Potassium Chloride 10 meq 02/04/20 08:00 02/09/20 08:41 Klor-Con 10 PO 10 meq QAM-WM MEENA Administration Senna/Docusate Sodium 2 tab 01/25/20 11:46 01/29/20 21:02 Senokot S PO 2 tab BIDPRN PRN Administration Constipation Sodium Chloride 10 ml 01/24/20 03:34 01/25/20 09:14 Normal Saline Pf FS 10 ml PRN PRN Administration RECONSTITUTION Spironolactone 50 mg 02/01/20 08:00 02/09/20 08:41 Aldactone PO 50 mg QAM-WM MEENA Administration Tamsulosin HCl 0.4 mg 02/02/20 09:00 02/09/20 08:41 Flomax PO 0.4 mg DAILY MEENA Administration Triamcinolone Acetonide 1 gm 01/28/20 22:33 01/29/20 21:08 Kenalog 0.1% Cream TOP 1 applic BID PRN Administration Topical Irritations Hosp A/P (1) Acute exacerbation of CHF (congestive heart failure) Code(s): I50.9 - HEART FAILURE, UNSPECIFIED Status: Acute Qualifiers: Heart failure type: combined systolic and diastolic Qualified Code(s): I50.43 - Acute on chronic combined systolic (congestive) and diastolic ( congestive) heart failure (2) TRES (obstructive sleep apnea) Code(s): G47.33 - OBSTRUCTIVE SLEEP APNEA (ADULT) (PEDIATRIC) Status: Suspected (3) Afib Code(s): I48.91 - UNSPECIFIED ATRIAL FIBRILLATION Status: Acute Qualifiers: Atrial fibrillation type: paroxysmal Qualified Code(s): I48.0 - Paroxysmal atrial fibrillation (4) COPD (chronic obstructive pulmonary disease) Status: Chronic Qualifiers: COPD type: chronic bronchitis (5) HTN (hypertension) Code(s): I10 - ESSENTIAL (PRIMARY) HYPERTENSION Status: Chronic Qualifiers: Hypertension type: essential hypertension Qualified Code(s): I10 - Essential (primary) hypertension (6) Hepatitis C Code(s): B19.20 - UNSPECIFIED VIRAL HEPATITIS C WITHOUT HEPATIC COMA Status: Chronic Qualifiers: Viral hepatitis chronicity: chronic Hepatic coma status: without hepatic coma Qualified Code(s): B18.2 - Chronic viral hepatitis C (7) Obesity Code(s): E66.9 - OBESITY, UNSPECIFIED Status: Chronic Qualifiers: Obesity classification: adult class 2 (BMI 35 - 39.9) Body mass index: BMI 37.0-37.9 - Plan is on lasix, spironolactone, coreg, imdur er, eliquis, plavix, flomax, tegretol , cymbalta and iron [facility] may dc anytime if they can take him try and taper oxygen off if his ambulatory spo2 >90%, is requiring cpap at night and O2 by NC when ambulating d/w CM, [facility] thania JUNG
[2020-02-09] MEDS: Citrucel 500 MG TAB PO SCH (20:27)
[2020-02-10] MEDS: Mometasone 200 MCG/Formoterol 5 MCG 120 PUFF INHALER INH SCH ×2 (07:41→18:36)
[2020-02-10] MEDS: Furosemide 40 MG TAB PO SCH ×2 (08:53→14:36)
[2020-02-10] MEDS: DULoxetine 30 MG CAP PO SCH (08:53)
[2020-02-10] MEDS: Carvedilol 6.25 MG TAB PO SCH ×2 (08:53→17:44)
[2020-02-10] MEDS: Ibuprofen 200 MG TAB PO PRN ×2 (08:53→21:30)
[2020-02-10] MEDS: Spironolactone 25 MG TAB PO SCH (08:54)
[2020-02-10] MEDS: carBAMazepine 200 MG TAB PO SCH ×2 (08:55→20:57)
[2020-02-10] MEDS: Lisinopril 10 MG TAB PO SCH (08:55)
[2020-02-10] MEDS: Potassium Chloride 10 MEQ TAB PO SCH (08:55)
[2020-02-10] MEDS: Clopidogrel Bisulfate 75 MG TAB PO SCH (08:55)
[2020-02-10] MEDS: Tamsulosin HCl 0.4 MG CAP PO SCH (08:55)
[2020-02-10] MEDS: Apixaban 5 MG TAB PO SCH ×2 (08:55→20:57)
[2020-02-10] MEDS: Ferrous Sulfate 325 MG TAB PO SCH (08:59)
[2020-02-10 10:05] LABS: Hemoglobin 10.9 g/dL (14.0-18.0); Platelet Count 251 thou/uL (130-400)
--- NOTE | 2020-02-10 12:54 | PDOC.HOSPP ---
- Subjective Encounter Date: 02/10/20 Encounter Time: 10:40 Subjective: no sob feels better - Objective Vital Signs & Weight: Vital Signs (12 hours) Temp Pulse Resp BP BP Pulse Ox Pulse Ox 02/10/20 10:55 92 L 02/10/20 08:55 159/104 H 02/10/20 08:53 159/104 H 02/10/20 07:57 97.9 F 74 20 159/104 H 94 L 02/10/20 02:11 80 20 95 Pulse Ox Pulse Ox 02/10/20 10:55 96 97 02/10/20 08:55 02/10/20 08:53 02/10/20 07:57 02/10/20 02:11 Weight Admit Weight 300 lb 11.2 oz Weight 285 lb 8 oz Most Recent Monitor Data Heart Rate from ECG 83 NIBP 131/93 NIBP BP-Mean 105 Respiration from ECG 22 SpO2 97 I&O: 02/09/20 02/10/20 02/11/20 06:59 06:59 06:59 Intake Total 1250 1020 Output Total 1450 950 Balance -200 70 Result Diagrams: 02/10/20 09:52 02/10/20 09:52 Hospitalist ROS - Medication Medications: Active Medications Generic Name Dose Route Start Last Admin Trade Name Freq PRN Reason Stop Dose Admin Acetaminophen 650 mg 01/24/20 13:12 02/05/20 03:57 Tylenol PO 650 mg Q6H PRN Administration Fever > 101 Apixaban 5 mg 02/04/20 21:00 02/10/20 08:55 Eliquis PO 5 mg BID MEENA Administration Carbamazepine 200 mg 01/24/20 21:00 02/10/20 08:55 Tegretol PO 200 mg BID MEENA Administration Carvedilol 12.5 mg 02/01/20 17:00 02/10/20 08:53 Coreg PO 12.5 mg BID-WM MEENA Administration Clopidogrel Bisulfate 75 mg 01/25/20 09:00 02/10/20 08:55 Plavix PO 75 mg QAM MEENA Administration Duloxetine HCl 30 mg 01/25/20 09:00 02/10/20 08:53 Cymbalta PO 30 mg QAM MEENA Administration Ferrous Sulfate 325 mg 02/02/20 09:00 02/10/20 08:59 Feosol PO 325 mg Q2D MEENA Administration Furosemide 40 mg 02/03/20 14:00 02/10/20 08:53 Lasix PO 40 mg 0900,1400 MEENA Administration Ibuprofen 400 mg 02/08/20 11:29 02/10/20 08:53 Motrin PO 400 mg Q8H PRN Administration Moderate Pain (4-6) Isosorbide Mononitrate 60 mg 01/25/20 09:00 02/10/20 08:54 Imdur Er PO 60 mg DAILY MEENA Administration Lisinopril 10 mg 02/02/20 18:48 02/10/20 08:55 Zestril PO 10 mg DAILY MEENA Administration Methylcellulose 1,000 mg 01/24/20 21:00 02/09/20 20:27 Citrucel PO 1,000 mg QPM MEENA Administration Mometasone Furoate/Formoterol Fumar 1 puff 02/03/20 18:30 02/10/20 07:41 Dulera 200 Mcg/5 Mcg Inhaler INH 1 puff BID-RT MEENA Administration Pantoprazole Sodium 40 mg 01/24/20 09:00 02/10/20 08:55 Protonix PO 40 mg DAILY MEENA Administration Potassium Chloride 10 meq 02/04/20 08:00 02/10/20 08:55 Klor-Con 10 PO 10 meq QAM-WM MEENA Administration Senna/Docusate Sodium 2 tab 01/25/20 11:46 01/29/20 21:02 Senokot S PO 2 tab BIDPRN PRN Administration Constipation Sodium Chloride 10 ml 01/24/20 03:34 01/25/20 09:14 Normal Saline Pf FS 10 ml PRN PRN Administration RECONSTITUTION Spironolactone 50 mg 02/01/20 08:00 02/10/20 08:54 Aldactone PO 50 mg QAM-WM MEENA Administration Tamsulosin HCl 0.4 mg 02/02/20 09:00 02/10/20 08:55 Flomax PO 0.4 mg DAILY MEENA Administration Triamcinolone Acetonide 1 gm 01/28/20 22:33 01/29/20 21:08 Kenalog 0.1% Cream TOP 1 applic BID PRN Administration Topical Irritations - Exam General Appearance: awake alert Eye: PERRL, anicteric sclera ENT: no oropharyngeal lesions, moist mucosa Neck: supple, no JVD Heart: RRR, no murmur Respiratory: no wheezes, no rales, rhonchi Gastrointestinal: soft, non-tender, non-distended, normal bowel sounds Extremities: no cyanosis, 1+ LE edema Neurological: cranial nerve grossly intact, no focal deficits Psychiatric: normal affect, A&O x 3 Hosp A/P (1) Acute exacerbation of CHF (congestive heart failure) Code(s): I50.9 - HEART FAILURE, UNSPECIFIED Status: Acute Qualifiers: Heart failure type: combined systolic and diastolic Qualified Code(s): I50.43 - Acute on chronic combined systolic (congestive) and diastolic ( congestive) heart failure (2) TRES (obstructive sleep apnea) Code(s): G47.33 - OBSTRUCTIVE SLEEP APNEA (ADULT) (PEDIATRIC) Status: Suspected (3) Afib Code(s): I48.91 - UNSPECIFIED ATRIAL FIBRILLATION Status: Acute Qualifiers: Atrial fibrillation type: paroxysmal Qualified Code(s): I48.0 - Paroxysmal atrial fibrillation (4) COPD (chronic obstructive pulmonary disease) Status: Chronic Qualifiers: COPD type: chronic bronchitis (5) HTN (hypertension) Code(s): I10 - ESSENTIAL (PRIMARY) HYPERTENSION Status: Chronic Qualifiers: Hypertension type: essential hypertension Qualified Code(s): I10 - Essential (primary) hypertension (6) Hepatitis C Code(s): B19.20 - UNSPECIFIED VIRAL HEPATITIS C WITHOUT HEPATIC COMA Status: Chronic Qualifiers: Viral hepatitis chronicity: chronic Hepatic coma status: without hepatic coma Qualified Code(s): B18.2 - Chronic viral hepatitis C (7) Obesity Code(s): E66.9 - OBESITY, UNSPECIFIED Status: Chronic Qualifiers: Obesity classification: adult class 2 (BMI 35 - 39.9) Body mass index: BMI 37.0-37.9 - Plan is on lasix, spironolactone, coreg, imdur er, eliquis, plavix, flomax, tegretol , cymbalta and iron hemostable is awaiting [facility] bed, may dc anytime if they can take him try and taper oxygen off if his ambulatory spo2 >90%, is requiring cpap at night and O2 by NC when ambulating d/w CM, still awaiting a [facility] bed thania JUNG
[2020-02-10] MEDS: Citrucel 500 MG TAB PO SCH (21:30)
[2020-02-11] MEDS: Mometasone 200 MCG/Formoterol 5 MCG 120 PUFF INHALER INH SCH ×2 (08:35→19:36)
[2020-02-11] MEDS: Clopidogrel Bisulfate 75 MG TAB PO SCH (09:06)
[2020-02-11] MEDS: Ibuprofen 200 MG TAB PO PRN (09:06)
[2020-02-11] MEDS: DULoxetine 30 MG CAP PO SCH (09:06)
[2020-02-11] MEDS: carBAMazepine 200 MG TAB PO SCH ×2 (09:06→20:37)
[2020-02-11] MEDS: Potassium Chloride 10 MEQ TAB PO SCH (09:06)
[2020-02-11] MEDS: Lisinopril 10 MG TAB PO SCH (09:07)
[2020-02-11] MEDS: Carvedilol 6.25 MG TAB PO SCH ×2 (09:07→17:06)
[2020-02-11] MEDS: Tamsulosin HCl 0.4 MG CAP PO SCH (09:07)
[2020-02-11] MEDS: Apixaban 5 MG TAB PO SCH ×2 (09:07→20:37)
[2020-02-11] MEDS: Spironolactone 25 MG TAB PO SCH (09:07)
[2020-02-11] MEDS: Furosemide 40 MG TAB PO SCH ×2 (09:07→14:10)
--- NOTE | 2020-02-11 11:20 | PDOC.HOSPP ---
- Subjective Encounter Date: 02/11/20 Encounter Time: 08:45 Subjective: no new complaints - Objective Vital Signs & Weight: Vital Signs (12 hours) Temp Pulse Resp BP BP Pulse Ox 02/11/20 09:07 155/114 H 02/11/20 07:37 98.4 F 75 20 155/114 H 93 L Weight Admit Weight 300 lb 11.2 oz Weight 287 lb 12.8 oz Most Recent Monitor Data Heart Rate from ECG 83 NIBP 131/93 NIBP BP-Mean 105 Respiration from ECG 22 SpO2 97 I&O: 02/10/20 02/11/20 02/12/20 06:59 06:59 06:59 Intake Total 1020 620 Output Total 950 300 120 Balance 70 320 -120 Result Diagrams: 02/10/20 09:52 02/10/20 09:52 Hospitalist ROS - Medication Medications: Active Medications Generic Name Dose Route Start Last Admin Trade Name Freq PRN Reason Stop Dose Admin Acetaminophen 650 mg 01/24/20 13:12 02/05/20 03:57 Tylenol PO 650 mg Q6H PRN Administration Fever > 101 Apixaban 5 mg 02/04/20 21:00 02/11/20 09:07 Eliquis PO 5 mg BID MEENA Administration Carbamazepine 200 mg 01/24/20 21:00 02/11/20 09:06 Tegretol PO 200 mg BID MEENA Administration Carvedilol 12.5 mg 02/01/20 17:00 02/11/20 09:07 Coreg PO 12.5 mg BID-WM MEENA Administration Clopidogrel Bisulfate 75 mg 01/25/20 09:00 02/11/20 09:06 Plavix PO 75 mg QAM MEENA Administration Duloxetine HCl 30 mg 01/25/20 09:00 02/11/20 09:06 Cymbalta PO 30 mg QAM MEENA Administration Ferrous Sulfate 325 mg 02/02/20 09:00 02/10/20 08:59 Feosol PO 325 mg Q2D MEENA Administration Furosemide 40 mg 02/03/20 14:00 02/11/20 09:07 Lasix PO 40 mg 0900,1400 MEENA Administration Ibuprofen 400 mg 02/08/20 11:29 02/11/20 09:06 Motrin PO 400 mg Q8H PRN Administration Moderate Pain (4-6) Isosorbide Mononitrate 60 mg 01/25/20 09:00 02/11/20 09:06 Imdur Er PO 60 mg DAILY MEENA Administration Lisinopril 10 mg 02/02/20 18:48 02/11/20 09:07 Zestril PO 10 mg DAILY MEENA Administration Methylcellulose 1,000 mg 01/24/20 21:00 02/10/20 21:30 Citrucel PO 1,000 mg QPM MEENA Administration Mometasone Furoate/Formoterol Fumar 1 puff 02/03/20 18:30 02/11/20 08:35 Dulera 200 Mcg/5 Mcg Inhaler INH 1 puff BID-RT MEENA Administration Pantoprazole Sodium 40 mg 01/24/20 09:00 02/11/20 09:06 Protonix PO 40 mg DAILY MEENA Administration Potassium Chloride 10 meq 02/04/20 08:00 02/11/20 09:06 Klor-Con 10 PO 10 meq QAM-WM MEENA Administration Senna/Docusate Sodium 2 tab 01/25/20 11:46 01/29/20 21:02 Senokot S PO 2 tab BIDPRN PRN Administration Constipation Sodium Chloride 10 ml 01/24/20 03:34 01/25/20 09:14 Normal Saline Pf FS 10 ml PRN PRN Administration RECONSTITUTION Spironolactone 50 mg 02/01/20 08:00 02/11/20 09:07 Aldactone PO 50 mg QAM-WM MEENA Administration Tamsulosin HCl 0.4 mg 02/02/20 09:00 02/11/20 09:07 Flomax PO 0.4 mg DAILY MEENA Administration Triamcinolone Acetonide 1 gm 01/28/20 22:33 01/29/20 21:08 Kenalog 0.1% Cream TOP 1 applic BID PRN Administration Topical Irritations - Exam General Appearance: awake alert Eye: PERRL, anicteric sclera ENT: no oropharyngeal lesions, moist mucosa Neck: supple, no JVD Heart: RRR, no murmur Respiratory: no wheezes, no rales Gastrointestinal: soft, non-tender, non-distended, normal bowel sounds Extremities: no cyanosis, 1+ LE edema Neurological: cranial nerve grossly intact, no focal deficits Psychiatric: normal affect, A&O x 3 Hosp A/P (1) Acute exacerbation of CHF (congestive heart failure) Code(s): I50.9 - HEART FAILURE, UNSPECIFIED Status: Acute Qualifiers: Heart failure type: combined systolic and diastolic Qualified Code(s): I50.43 - Acute on chronic combined systolic (congestive) and diastolic ( congestive) heart failure (2) TRES (obstructive sleep apnea) Code(s): G47.33 - OBSTRUCTIVE SLEEP APNEA (ADULT) (PEDIATRIC) Status: Suspected (3) Afib Code(s): I48.91 - UNSPECIFIED ATRIAL FIBRILLATION Status: Acute Qualifiers: Atrial fibrillation type: paroxysmal Qualified Code(s): I48.0 - Paroxysmal atrial fibrillation (4) COPD (chronic obstructive pulmonary disease) Status: Chronic Qualifiers: COPD type: chronic bronchitis (5) HTN (hypertension) Code(s): I10 - ESSENTIAL (PRIMARY) HYPERTENSION Status: Chronic Qualifiers: Hypertension type: essential hypertension Qualified Code(s): I10 - Essential (primary) hypertension (6) Hepatitis C Code(s): B19.20 - UNSPECIFIED VIRAL HEPATITIS C WITHOUT HEPATIC COMA Status: Chronic Qualifiers: Viral hepatitis chronicity: chronic Hepatic coma status: without hepatic coma Qualified Code(s): B18.2 - Chronic viral hepatitis C (7) Obesity Code(s): E66.9 - OBESITY, UNSPECIFIED Status: Chronic Qualifiers: Obesity classification: adult class 2 (BMI 35 - 39.9) Body mass index: BMI 37.0-37.9 - Plan is on lasix, spironolactone, coreg, imdur er, eliquis, plavix, flomax, tegretol , cymbalta and iron hemostable is awaiting [facility] bed, may dc anytime if they can take him is requiring cpap at night and O2 by [place] when ambulating not at rest. d/w CM, still awaiting a [facility] bed thania JUNG
[2020-02-11] MEDS: traMADol HCl 50 MG TAB PO PRN (17:06)
[2020-02-11] MEDS: Citrucel 500 MG TAB PO SCH (20:37)
[2020-02-12] MEDS: traMADol HCl 50 MG TAB PO PRN (04:29)
[2020-02-12] MEDS: Lisinopril 10 MG TAB PO SCH (06:05)
[2020-02-12] MEDS: Mometasone 200 MCG/Formoterol 5 MCG 120 PUFF INHALER INH SCH ×2 (07:26→23:19)
[2020-02-12] MEDS: DULoxetine 30 MG CAP PO SCH (08:38)
[2020-02-12] MEDS: Spironolactone 25 MG TAB PO SCH (08:39)
[2020-02-12] MEDS: Tamsulosin HCl 0.4 MG CAP PO SCH (08:39)
[2020-02-12] MEDS: Furosemide 40 MG TAB PO SCH ×2 (08:39→14:42)
[2020-02-12] MEDS: Potassium Chloride 10 MEQ TAB PO SCH (08:39)
[2020-02-12] MEDS: carBAMazepine 200 MG TAB PO SCH ×2 (08:40→20:38)
[2020-02-12] MEDS: Carvedilol 6.25 MG TAB PO SCH ×2 (08:40→17:13)
[2020-02-12] MEDS: Apixaban 5 MG TAB PO SCH ×2 (08:40→20:38)
[2020-02-12] MEDS: Clopidogrel Bisulfate 75 MG TAB PO SCH (08:40)
[2020-02-12] MEDS: Ferrous Sulfate 325 MG TAB PO SCH (08:44)
--- NOTE | 2020-02-12 11:32 | PDOC.HOSPP ---
- Subjective Encounter Date: 02/12/20 Encounter Time: 08:45 Subjective: no new complaints - Objective Vital Signs & Weight: Vital Signs (12 hours) Temp Pulse Resp BP BP Pulse Ox 02/12/20 08:40 167/116 H 02/12/20 08:00 97 02/12/20 07:56 97.8 F 68 20 167/116 H 97 02/12/20 06:05 186/109 H 02/12/20 04:36 97.8 F 66 16 161/97 H 94 L 02/12/20 00:53 69 22 H 99 Weight Admit Weight 300 lb 11.2 oz Weight 283 lb 7 oz Most Recent Monitor Data Heart Rate from ECG 83 NIBP 131/93 NIBP BP-Mean 105 Respiration from ECG 22 SpO2 97 I&O: 02/11/20 02/12/20 02/13/20 06:59 06:59 06:59 Intake Total 620 1240 Output Total 300 1695 Balance 320 -455 Result Diagrams: 02/10/20 09:52 02/10/20 09:52 Hospitalist ROS - Medication Medications: Active Medications Generic Name Dose Route Start Last Admin Trade Name Freq PRN Reason Stop Dose Admin Acetaminophen 650 mg 01/24/20 13:12 02/05/20 03:57 Tylenol PO 650 mg Q6H PRN Administration Fever > 101 Apixaban 5 mg 02/04/20 21:00 02/12/20 08:40 Eliquis PO 5 mg BID MEENA Administration Carbamazepine 200 mg 01/24/20 21:00 02/12/20 08:40 Tegretol PO 200 mg BID MEENA Administration Carvedilol 12.5 mg 02/01/20 17:00 02/12/20 08:40 Coreg PO 12.5 mg BID-WM MEENA Administration Clopidogrel Bisulfate 75 mg 01/25/20 09:00 02/12/20 08:40 Plavix PO 75 mg QAM MEENA Administration Duloxetine HCl 30 mg 01/25/20 09:00 02/12/20 08:38 Cymbalta PO 30 mg QAM MEENA Administration Ferrous Sulfate 325 mg 02/02/20 09:00 02/12/20 08:44 Feosol PO 325 mg Q2D MEENA Administration Furosemide 40 mg 02/03/20 14:00 02/12/20 08:39 Lasix PO 40 mg 0900,1400 MEENA Administration Ibuprofen 400 mg 02/08/20 11:29 02/11/20 09:06 Motrin PO 400 mg Q8H PRN Administration Moderate Pain (4-6) Isosorbide Mononitrate 60 mg 01/25/20 09:00 02/12/20 08:38 Imdur Er PO 60 mg DAILY MEENA Administration Lisinopril 10 mg 02/02/20 18:48 02/12/20 06:05 Zestril PO 10 mg DAILY MEENA Administration Methylcellulose 1,000 mg 01/24/20 21:00 02/11/20 20:37 Citrucel PO 1,000 mg QPM MEENA Administration Mometasone Furoate/Formoterol Fumar 1 puff 02/03/20 18:30 02/12/20 07:26 Dulera 200 Mcg/5 Mcg Inhaler INH 1 puff BID-RT MEENA Administration Pantoprazole Sodium 40 mg 01/24/20 09:00 02/12/20 08:39 Protonix PO 40 mg DAILY MEENA Administration Potassium Chloride 10 meq 02/04/20 08:00 02/12/20 08:39 Klor-Con 10 PO 10 meq QAM-WM MEENA Administration Senna/Docusate Sodium 2 tab 01/25/20 11:46 01/29/20 21:02 Senokot S PO 2 tab BIDPRN PRN Administration Constipation Sodium Chloride 10 ml 01/24/20 03:34 01/25/20 09:14 Normal Saline Pf FS 10 ml PRN PRN Administration RECONSTITUTION Spironolactone 50 mg 02/01/20 08:00 02/12/20 08:39 Aldactone PO 50 mg QAM-WM MEENA Administration Tamsulosin HCl 0.4 mg 02/02/20 09:00 02/12/20 08:39 Flomax PO 0.4 mg DAILY MEENA Administration Tramadol HCl 50 mg 02/11/20 15:30 02/12/20 04:29 Ultram PO 50 mg Q6H PRN Administration Severe Pain (7-10) Triamcinolone Acetonide 1 gm 01/28/20 22:33 01/29/20 21:08 Kenalog 0.1% Cream TOP 1 applic BID PRN Administration Topical Irritations - Exam General Appearance: awake alert Eye: PERRL, anicteric sclera ENT: no oropharyngeal lesions, moist mucosa Neck: supple, no JVD Heart: RRR, no murmur Respiratory: no wheezes, no rales Gastrointestinal: soft, non-tender, non-distended, normal bowel sounds Extremities: no cyanosis, 1+ LE edema Neurological: cranial nerve grossly intact, no focal deficits Psychiatric: A&O x 3 Hosp A/P (1) Acute exacerbation of CHF (congestive heart failure) Code(s): I50.9 - HEART FAILURE, UNSPECIFIED Status: Acute Qualifiers: Heart failure type: combined systolic and diastolic Qualified Code(s): I50.43 - Acute on chronic combined systolic (congestive) and diastolic ( congestive) heart failure (2) TRES (obstructive sleep apnea) Code(s): G47.33 - OBSTRUCTIVE SLEEP APNEA (ADULT) (PEDIATRIC) Status: Suspected (3) Afib Code(s): I48.91 - UNSPECIFIED ATRIAL FIBRILLATION Status: Acute Qualifiers: Atrial fibrillation type: paroxysmal Qualified Code(s): I48.0 - Paroxysmal atrial fibrillation (4) COPD (chronic obstructive pulmonary disease) Status: Chronic Qualifiers: COPD type: chronic bronchitis (5) HTN (hypertension) Code(s): I10 - ESSENTIAL (PRIMARY) HYPERTENSION Status: Chronic Qualifiers: Hypertension type: essential hypertension Qualified Code(s): I10 - Essential (primary) hypertension (6) Hepatitis C Code(s): B19.20 - UNSPECIFIED VIRAL HEPATITIS C WITHOUT HEPATIC COMA Status: Chronic Qualifiers: Viral hepatitis chronicity: chronic Hepatic coma status: without hepatic coma Qualified Code(s): B18.2 - Chronic viral hepatitis C (7) Obesity Code(s): E66.9 - OBESITY, UNSPECIFIED Status: Chronic Qualifiers: Obesity classification: adult class 2 (BMI 35 - 39.9) Body mass index: BMI 37.0-37.9 - Plan is on lasix, spironolactone, coreg, imdur er, eliquis, plavix, flomax, tegretol , cymbalta and iron hemostable is awaiting [facility] bed, may dc anytime if they can take him is requiring cpap at night and O2 by [place] when ambulating not at rest. d/w CM, still awaiting a [facility] bed thania hose to ERICH sparingly use ultram (he wont be getting that in [facility])
[2020-02-12] MEDS: Citrucel 500 MG TAB PO SCH (20:38)
[2020-02-13] MEDS: Mometasone 200 MCG/Formoterol 5 MCG 120 PUFF INHALER INH SCH ×2 (07:48→18:20)
[2020-02-13 09:02] LABS: Hemoglobin 10.6 g/dL (14.0-18.0); Platelet Count 282 thou/uL (130-400)
[2020-02-13 09:22] LABS: Calc. Creatinine Clearance 159 mL/min (70-130); Estimated GFR-MDRD Greater than 90
[2020-02-13] MEDS: Carvedilol 6.25 MG TAB PO SCH ×2 (09:53→16:57)
[2020-02-13] MEDS: carBAMazepine 200 MG TAB PO SCH ×2 (09:57→20:33)
[2020-02-13] MEDS: Spironolactone 25 MG TAB PO SCH (09:57)
[2020-02-13] MEDS: Potassium Chloride 10 MEQ TAB PO SCH (09:58)
[2020-02-13] MEDS: Lisinopril 10 MG TAB PO SCH (09:58)
[2020-02-13] MEDS: Apixaban 5 MG TAB PO SCH ×2 (09:58→22:51)
[2020-02-13] MEDS: Tamsulosin HCl 0.4 MG CAP PO SCH (09:59)
[2020-02-13] MEDS: DULoxetine 30 MG CAP PO SCH (09:59)
[2020-02-13] MEDS: Clopidogrel Bisulfate 75 MG TAB PO SCH (09:59)
[2020-02-13] MEDS: Furosemide 40 MG TAB PO SCH ×2 (09:59→14:06)
[2020-02-13] MEDS: traMADol HCl 50 MG TAB PO PRN (10:02)
--- NOTE | 2020-02-13 11:46 | PDOC.HOSPP ---
- Subjective Encounter Date: 02/13/20 Encounter Time: 07:00 Subjective: no sob or palp feels good - Objective Vital Signs & Weight: Vital Signs (12 hours) Temp Pulse Resp BP BP Pulse Ox 02/13/20 09:58 165/128 H 02/13/20 09:53 165/128 H 02/13/20 08:00 97.4 F L 67 20 165/128 H 93 L Weight Admit Weight 300 lb 11.2 oz Weight 283 lb 7 oz Most Recent Monitor Data Heart Rate from ECG 83 NIBP 131/93 NIBP BP-Mean 105 Respiration from ECG 22 SpO2 97 I&O: 02/12/20 02/13/20 02/14/20 06:59 06:59 06:59 Intake Total 1240 1240 Output Total 1695 525 Balance -455 715 Result Diagrams: 02/13/20 08:44 02/13/20 08:44 Hospitalist ROS - Medication Medications: Active Medications Generic Name Dose Route Start Last Admin Trade Name Freq PRN Reason Stop Dose Admin Acetaminophen 650 mg 01/24/20 13:12 02/05/20 03:57 Tylenol PO 650 mg Q6H PRN Administration Fever > 101 Apixaban 5 mg 02/04/20 21:00 02/13/20 09:58 Eliquis PO 5 mg BID MEENA Administration Carbamazepine 200 mg 01/24/20 21:00 02/13/20 09:57 Tegretol PO 200 mg BID MEENA Administration Carvedilol 12.5 mg 02/01/20 17:00 02/13/20 09:53 Coreg PO 12.5 mg BID-WM MEENA Administration Clopidogrel Bisulfate 75 mg 01/25/20 09:00 02/13/20 09:59 Plavix PO 75 mg QAM MEENA Administration Duloxetine HCl 30 mg 01/25/20 09:00 02/13/20 09:59 Cymbalta PO 30 mg QAM MEENA Administration Ferrous Sulfate 325 mg 02/02/20 09:00 02/12/20 08:44 Feosol PO 325 mg Q2D MEENA Administration Furosemide 40 mg 02/03/20 14:00 02/13/20 09:59 Lasix PO 40 mg 0900,1400 MEENA Administration Ibuprofen 400 mg 02/08/20 11:29 02/11/20 09:06 Motrin PO 400 mg Q8H PRN Administration Moderate Pain (4-6) Isosorbide Mononitrate 60 mg 01/25/20 09:00 02/13/20 09:54 Imdur Er PO 60 mg DAILY MEENA Administration Lisinopril 10 mg 02/02/20 18:48 02/13/20 09:58 Zestril PO 10 mg DAILY MEENA Administration Methylcellulose 1,000 mg 01/24/20 21:00 02/12/20 20:38 Citrucel PO 1,000 mg QPM MEENA Administration Mometasone Furoate/Formoterol Fumar 1 puff 02/03/20 18:30 02/13/20 07:48 Dulera 200 Mcg/5 Mcg Inhaler INH Not Given BID-RT [facility] Pantoprazole Sodium 40 mg 01/24/20 09:00 02/13/20 09:59 Protonix PO 40 mg DAILY MEENA Administration Potassium Chloride 10 meq 02/04/20 08:00 02/13/20 09:58 Klor-Con 10 PO 10 meq QAM-WM MEENA Administration Senna/Docusate Sodium 2 tab 01/25/20 11:46 01/29/20 21:02 Senokot S PO 2 tab BIDPRN PRN Administration Constipation Sodium Chloride 10 ml 01/24/20 03:34 01/25/20 09:14 Normal Saline Pf FS 10 ml PRN PRN Administration RECONSTITUTION Spironolactone 50 mg 02/01/20 08:00 02/13/20 09:57 Aldactone PO 50 mg QAM-WM MEENA Administration Tamsulosin HCl 0.4 mg 02/02/20 09:00 02/13/20 09:59 Flomax PO 0.4 mg DAILY MEENA Administration Tramadol HCl 50 mg 02/11/20 15:30 02/13/20 10:02 Ultram PO 50 mg Q6H PRN Administration Severe Pain (7-10) Triamcinolone Acetonide 1 gm 01/28/20 22:33 01/29/20 21:08 Kenalog 0.1% Cream TOP 1 applic BID PRN Administration Topical Irritations - Exam General Appearance: awake alert Eye: PERRL, anicteric sclera ENT: no oropharyngeal lesions, moist mucosa Neck: supple, no JVD Heart: RRR, no murmur Respiratory: no wheezes, no rales Gastrointestinal: soft, non-tender, non-distended, normal bowel sounds Extremities: no cyanosis, 1+ LE edema Neurological: cranial nerve grossly intact, no focal deficits Psychiatric: normal affect, A&O x 3 Hosp A/P (1) Acute exacerbation of CHF (congestive heart failure) Code(s): I50.9 - HEART FAILURE, UNSPECIFIED Status: Acute Qualifiers: Heart failure type: combined systolic and diastolic Qualified Code(s): I50.43 - Acute on chronic combined systolic (congestive) and diastolic ( congestive) heart failure (2) TRES (obstructive sleep apnea) Code(s): G47.33 - OBSTRUCTIVE SLEEP APNEA (ADULT) (PEDIATRIC) Status: Suspected (3) Afib Code(s): I48.91 - UNSPECIFIED ATRIAL FIBRILLATION Status: Acute Qualifiers: Atrial fibrillation type: paroxysmal Qualified Code(s): I48.0 - Paroxysmal atrial fibrillation (4) COPD (chronic obstructive pulmonary disease) Status: Chronic Qualifiers: COPD type: chronic bronchitis (5) HTN (hypertension) Code(s): I10 - ESSENTIAL (PRIMARY) HYPERTENSION Status: Chronic Qualifiers: Hypertension type: essential hypertension Qualified Code(s): I10 - Essential (primary) hypertension (6) Hepatitis C Code(s): B19.20 - UNSPECIFIED VIRAL HEPATITIS C WITHOUT HEPATIC COMA Status: Chronic Qualifiers: Viral hepatitis chronicity: chronic Hepatic coma status: without hepatic coma Qualified Code(s): B18.2 - Chronic viral hepatitis C (7) Obesity Code(s): E66.9 - OBESITY, UNSPECIFIED Status: Chronic Qualifiers: Obesity classification: adult class 2 (BMI 35 - 39.9) Body mass index: BMI 37.0-37.9 - Plan is on lasix, spironolactone, coreg, imdur er, eliquis, plavix, flomax, tegretol , cymbalta and iron hemostable is awaiting [facility] bed, may dc anytime if they can take him is requiring cpap at night and O2 by NC when ambulating, not at rest. d/w CM, still awaiting a [facility] bed thania hose to LE sparingly use ultram (he wont be getting that in [facility])
[2020-02-13] MEDS: Citrucel 500 MG TAB PO SCH (20:34)
--- NOTE | 2020-02-13 20:55 | PDOC.EVN ---
Event Note - Event Note Event Note: Nurse called, patient had BRBPR on toilet tissue, then large melanic stool. No abdominal pain. Hypertensive, with normal pulse and RR, afebrile. On BB. Hx colonoscopy in 07/[address] Howard, had polypectomy, no mention of diverticulitis. Ordered CBC, PT/INR, T&C, CMP. Made NPO, consulted Lee in am. Hold Eliquis and plavix. Cancelled D/C. Await labs to determine further clinical course.
[2020-02-13 21:13] LABS: #Basophils 0.1 thou/uL (0.0-0.2); #Eosinphils 0.2 thou/uL (0.0-0.7); #Lymphocytes 1.2 thou/uL (1.20-3.40); #Monocytes 0.5 thou/uL (0.11-0.59); %Basophils 1.1 % (0.0-1.0); %Eosinophils 3.5 % (0.0-10.0); %Lymphocytes 19.3 % (21.0-51.0); %Monocytes 8.8 % (0.0-10.0); %Neutrophils 67.3 % (42.0-75.0); Hemoglobin 10.3 g/dL (14.0-18.0); Mean Corpuscular HGB CONC 30.5 g/dL (32.0-36.0); Mean Corpuscular Volume 78.5 fL (78.0-98.0); Mean Platelet Volume 9.9 fL (7.4-10.4); Platelet Count 287 thou/uL (130-400); RBC Distribution Width 19.8 % (11.5-14.5); Red Blood Cell (RBC) Count 4.29 mill/uL (4.70-6.10)
[2020-02-13 21:19] LABS: PTT 28.3 sec (22.9-36.1); Prothrombin Time 13.6 sec (12.0-14.7)
[2020-02-13 21:34] LABS: ALT (SGPT) 23 U/L (8-55); AST (SGOT) 19 U/L (5-34); Albumin 3.7 g/dL (3.4-4.8); Alkaline Phosphatase 78 U/L (40-110); Anion Gap 14 mmol/L (10-20); BUN (Urea Nitrogen) 19 mg/dL (8.4-25.7); Bilirubin, Total 0.4 mg/dL (0.2-1.2); Calc. Creatinine Clearance 144 mL/min (70-130); Calcium 8.7 mg/dL (7.8-10.44); Carbon Dioxide 31 mmol/L (23-31); Chloride 103 mmol/L (98-107); Estimated GFR-MDRD 82; Globulin 3.3 g/dL (2.4-3.5); Glucose 119 mg/dL (80-115); Potassium 4.5 mmol/L (3.5-5.1); Sodium 143 mmol/L (136-145)
[2020-02-14] MEDS: Mometasone 200 MCG/Formoterol 5 MCG 120 PUFF INHALER INH SCH ×2 (07:03→19:06)
[2020-02-14] MEDS: Apixaban 5 MG TAB PO SCH (07:59)
[2020-02-14] MEDS: Clopidogrel Bisulfate 75 MG TAB PO SCH (07:59)
[2020-02-14] MEDS: Furosemide 40 MG TAB PO SCH ×2 (08:04→16:55)
[2020-02-14] MEDS: carBAMazepine 200 MG TAB PO SCH ×2 (08:05→21:33)
[2020-02-14] MEDS: Tamsulosin HCl 0.4 MG CAP PO SCH (08:05)
[2020-02-14] MEDS: Spironolactone 25 MG TAB PO SCH (08:05)
[2020-02-14] MEDS: DULoxetine 30 MG CAP PO SCH (08:05)
[2020-02-14] MEDS: Carvedilol 6.25 MG TAB PO SCH ×2 (08:05→16:55)
[2020-02-14] MEDS: Potassium Chloride 10 MEQ TAB PO SCH (08:05)
[2020-02-14] MEDS: Lisinopril 10 MG TAB PO SCH (08:06)
[2020-02-14] MEDS: traMADol HCl 50 MG TAB PO PRN ×2 (09:12→16:54)
[2020-02-14] MEDS ORDERED: PROPOFOL 200 MG/20 ML VIAL ONE (09:25)
[2020-02-14] MEDS ORDERED: Lidocaine 1% PF 5 ML VIAL ONE (09:25)
[2020-02-14] MEDS: Ferrous Sulfate 325 MG TAB PO SCH (10:08)
--- NOTE | 2020-02-14 11:40 | CON ---
DATE OF CONSULTATION: 02/14/2020 REASON FOR CONSULTATION: GI bleed. HISTORY OF PRESENT ILLNESS: Mr. Knutson is a 64-year-old male with history of heart failure, obstructive sleep apnea, atrial fibrillation, COPD, hypertension, and chronic hepatitis C, has been in the hospital for extended period of time awaiting transfer to a [facility]. The patient is on both Eliquis and Plavix. He reports having had a some black stool approximately a week ago. Last night, he went to the bathroom and noticed initially black stool followed by bloody stool. This morning, he had another episode of mostly hematochezia as red bloody stool. He reports having some vague nonlocalizing discomfort that is worse with bending. He denies any nausea or vomiting. In July of this year, he presented with hematochezia. Colonoscopy performed by Dr. Howard showed benign polyps and mostly left-sided diverticulosis coli. The bleeding stopped at that time. The bleeding was diverticular in origin. PAST MEDICAL HISTORY: 1. History of COVID-19 pneumonia. 2. Chronic hepatitis C. 3. Hypertension. 4. Diverticulosis with diverticular bleed in 07/2019. 5. Hypothyroidism. 6. COPD. 7. Atrial fibrillation. 8. Coronary artery disease. 9. Benign prostatic hypertrophy. PAST SURGICAL HISTORY: Bilateral knee replacement, peripheral stent placed for PVD, and hand surgery. ALLERGIES: HYDRALAZINE. SOCIAL HISTORY: The patient formally smoke. No active alcohol usage. He has currently been incarcerated at [facility]. MEDICATIONS: Currently include, 1. DuoNeb. 2. Eliquis. 3. Tegretol. 4. Coreg. 5. Plavix. 6. Cymbalta. 7. Lasix. 8. Imdur. 9. Zestril. 10. Aldactone. 11. Tamsulosin. 12. Other p.r.n. medication. REVIEW OF SYSTEMS: Ten-point review of systems did not show any other reported symptoms or any other pertinent positives or negatives. PHYSICAL EXAMINATION: VITAL SIGNS: Temperature is 97.5, blood pressure 157/103, and pulse of 76. GENERAL: He is alert and conversant, in no distress. HEENT: Shows anicteric sclerae. Oropharynx is clear and moist. NECK: Supple. CV: Shows normal S1 and S2. Regular rate and rhythm. CHEST: Shows breath sounds. No adventitious sounds. ABDOMEN: Protuberant, soft, mildly tender below the umbilicus. He has no distention. No tympany. He has active bowel sounds. EXTREMITIES: Show trace edema. LABORATORY DATA: WBC 6.0, hemoglobin 10.3, and platelet count of 287. Electrolytes within normal range. Creatinine 0.97. LFTs are normal. ASSESSMENT: 1. Gastrointestinal bleed, mostly hematochezia. Currently, his stool is mostly bloody, which I suspect is recurrent diverticular bleed similar to what he had earlier this year. However, he did report having some black melenic stool a week ago and also at the onset of his bleeding last night, making an upper gastrointestinal bleed a possibility. His blood count has remained stable without any significant change since admission. He is currently hemodynamically stable. 1. Multiple medical problems including heart failure, obstructive sleep apnea, atrial fibrillation, chronic obstructive pulmonary disease, hypertension, and chronic hepatitis C, generally overall stable. RECOMMENDATION: 1. Agree with holding Plavix and Eliquis for now. 2. We will proceed with upper endoscopy to rule out any brisk upper gastrointestinal bleed. 3. No need to repeat colonoscopy at the present time as he had one 6 months ago that showed diverticulosis and benign polyps. If EGD is normal, I suspect he has recurrent diverticular bleed, which tends to be self-limiting. 4. Further recommendation to follow above endoscopic finding. Job ID: [id number]
--- NOTE | 2020-02-14 13:15 | PQF ---
CLINICAL DOCUMENTATION CLARIFICATION FORM: Dear Dr. Nur Date: 02/14/2020; 02/15/2020 Please exercise your independent, professional judgment in responding to the clarification form. Clinical indicators are provided on the bottom of this form for your review. Please check appropriate box(es) to clarify if the following diagnosis has been ruled in our ruled out: NSTEMI elevated troponin probably type II metabolic mismatch demand ischemia secondary to CHF exacerbation [ X ] Ruled in diagnosis [ ] Continue to treat [ ] Resolved [ ] Ruled out diagnosis [ ] Improving [ ] Cannot rule out diagnosis [ ] Other diagnosis [ ] Unable to determine In addition, please specify: Present on Admission (POA): [ X ] Yes [ ] No [ ] Unable to determine For continuity of documentation, please document condition throughout progress notes and discharge summary. Thank You. To be completed by CDI/Coding staff for physician review: CLINICAL INDICATORS - SIGNS / SYMPTOMS / LABS / RESULTS AND LOCATION IN MR 01/23 ([facility]) Troponin 0.062, indeterminate BNP 689 Chest x-ray reported as bilateral infiltrates Recurrent diastolic heart failure 01/24-01/26([facility]) NSTEMI elevated troponin probably type II metabolic mismatch demand ischemia secondary to CHF exacerbation 02/12([facility]) Acute on chronic combined systolic congestive and diastolic CHF RISK FACTORS / RESULTS AND LOCATION IN MR H&P 01/23 ([facility]): PMH COPD; HTN, Morbid obesity; GI bleeding; A fib; CAD. 01/23([facility]) Acute hypoxic respiratory failure secondary to CHF exacerbation. TREATMENTS / RESULTS AND LOCATION H&P 01/23 ([facility]): IV diuresis. Consult Cardiology Thank you, Angelina Coughlin RN, BSN [email or web address] This is a permanent part of the Medical Record [facility]
[2020-02-14] MEDS ORDERED: Ketamine 50 MG/ML (10ML VIAL) ONE (15:39)
[2020-02-14] MEDS ORDERED: Promethazine HCl 25 MG/ML VIAL IM PRN (16:17)
[2020-02-14] MEDS ORDERED: Ondansetron HCl/PF 4 MG/2 ML Vial IVP PRN (16:17)
[2020-02-14] MEDS ORDERED: Promethazine HCl 25 MG/ML VIAL SLOW IVP PRN (16:17)
[2020-02-14] MEDS ORDERED: Labetalol HCl 100 MG/20 ML VIAL ONE (16:20)
--- NOTE | 2020-02-14 18:01 | PDOC.HOSPP ---
- Subjective Encounter Date: 02/14/20 Encounter Time: 13:00 Subjective: The patient reports having multiple bloody bowel movements. First it was black and now he thinks it is more old blood. Also reports abdominal pain for the past five years. He had three stents placed and has been on aspirin and plavix since then He also reports being told he may have diverticulitis COVID+ - reports being COVID + a week after his stents were placed, states it was tested at [facility]. States he was never symptomatic from this except one time he coughed up a large chunk of "gunk" a week ago He also reports SOB on exertion and his legs are swelling again and states that he wants some IV lasix - Objective Vital Signs & Weight: Vital Signs (12 hours) Temp Pulse Resp BP BP BP Pulse Ox 02/14/20 16:56 71 20 159/93 H 95 02/14/20 16:55 159/93 H 02/14/20 12:30 97.8 F 69 20 157/96 H 96 02/14/20 10:09 157/103 H 02/14/20 09:12 160/100 H 02/14/20 09:07 97.5 F L 76 20 180/116 H 95 02/14/20 08:13 164/104 H 02/14/20 08:06 153/90 H Weight Admit Weight 300 lb 11.2 oz Weight 280 lb 14.4 oz Most Recent Monitor Data Heart Rate from ECG 83 NIBP 131/93 NIBP BP-Mean 105 Respiration from ECG 22 SpO2 97 I&O: 02/13/20 02/14/20 02/15/20 06:59 06:59 06:59 Intake Total 1240 700 617 Output Total 725 298 2178 Balance 715 100 -683 Result Diagrams: 02/13/20 21:03 02/13/20 21:03 Hospitalist ROS - Review of Systems Constitutional: denies: fever, chills - Medication Medications: Active Medications Generic Name Dose Route Start Last Admin Trade Name Freq PRN Reason Stop Dose Admin Acetaminophen 650 mg 01/24/20 13:12 02/05/20 03:57 Tylenol PO 650 mg Q6H PRN Administration Fever > 101 Apixaban 5 mg 02/04/20 21:00 02/14/20 07:59 Eliquis PO Not Given BID MEENA Carbamazepine 200 mg 01/24/20 21:00 02/14/20 08:05 Tegretol PO 200 mg BID MEENA Administration Carvedilol 12.5 mg 02/01/20 17:00 02/14/20 16:55 Coreg PO 12.5 mg BID-WM MEENA Administration Clopidogrel Bisulfate 75 mg 01/25/20 09:00 02/14/20 07:59 Plavix PO Not Given QAM MEENA Duloxetine HCl 30 mg 01/25/20 09:00 02/14/20 08:05 Cymbalta PO 30 mg QAM MEENA Administration Ferrous Sulfate 325 mg 02/02/20 09:00 02/14/20 10:08 Feosol PO 325 mg Q2D MEENA Administration Furosemide 40 mg 02/03/20 14:00 02/14/20 16:55 Lasix PO 40 mg 0900,1400 MEENA Administration Ibuprofen 400 mg 02/08/20 11:29 02/11/20 09:06 Motrin PO 400 mg Q8H PRN Administration Moderate Pain (4-6) Isosorbide Mononitrate 60 mg 01/25/20 09:00 02/14/20 08:06 Imdur Er PO 60 mg DAILY MEENA Administration Lisinopril 10 mg 02/02/20 18:48 02/14/20 08:06 Zestril PO 10 mg DAILY MEENA Administration Methylcellulose 1,000 mg 01/24/20 21:00 02/13/20 20:34 Citrucel PO 1,000 mg QPM MEENA Administration Mometasone Furoate/Formoterol Fumar 1 puff 02/03/20 18:30 02/14/20 07:03 Dulera 200 Mcg/5 Mcg Inhaler INH 1 puff BID-RT MEENA Administration Pantoprazole Sodium 40 mg 01/24/20 09:00 02/14/20 08:04 Protonix PO 40 mg DAILY MEENA Administration Potassium Chloride 10 meq 02/04/20 08:00 02/14/20 08:05 Klor-Con 10 PO 10 meq QAM-WM MEENA Administration Senna/Docusate Sodium 2 tab 01/25/20 11:46 01/29/20 21:02 Senokot S PO 2 tab BIDPRN PRN Administration Constipation Sodium Chloride 10 ml 01/24/20 03:34 01/25/20 09:14 Normal Saline Pf FS 10 ml PRN PRN Administration RECONSTITUTION Spironolactone 50 mg 02/01/20 08:00 02/14/20 08:05 Aldactone PO 50 mg QAM-WM MEENA Administration Tamsulosin HCl 0.4 mg 02/02/20 09:00 02/14/20 08:05 Flomax PO 0.4 mg DAILY MEENA Administration Tramadol HCl 50 mg 02/11/20 15:30 02/14/20 16:54 Ultram PO 50 mg Q6H PRN Administration Severe Pain (7-10) Triamcinolone Acetonide 1 gm 01/28/20 22:33 01/29/20 21:08 Kenalog 0.1% Cream TOP 1 applic BID PRN Administration Topical Irritations - Exam General Appearance: NAD, awake alert Eye: PERRL, anicteric sclera ENT: normocephalic atraumatic, no oropharyngeal lesions Neck: supple, symmetric, no JVD, no thyromegaly Heart: RRR, no murmur, no gallops, no rubs Respiratory: CTAB, no wheezes, no rales, no ronchi Gastrointestinal: soft, non-distended, normal bowel sounds Gastrointestinal - other findings: mild tenderness Extremities: no cyanosis, no clubbing, 1+ LE edema Extremities - other findings: right greater than left Skin: normal turgor, no lesions, no rashes Neurological: cranial nerve grossly intact, normal sensation to touch, no focal deficits, no new deficit Hosp A/P - Plan This is a 64 year old male who presented with shortness of breath, was found to be hypoxic with orthopnea. Also had recent stent placement. He also developed melena during this hospitalization #Melena - patient is planned for EGD today. Had recent polypectomy a month ago - hemoglobin has remained stable #CAD s/p PCI - on eliquis and plavix, do not see aspirin on file #Systolic heart failure #Moderate MR - last Xray shows multifocal viral pneumonitis. He is COVID+ - continue lasix bid - Dr. Campa is following Anemia - Hb 10, stable, continue to monitor Peripheral edema - Dopplers 07/2019 were negative for DVT. He is on eliquis - likely from CHF
--- NOTE | 2020-02-14 18:32 | RAD ---
Exam: Chest one view HISTORY:Shortness of breath Comparison: 02/01/2020, 01/24/2020 FINDINGS: Cardiac silhouette:Cardiomegaly. Aorta: Persistent elongation of the aorta Pulmonary vessels: Normal Costophrenic angles: Clear LUNGS: Scattered interstitial opacities. Focal alveolar opacification in the right lung base. Pneumothorax: None Osseous abnormalities: None IMPRESSION: Scattered interstitial and alveolar opacities. Correlate for pneumonia.
--- NOTE | 2020-02-14 19:36 | OP ---
DATE OF PROCEDURE: 02/14/2020 PROCEDURE PERFORMED: Esophagogastroduodenoscopy. PREMEDICATION: Given by Anesthesiology Department. PREPROCEDURE DIAGNOSES: Gastrointestinal bleed, hematochezia, but reported possible melenic stool. POSTPROCEDURE DIAGNOSES: 1. No source of bleeding on upper endoscopy. 2. A 5 cm hiatal hernia. 3. Otherwise normal upper endoscopy. DESCRIPTION OF PROCEDURE: Written consents were obtained prior to procedure. After adequate sedation, the forward-viewing endoscope was advanced down to the third portion of the duodenum. The duodenum appeared normal. The duodenal bulb appeared normal. Pylorus was patent. The gastric antrum, body, fundus, and cardia all appeared normal. Retroflexion showed a hiatal hernia. The hiatal hernia was at 50 cm from the incisors. The Z-line was at 45 cm from the incisors. The lower, mid, and upper esophagus appeared normal. All the gastric lining and esophageal ring appeared normal. No bleeding was in countered. ASSESSMENT: 1. Hiatal hernia, otherwise normal upper endoscopy. 2. The patient's gastrointestinal bleed is most likely from recurrent diverticular bleed, similar to 07/2019. RECOMMENDATIONS: 1. Clear liquid diet for now. 2. I suspect his diverticular bleed will stop or has stopped. If there is evidence of ongoing bleeding, we will obtain a GI nuclear bleeding scan as he already had a colonoscopy 6 months ago. Job ID: [id number]
[2020-02-14] MEDS: Citrucel 500 MG TAB PO SCH (21:33)
[2020-02-15] MEDS: traMADol HCl 50 MG TAB PO PRN (00:17)
[2020-02-15] MEDS ORDERED: Ondansetron ODT 4 MG TAB PO PRN (00:43)
[2020-02-15] MEDS ORDERED: Ondansetron PF 4 MG/2 ML Vial IVP PRN (00:43)
[2020-02-15] MEDS ORDERED: Morphine 2 MG/ML VIAL SLOW IVP PRN (02:25)
[2020-02-15] MEDS: Apixaban 5 MG TAB PO SCH (05:04)
[2020-02-15 06:21] LABS: Hemoglobin 10.9 g/dL (14.0-18.0); Mean Corpuscular Hemoglobin 23.5 pg (27.0-31.0); Mean Corpuscular Volume 78.2 fL (78.0-98.0); Mean Platelet Volume 10.1 fL (7.4-10.4); Platelet Count 314 thou/uL (130-400); RBC Distribution Width 19.9 % (11.5-14.5); Red Blood Cell (RBC) Count 4.63 mill/uL (4.70-6.10); White Blood Cell (WBC) Count 10.3 thou/uL (4.8-10.8)
[2020-02-15] MEDS: Mometasone 200 MCG/Formoterol 5 MCG 120 PUFF INHALER INH SCH ×2 (07:20→20:24)
[2020-02-15] MEDS: Potassium Chloride 10 MEQ TAB PO SCH (10:07)
[2020-02-15] MEDS: Furosemide 40 MG TAB PO SCH ×2 (10:07→15:33)
[2020-02-15] MEDS: DULoxetine 30 MG CAP PO SCH (10:07)
[2020-02-15] MEDS: Tamsulosin HCl 0.4 MG CAP PO SCH (10:08)
[2020-02-15] MEDS: carBAMazepine 200 MG TAB PO SCH ×2 (10:10→20:18)
[2020-02-15] MEDS: Spironolactone 25 MG TAB PO SCH (10:12)
[2020-02-15] MEDS: Lisinopril 10 MG TAB PO SCH (10:13)
[2020-02-15] MEDS: Carvedilol 6.25 MG TAB PO SCH (10:13)
[2020-02-15] MEDS ORDERED: Iopamidol-370 76% 500 ML 1 ML ONE (13:32)
--- NOTE | 2020-02-15 13:51 | CT ---
CT ABDOMEN AND PELVIS WITH CONTRAST: 02/15/20 HISTORY: GI bleed. COMPARISON: CT abdomen and pelvis 07/23/19. FINDINGS: There is elevation of the right hemidiaphragm with right middle lobe and bilateral lower lobe atelec tatic changes. No hydronephrosis. Hypodensity inferior pole right kidney has not grown. Measures flui d attenuation. 3 mm calculus inferior left renal collecting system. No other renal calculi appreciate d. No hydroureteronephrosis. The prostate is mildly enlarged. No hepatic mass. No pericholecystic in flammation. Portal vein is patent. The aortic contour is normal. Small volume free fluid in the pelvis. There are innumerable diverticula throughout the sigmoid colon with some low grade inflammation. The appendix is visualized and is normal. No large infiltrating an nular colonic mass. Moderate facet arthrosis of the lower lumbar spine. IMPRESSION: 1. Extensive diverticular disease throughout the sigmoid colon with some low grade inflammatory stranding. This is relatively similar to the 07/23/19 exam suggesting chronic mild diverticulitis. Smal l volume free fluid in the pelvis suggests acuity. 2. Small fat containing left indirect inguinal hernia. 3. Normal appendix. 4. Mild cardiomegaly. 5. Chronic mild right hemidiaphragm elevation. POS: AH
[2020-02-15] MEDS ORDERED: Carvedilol 6.25 MG TAB PO SCH (14:00)
[2020-02-15] MEDS ORDERED: Furosemide 20 MG/2 ML VIAL SLOW IVP SCH (14:00)
--- NOTE | 2020-02-15 17:14 | PDOC.HOSPP ---
- Subjective Encounter Date: 02/15/20 Encounter Time: 15:00 Subjective: The patient reports having several bloody stools overnight, bright red. He had CT abdomen today showing diverticulitis. He complains of abdominal pain in the lower quadrants. He has been on clear liquid diet, no nausea or vomiting Hb has remained stable CHF - patient reports that he has lost 35 pounds while in the hospital. Legs are still swollen but states it looks much better than when he first came in here. Back pain - patient also complains of back pain, states that the morphine helped his back pain tremendously. No urinary incontinence - Objective Vital Signs & Weight: Vital Signs (12 hours) Temp Pulse Resp BP BP Pulse Ox 02/15/20 15:34 114/78 02/15/20 10:13 132/100 H 02/15/20 10:07 97 02/15/20 07:55 98.0 F 69 20 118/78 93 L 02/15/20 07:22 97 Weight Admit Weight 300 lb 11.2 oz Weight 276 lb Most Recent Monitor Data Heart Rate from ECG 83 NIBP 131/93 NIBP BP-Mean 105 Respiration from ECG 22 SpO2 97 I&O: 02/14/20 02/15/20 02/16/20 06:59 06:59 06:59 Intake Total 700 1508 770 Output Total 600 1300 Balance 100 208 770 Result Diagrams: 02/15/20 05:57 02/13/20 21:03 Hospitalist ROS - Review of Systems Constitutional: denies: fever, chills - Medication Medications: Active Medications Generic Name Dose Route Start Last Admin Trade Name Freq PRN Reason Stop Dose Admin Acetaminophen 650 mg 01/24/20 13:12 02/05/20 03:57 Tylenol PO 650 mg Q6H PRN Administration Fever > 101 Carbamazepine 200 mg 01/24/20 21:00 02/15/20 10:10 Tegretol PO 200 mg BID MEENA Administration Duloxetine HCl 30 mg 01/25/20 09:00 02/15/20 10:07 Cymbalta PO 30 mg QAM MEENA Administration Ferrous Sulfate 325 mg 02/02/20 09:00 02/14/20 10:08 Feosol PO 325 mg Q2D MEENA Administration Furosemide 40 mg 02/03/20 14:00 02/15/20 15:33 Lasix PO Not Given 0900,1400 MEENA Ibuprofen 400 mg 02/08/20 11:29 02/11/20 09:06 Motrin PO 400 mg Q8H PRN Administration Moderate Pain (4-6) Isosorbide Mononitrate 60 mg 01/25/20 09:00 02/15/20 10:10 Imdur Er PO 60 mg DAILY MEENA Administration Lisinopril 10 mg 02/02/20 18:48 02/15/20 10:13 Zestril PO 10 mg DAILY MEENA Administration Methylcellulose 1,000 mg 01/24/20 21:00 02/14/20 21:33 Citrucel PO 1,000 mg QPM MEENA Administration Mometasone Furoate/Formoterol Fumar 1 puff 02/03/20 18:30 02/15/20 07:20 Dulera 200 Mcg/5 Mcg Inhaler INH 1 puff BID-RT MEENA Administration Morphine Sulfate 2 mg 02/15/20 02:25 02/15/20 03:04 Morphine SLOW IVP 2 mg Q4H PRN Administration Breakthrough Pain Pantoprazole Sodium 40 mg 01/24/20 09:00 02/15/20 10:10 Protonix PO 40 mg DAILY MEENA Administration Potassium Chloride 10 meq 02/04/20 08:00 02/15/20 10:07 Klor-Con 10 PO 10 meq QAM-WM MEENA Administration Senna/Docusate Sodium 2 tab 01/25/20 11:46 01/29/20 21:02 Senokot S PO 2 tab BIDPRN PRN Administration Constipation Sodium Chloride 10 ml 01/24/20 03:34 01/25/20 09:14 Normal Saline Pf FS 10 ml PRN PRN Administration RECONSTITUTION Spironolactone 50 mg 02/01/20 08:00 02/15/20 10:12 Aldactone PO 50 mg QAM-WM MEENA Administration Tamsulosin HCl 0.4 mg 02/02/20 09:00 02/15/20 10:08 Flomax PO 0.4 mg DAILY MEENA Administration Tramadol HCl 50 mg 02/11/20 15:30 02/15/20 00:17 Ultram PO 50 mg Q6H PRN Administration Severe Pain (7-10) Triamcinolone Acetonide 1 gm 01/28/20 22:33 01/29/20 21:08 Kenalog 0.1% Cream TOP 1 applic BID PRN Administration Topical Irritations - Exam General Appearance: NAD, awake alert Eye: PERRL, anicteric sclera ENT: normocephalic atraumatic, no oropharyngeal lesions Neck: no JVD Heart: RRR, no murmur, no gallops, no rubs Respiratory: CTAB, no wheezes, no rales, no ronchi Gastrointestinal: soft, non-tender, non-distended, normal bowel sounds Extremities: no cyanosis, no clubbing, 2+ LE edema Skin: normal turgor, no lesions, no rashes Neurological: cranial nerve grossly intact, normal sensation to touch, no focal deficits, no new deficit Musculoskeletal: normal tone, normal strength, no muscle wasting Psychiatric: normal affect, normal behavior, A&O x 3, oriented to person Hosp A/P - Plan Upper endoscopy: normal, [address] abdomen: mild cardiomegaly. Left indirect inguinal hernia. Extensive diverticular disease with chronic mild diverticulitis This is a 64 year old male who presented with shortness of breath, was found to be hypoxic with orthopnea. Also had recent stent placement. He also developed melena during this hospitalization #Diverticular bleed vs chronic ischemic colitis - patient is planned for EGD today. Had recent polypectomy a month ago - hemoglobin has remained stable #Hypertensive urgency #Systolic heart failure #Moderate MR - BP 132/100. Continue current BP meds - will give dose of 20 mg IV lasix today then resume oral lasix bid - Dr. Campa is following #Recent COVID infection - was COVID + last month, currently afebrile not on isolation - chest X ray still showing some pneumonitis #CAD s/p PCI - on eliquis and plavix, do not see aspirin on file Anemia - Hb 10, stable, no evidence of bleeding on EGD Peripheral edema - Dopplers 07/2019 were negative for DVT. He is on eliquis - likely from CHF Back pain - continue tramadol
[2020-02-15] MEDS ORDERED: oxyCODONE/Acetaminophen 5 mg/325 mg Tablet PO PRN (17:19)
[2020-02-15] MEDS ORDERED: metroNIDAZOLE 500 MG TAB PO SCH ×3 (17:30→23:59)
[2020-02-15] MEDS: Carvedilol 25 MG TAB PO SCH (18:30)
--- NOTE | 2020-02-15 18:35 | PRG ---
DATE OF SERVICE: 02/15/2020 SUBJECTIVE: Mr. Knutson had some bleeding last night. He states he has had some lower to mid abdominal pain that is very similar that has had in the past. He was here at this hospital previously. He had a colonoscopy with Dr. Howard on 07/24/2019, in which he was found to have diffuse diverticulosis. Yesterday, he had EDG with Dr. Zhou, which was normal. OBJECTIVE: VITAL SIGNS: Temperature is 98, blood pressure 133/100. ABDOMEN: Soft. There is no rebound and no guarding. There is no evidence of hernias. LABORATORY DATA: White count is 10.3, hemoglobin is 10.9 and stable over the last 4 days, platelets are 314. Sodium 143, potassium is 5.4, BUN and creatinine are 19 and 0.9. Basic metabolic profile is normal. There is no evidence of anion gap. Liver function tests are normal. Lipase was not checked. ASSESSMENT: 1. Lower gastrointestinal bleeding. This seems be inconsequential, there is no hemodynamic compromise or drop in hemoglobin, that might be possibly diverticular or hemorrhoidal. He had a negative EGD yesterday. 2. Abdominal pain. This is chronic. He has a benign abdomen and labs are not indicative of infectious or ischemic process. We would get a CAT scan. He has had issues with bowel obstruction in the past. It is normal. I think the patient can be discharged back to the [facility] with the CPAP. Job ID: [id number]
[2020-02-15] MEDS: Citrucel 500 MG TAB PO SCH (20:18)
[2020-02-15] MEDS: Ciprofloxacin 500 MG TAB PO SCH (20:18)
[2020-02-16] MEDS: Ciprofloxacin 500 MG TAB PO SCH ×2 (05:36→21:01)
[2020-02-16 06:10] LABS: Mean Corpuscular HGB CONC 29.9 g/dL (32.0-36.0); Mean Corpuscular Hemoglobin 23.7 pg (27.0-31.0); Mean Corpuscular Volume 79.3 fL (78.0-98.0); Mean Platelet Volume 9.7 fL (7.4-10.4); Platelet Count 285 thou/uL (130-400); RBC Distribution Width 19.4 % (11.5-14.5); Red Blood Cell (RBC) Count 4.21 mill/uL (4.70-6.10); White Blood Cell (WBC) Count 4.6 thou/uL (4.8-10.8)
[2020-02-16 06:26] LABS: Anion Gap 14 mmol/L (10-20); BUN (Urea Nitrogen) 18 mg/dL (8.4-25.7); Calc. Creatinine Clearance 146 mL/min (70-130); Calcium 8.3 mg/dL (7.8-10.44); Carbon Dioxide 29 mmol/L (23-31); Chloride 102 mmol/L (98-107); Estimated GFR-MDRD 86; Glucose 114 mg/dL (80-115); Potassium 3.7 mmol/L (3.5-5.1); Sodium 141 mmol/L (136-145)
[2020-02-16] MEDS: Mometasone 200 MCG/Formoterol 5 MCG 120 PUFF INHALER INH SCH ×2 (06:46→18:29)
[2020-02-16] MEDS: Spironolactone 25 MG TAB PO SCH (08:06)
[2020-02-16] MEDS: metroNIDAZOLE 500 MG TAB PO SCH ×3 (08:06→20:43)
[2020-02-16] MEDS: DULoxetine 30 MG CAP PO SCH (08:06)
[2020-02-16] MEDS: Tamsulosin HCl 0.4 MG CAP PO SCH (08:07)
[2020-02-16] MEDS: Lisinopril 10 MG TAB PO SCH (08:07)
[2020-02-16] MEDS: Potassium Chloride 10 MEQ TAB PO SCH (08:07)
[2020-02-16] MEDS: Carvedilol 25 MG TAB PO SCH ×2 (08:07→18:23)
[2020-02-16] MEDS: Furosemide 40 MG TAB PO SCH ×2 (08:08→14:30)
[2020-02-16] MEDS: carBAMazepine 200 MG TAB PO SCH ×2 (08:08→20:44)
[2020-02-16] MEDS ORDERED: Lisinopril 10 MG TAB PO SCH (09:15)
[2020-02-16] MEDS: Ferrous Sulfate 325 MG TAB PO SCH (10:43)
[2020-02-16] MEDS ORDERED: Furosemide 20 MG/2 ML VIAL SLOW IVP SCH (14:30)
--- NOTE | 2020-02-16 16:12 | PDOC.HOSPP ---
- Subjective Encounter Date: 02/16/20 Encounter Time: 12:00 Subjective: The patient states he is feeling better. His abdominal pain has improved. He states he only had mild streaks of blood He ambulated with PT and dropped to 70% without oxygen - Objective Vital Signs & Weight: Vital Signs (12 hours) Temp Pulse Resp BP BP Pulse Ox 02/16/20 11:13 117/77 02/16/20 08:07 155/111 H 02/16/20 08:06 94 L 02/16/20 07:50 98.0 F 86 20 155/111 H 94 L Weight Admit Weight 300 lb 11.2 oz Weight 279 lb 8 oz Most Recent Monitor Data Heart Rate from ECG 83 NIBP 131/93 NIBP BP-Mean 105 Respiration from ECG 22 SpO2 97 I&O: 02/15/20 02/16/20 02/17/20 06:59 06:59 06:59 Intake Total 1508 3070 Output Total 1300 2050 Balance 208 1020 Result Diagrams: 02/16/20 05:25 02/16/20 05:25 Hospitalist ROS - Review of Systems Constitutional: denies: fever, chills - Medication Medications: Active Medications Generic Name Dose Route Start Last Admin Trade Name Freq PRN Reason Stop Dose Admin Acetaminophen 650 mg 01/24/20 13:12 02/05/20 03:57 Tylenol PO 650 mg Q6H PRN Administration Fever > 101 Carbamazepine 200 mg 01/24/20 21:00 02/16/20 08:08 Tegretol PO 200 mg BID MEENA Administration Carvedilol 25 mg 02/15/20 17:00 02/16/20 08:07 Coreg PO 25 mg BID-WM MEENA Administration Ciprofloxacin 500 mg 02/15/20 20:00 02/16/20 05:36 Cipro PO 500 mg BID@0600,2000 MEENA Administration Duloxetine HCl 30 mg 01/25/20 09:00 02/16/20 08:06 Cymbalta PO 30 mg QAM MEENA Administration Ferrous Sulfate 325 mg 02/02/20 09:00 02/16/20 10:43 Feosol PO 325 mg Q2D MEENA Administration Furosemide 40 mg 02/03/20 14:00 02/16/20 14:30 Lasix PO 40 mg 0900,1400 MEENA Administration Furosemide 20 mg 02/16/20 14:30 02/16/20 15:13 Lasix SLOW IVP 02/16/20 16:30 20 mg NOW MEENA Administration Ibuprofen 400 mg 02/08/20 11:29 02/11/20 09:06 Motrin PO 400 mg Q8H PRN Administration Moderate Pain (4-6) Isosorbide Mononitrate 60 mg 01/25/20 09:00 02/16/20 08:06 Imdur Er PO 60 mg DAILY MEENA Administration Lisinopril 10 mg 02/02/20 18:48 02/16/20 08:07 Zestril PO 10 mg DAILY MEENA Administration Methylcellulose 1,000 mg 01/24/20 21:00 02/15/20 20:18 Citrucel PO 1,000 mg QPM MEENA Administration Metronidazole 500 mg 02/16/20 09:00 02/16/20 15:13 Flagyl PO 500 mg TID MEENA Administration Mometasone Furoate/Formoterol Fumar 1 puff 02/03/20 18:30 02/16/20 06:46 Dulera 200 Mcg/5 Mcg Inhaler INH 1 puff BID-RT MEENA Administration Morphine Sulfate 2 mg 02/15/20 02:25 02/15/20 03:04 Morphine SLOW IVP 2 mg Q4H PRN Administration Breakthrough Pain Pantoprazole Sodium 40 mg 01/24/20 09:00 02/16/20 08:07 Protonix PO 40 mg DAILY MEENA Administration Potassium Chloride 10 meq 02/04/20 08:00 02/16/20 08:07 Klor-Con 10 PO 10 meq QAM-WM MEENA Administration Senna/Docusate Sodium 2 tab 01/25/20 11:46 01/29/20 21:02 Senokot S PO 2 tab BIDPRN PRN Administration Constipation Sodium Chloride 10 ml 01/24/20 03:34 01/25/20 09:14 Normal Saline Pf FS 10 ml PRN PRN Administration RECONSTITUTION Spironolactone 50 mg 02/01/20 08:00 02/16/20 08:06 Aldactone PO 50 mg QAM-WM MEENA Administration Tamsulosin HCl 0.4 mg 02/02/20 09:00 02/16/20 08:07 Flomax PO 0.4 mg DAILY MEENA Administration Tramadol HCl 50 mg 02/11/20 15:30 02/15/20 00:17 Ultram PO 50 mg Q6H PRN Administration Severe Pain (7-10) Triamcinolone Acetonide 1 gm 01/28/20 22:33 01/29/20 21:08 Kenalog 0.1% Cream TOP 1 applic BID PRN Administration Topical Irritations - Exam General Appearance: NAD, awake alert Eye: PERRL, anicteric sclera ENT: normocephalic atraumatic, no oropharyngeal lesions Neck: no JVD Heart: RRR, no murmur, no gallops, no rubs Respiratory: CTAB, no wheezes, no rales, no ronchi Gastrointestinal: soft, non-tender, non-distended, normal bowel sounds Extremities: no cyanosis, no clubbing, 1+ LE edema Skin: normal turgor, no lesions, no rashes Neurological: cranial nerve grossly intact, normal sensation to touch, no weakness Musculoskeletal: normal tone, normal strength, no muscle wasting Hosp A/P - Plan Upper endoscopy: normal, [address] abdomen: mild cardiomegaly. Left indirect inguinal hernia. Extensive diverticular disease with chronic mild diverticulitis This is a 64 year old male who presented with shortness of breath, was found to be hypoxic with orthopnea. Also had recent stent placement. He also developed melena during this hospitalization #Diverticular bleed vs chronic ischemic colitis - patient is planned for EGD today. Had recent polypectomy a month ago - hemoglobin has remained stable - started on cipro and flagyl with improvement. Will continue #Acute systolic heart failure #Hypertensive urgency #Moderate MR - BP has improved and was controlled this am - still hypoxic on ambulation - continue oral lasix bid. Give additional dose of 20 mg IV lasix today #Recent COVID infection - was COVID + last month, currently afebrile not on isolation - chest X ray still showed some pneumonitis #CAD s/p PCI - on eliquis and plavix, do not see aspirin on file Anemia - Hb 10, stable, no evidence of bleeding on EGD Peripheral edema - Dopplers 07/2019 were negative for DVT. He is on eliquis - likely from CHF Back pain - continue tramadol Dispo: will ask case management to look for [facility]
--- NOTE | 2020-02-16 20:23 | PRG ---
DATE OF SERVICE: 02/16/2020 REASON FOR CONSULTATION: GI bleeding. SUBJECTIVE: Overnight, the patient did not have any acute events or problems. He did have one bowel movement earlier today, but noticed no more hematochezia or melenic type stools. He does continue to have some mild right lower quadrant abdominal pain, but is also improving when compared to previous. Otherwise, he denies any nausea, vomiting, fevers, chills, hematemesis, melena, or hematochezia. OBJECTIVE: VITAL SIGNS: Temperature 98, pulse 86, blood pressure 117/77, respiratory rate 20, and saturating 94% on room air. GENERAL: The patient is lying in bed, in no acute distress. Alert and oriented x4. CARDIOVASCULAR: Regular rate and rhythm. RESPIRATORY: Clear to auscultation bilaterally. ABDOMEN: Normoactive bowel sounds. Soft, nontender, and nondistended. EXTREMITIES: No cyanosis, clubbing, or edema. LABORATORY DATA: CBC with a white blood cell count of 4.6, hemoglobin 10, hematocrit 33.4, and platelets 285. Chemistry with a sodium of 141, potassium 3.7, chloride 102, CO2 of 29, BUN 18, creatinine 0.89, and glucose 114. IMAGING DATA: The patient had a CT of the abdomen and pelvis on February 15, 2020, which showed extensive diverticular disease throughout the sigmoid colon and some low-grade inflammatory stranding similar to the exam on July 23, 2019 suggesting chronic mild diverticulitis. No abnormalities were seen within the appendix and a small fat containing left indirect inguinal hernia was also seen. ASSESSMENT AND PLAN: 1. Lower gastrointestinal bleeding. The patient is presenting with complaints of what appears to be both melenic stools and hematochezia while taking both Eliquis and Plavix. He had undergone colonoscopy in July 2019 for a similar indication with extensive diverticular disease seen in the left colon. During this admission, he underwent EGD on February 14, 2020 with no abnormality seen during that examination. At this time, the patient's H and H has been stable over the last 2 to 3 days with no clinical evidence to suggest that he has continued gastrointestinal bleeding. 2. Abdominal pain. The patient is presenting with chronic abdominal pain located in the right lower quadrant, which is incongruence to the diverticular disease seen on both the CAT scan and colonoscopy in July 2019. At this time, I would place the patient on a bowel regimen to prevent any further constipation or abdominal pain. Recommendations;. 3. Continue to trend his H and H and transfuse as necessary to maintain an H and H of 7/. 4. Continue to monitor clinically for signs of gastrointestinal bleeding. 5. Pain control per primary team. 6. I will place the patient on a higher fiber diet as well as a bowel regimen to prevent constipation given evidence of possible chronic diverticular disease. We will sign off at this time. Please call with any questions. Job ID: [id number]
[2020-02-16] MEDS ORDERED: Senokot 8.6 MG TAB PO PRN (20:31)
[2020-02-16] MEDS: Citrucel 500 MG TAB PO SCH (20:44)
[2020-02-16] MEDS: Docusate 100 MG CAP PO SCH (21:01)
[2020-02-17] MEDS: Ciprofloxacin 500 MG TAB PO SCH ×2 (05:45→22:26)
[2020-02-17 06:00] LABS: Hemoglobin 9.7 g/dL (14.0-18.0)
[2020-02-17 06:13] LABS: Calc. Creatinine Clearance 148 mL/min (70-130); Estimated GFR-MDRD 87; Potassium 3.6 mmol/L (3.5-5.1)
[2020-02-17] MEDS: Mometasone 200 MCG/Formoterol 5 MCG 120 PUFF INHALER INH SCH ×2 (06:29→18:47)
[2020-02-17] MEDS: Potassium Chloride 10 MEQ TAB PO SCH (10:39)
[2020-02-17] MEDS: Carvedilol 25 MG TAB PO SCH ×2 (10:39→16:55)
[2020-02-17] MEDS: Furosemide 40 MG TAB PO SCH ×2 (10:40→14:58)
[2020-02-17] MEDS: metroNIDAZOLE 500 MG TAB PO SCH ×3 (10:41→22:27)
[2020-02-17] MEDS: Lisinopril 10 MG TAB PO SCH (10:41)
[2020-02-17] MEDS: DULoxetine 30 MG CAP PO SCH (10:41)
[2020-02-17] MEDS: Docusate 100 MG CAP PO SCH ×2 (10:42→21:00)
[2020-02-17] MEDS: carBAMazepine 200 MG TAB PO SCH ×2 (10:42→22:27)
[2020-02-17] MEDS: Tamsulosin HCl 0.4 MG CAP PO SCH (10:42)
[2020-02-17] MEDS: Ferrous Sulfate 325 MG TAB PO SCH (10:50)
[2020-02-17] MEDS: Spironolactone 25 MG TAB PO SCH (10:51)
[2020-02-17 12:39] LABS: Hemoglobin 10.3 g/dL (14.0-18.0); Mean Corpuscular HGB CONC 30.1 g/dL (32.0-36.0); Mean Corpuscular Hemoglobin 23.9 pg (27.0-31.0); Mean Corpuscular Volume 79.3 fL (78.0-98.0); Mean Platelet Volume 9.4 fL (7.4-10.4); Platelet Count 318 thou/uL (130-400); RBC Distribution Width 19.3 % (11.5-14.5); Red Blood Cell (RBC) Count 4.31 mill/uL (4.70-6.10); White Blood Cell (WBC) Count 4.7 thou/uL (4.8-10.8)
--- NOTE | 2020-02-17 15:25 | PDOC.HOSPP ---
- Subjective Encounter Date: 02/17/20 Encounter Time: 10:00 Subjective: The patient states that he was SOB on ambulation and he couldn't get oxygen saturation above 85%. The patient ambulated with nursing and maintained oxygen saturation of 92%. He still needs BIPAP at night, therefore pending an infirmary bed, although patient doesn't want to go back to infirmary bed. He had mild bloody mucus in toilet, nothing significant. Hemoglobin is stable - Objective Vital Signs & Weight: Vital Signs (12 hours) Temp Pulse Resp BP BP BP Pulse Ox 02/17/20 10:41 167/102 H 02/17/20 08:00 98.0 F 66 20 167/102 H 94 L 02/17/20 04:00 97.9 F 64 20 101/68 94 L Weight Admit Weight 300 lb 11.2 oz Weight 279 lb 8 oz Most Recent Monitor Data Heart Rate from ECG 83 NIBP 131/93 NIBP BP-Mean 105 Respiration from ECG 22 SpO2 97 I&O: 02/16/20 02/17/20 02/18/20 06:59 06:59 06:59 Intake Total 3070 1380 Output Total 2050 1350 Balance 1020 30 Result Diagrams: 02/17/20 12:20 02/17/20 05:26 Hospitalist ROS - Review of Systems Constitutional: denies: fever, chills - Medication Medications: Active Medications Generic Name Dose Route Start Last Admin Trade Name Freq PRN Reason Stop Dose Admin Acetaminophen 650 mg 01/24/20 13:12 02/05/20 03:57 Tylenol PO 650 mg Q6H PRN Administration Fever > 101 Carbamazepine 200 mg 01/24/20 21:00 02/17/20 10:42 Tegretol PO 200 mg BID MEENA Administration Carvedilol 25 mg 02/15/20 17:00 02/17/20 10:39 Coreg PO 25 mg BID-WM MEENA Administration Ciprofloxacin 500 mg 02/15/20 20:00 02/17/20 05:45 Cipro PO 500 mg BID@0600,2000 MEENA Administration Docusate Sodium 100 mg 02/16/20 21:00 02/17/20 10:42 Colace PO 100 mg BID MEENA Administration Duloxetine HCl 30 mg 01/25/20 09:00 02/17/20 10:41 Cymbalta PO 30 mg QAM MEENA Administration Ferrous Sulfate 325 mg 02/02/20 09:00 02/17/20 10:50 Feosol PO 325 mg Q2D MEENA Administration Furosemide 40 mg 02/03/20 14:00 02/17/20 14:58 Lasix PO 40 mg 0900,1400 MEENA Administration Ibuprofen 400 mg 02/08/20 11:29 02/11/20 09:06 Motrin PO 400 mg Q8H PRN Administration Moderate Pain (4-6) Isosorbide Mononitrate 60 mg 01/25/20 09:00 02/17/20 10:40 Imdur Er PO 60 mg DAILY MEENA Administration Lisinopril 10 mg 02/02/20 18:48 02/17/20 10:41 Zestril PO 10 mg DAILY MEENA Administration Methylcellulose 1,000 mg 01/24/20 21:00 02/16/20 20:44 Citrucel PO 1,000 mg QPM MEENA Administration Metronidazole 500 mg 02/16/20 09:00 02/17/20 14:58 Flagyl PO 500 mg TID MEENA Administration Mometasone Furoate/Formoterol Fumar 1 puff 02/03/20 18:30 02/17/20 06:29 Dulera 200 Mcg/5 Mcg Inhaler INH 1 puff BID-RT MEENA Administration Morphine Sulfate 2 mg 02/15/20 02:25 02/15/20 03:04 Morphine SLOW IVP 2 mg Q4H PRN Administration Breakthrough Pain Pantoprazole Sodium 40 mg 01/24/20 09:00 02/17/20 10:42 Protonix PO 40 mg DAILY MEENA Administration Potassium Chloride 10 meq 02/04/20 08:00 02/17/20 10:39 Klor-Con 10 PO 10 meq QAM-WM MEENA Administration Senna/Docusate Sodium 2 tab 01/25/20 11:46 01/29/20 21:02 Senokot S PO 2 tab BIDPRN PRN Administration Constipation Sodium Chloride 10 ml 01/24/20 03:34 01/25/20 09:14 Normal Saline Pf FS 10 ml PRN PRN Administration RECONSTITUTION Spironolactone 50 mg 02/01/20 08:00 02/17/20 10:51 Aldactone PO 50 mg QAM-WM MEENA Administration Tamsulosin HCl 0.4 mg 02/02/20 09:00 02/17/20 10:42 Flomax PO 0.4 mg DAILY MEENA Administration Tramadol HCl 50 mg 02/11/20 15:30 02/15/20 00:17 Ultram PO 50 mg Q6H PRN Administration Severe Pain (7-10) Triamcinolone Acetonide 1 gm 01/28/20 22:33 01/29/20 21:08 Kenalog 0.1% Cream TOP 1 applic BID PRN Administration Topical Irritations - Exam General Appearance: NAD, awake alert Eye: PERRL, anicteric sclera ENT: normocephalic atraumatic, no oropharyngeal lesions Neck: no JVD Heart: RRR, no murmur, no gallops, no rubs Respiratory: CTAB, no wheezes, no rales, no ronchi Gastrointestinal: soft, non-tender, non-distended, normal bowel sounds Extremities: no cyanosis, no clubbing, no edema Skin: normal turgor, no lesions, no rashes Neurological: cranial nerve grossly intact, normal sensation to touch, no focal deficits, no new deficit Musculoskeletal: normal tone, normal strength, no muscle wasting Psychiatric: normal affect, normal behavior, A&O x 3, oriented to person Hosp A/P - Plan Upper endoscopy: normal, [address] abdomen: mild cardiomegaly. Left indirect inguinal hernia. Extensive diverticular disease with chronic mild diverticulitis This is a 64 year old male who presented with shortness of breath, was found to be hypoxic with orthopnea. Also had recent stent placement. He also developed melena during this hospitalization #Diverticular bleed vs chronic ischemic colitis - EGD was normal. Had recent polypectomy a month ago. CT abdomen showed chronic diverticulitis - hemoglobin has remained stable. Continue cipro and flagyl day two #Acute systolic heart failure #Hypertensive urgency #Moderate MR - BP has improved and came down to 115 per nursing - still hypoxic on ambulation - continue oral lasix bid. Give additional dose of 20 mg IV lasix today #Recent COVID infection - was COVID + last month, currently afebrile not on isolation - chest X ray still showed some pneumonitis #CAD s/p PCI - on eliquis and plavix, do not see aspirin on file Anemia - Hb 10, stable, no evidence of bleeding on EGD Peripheral edema - Dopplers 07/2019 were negative for DVT. He is on eliquis - likely from CHF Back pain - continue tramadol Dispo: pending [facility] bed , stable for dc
[2020-02-17] MEDS: Citrucel 500 MG TAB PO SCH (22:26)
[2020-02-18 05:49] LABS: Hemoglobin 9.9 g/dL (14.0-18.0); Mean Corpuscular HGB CONC 30.2 g/dL (32.0-36.0); Mean Corpuscular Hemoglobin 23.8 pg (27.0-31.0); Mean Corpuscular Volume 78.8 fL (78.0-98.0); Mean Platelet Volume 9.8 fL (7.4-10.4); Platelet Count 294 thou/uL (130-400); RBC Distribution Width 19.2 % (11.5-14.5); Red Blood Cell (RBC) Count 4.17 mill/uL (4.70-6.10); White Blood Cell (WBC) Count 4.7 thou/uL (4.8-10.8)
[2020-02-18] MEDS: Ciprofloxacin 500 MG TAB PO SCH ×2 (06:02→21:40)
[2020-02-18] MEDS: Mometasone 200 MCG/Formoterol 5 MCG 120 PUFF INHALER INH SCH ×2 (07:12→19:31)
[2020-02-18] MEDS: Carvedilol 25 MG TAB PO SCH ×2 (09:48→17:54)
[2020-02-18] MEDS: Potassium Chloride 10 MEQ TAB PO SCH (09:48)
[2020-02-18] MEDS: Spironolactone 25 MG TAB PO SCH (09:49)
[2020-02-18] MEDS: carBAMazepine 200 MG TAB PO SCH ×2 (09:51→21:40)
[2020-02-18] MEDS: DULoxetine 30 MG CAP PO SCH (09:52)
[2020-02-18] MEDS: Docusate 100 MG CAP PO SCH ×2 (09:52→21:40)
[2020-02-18] MEDS: Furosemide 40 MG TAB PO SCH ×2 (09:52→14:30)
[2020-02-18] MEDS: Lisinopril 10 MG TAB PO SCH (09:54)
[2020-02-18] MEDS: metroNIDAZOLE 500 MG TAB PO SCH ×3 (09:55→21:39)
[2020-02-18] MEDS: Tamsulosin HCl 0.4 MG CAP PO SCH (09:56)
--- NOTE | 2020-02-18 13:24 | PDOC.HOSPP ---
- Subjective Encounter Date: 02/18/20 Encounter Time: 09:50 Subjective: Patient doing well he noticed a small bleed this a.m. during bowel movement otherwise he is stable. His hemoglobin 9.9 today. - Objective Vital Signs & Weight: Vital Signs (12 hours) Temp Pulse Resp BP BP BP Pulse Ox 02/18/20 09:54 148/90 H 02/18/20 07:20 97.9 F 61 18 148/90 H 93 L 02/18/20 05:00 97.8 F 62 18 121/85 96 Weight Admit Weight 300 lb 11.2 oz Weight 277 lb Most Recent Monitor Data Heart Rate from ECG 83 NIBP 131/93 NIBP BP-Mean 105 Respiration from ECG 22 SpO2 97 I&O: 02/17/20 02/18/20 02/19/20 06:59 06:59 06:59 Intake Total 1380 830 Output Total 1350 Balance 30 830 Result Diagrams: 02/18/20 05:40 02/17/20 05:26 Hospitalist ROS - Medication Medications: Active Medications Generic Name Dose Route Start Last Admin Trade Name Freq PRN Reason Stop Dose Admin Acetaminophen 650 mg 01/24/20 13:12 02/05/20 03:57 Tylenol PO 650 mg Q6H PRN Administration Fever > 101 Carbamazepine 200 mg 01/24/20 21:00 02/18/20 09:51 Tegretol PO 200 mg BID MEENA Administration Carvedilol 25 mg 02/15/20 17:00 02/18/20 09:48 Coreg PO 25 mg BID-WM MEENA Administration Ciprofloxacin 500 mg 02/15/20 20:00 02/18/20 06:02 Cipro PO 500 mg BID@0600,2000 MENEA Administration Docusate Sodium 100 mg 02/16/20 21:00 02/18/20 09:52 Colace PO 100 mg BID MEENA Administration Duloxetine HCl 30 mg 01/25/20 09:00 02/18/20 09:52 Cymbalta PO 30 mg QAM MEENA Administration Ferrous Sulfate 325 mg 02/02/20 09:00 02/17/20 10:50 Feosol PO 325 mg Q2D MEENA Administration Furosemide 40 mg 02/03/20 14:00 02/18/20 09:52 Lasix PO 40 mg 0900,1400 MEENA Administration Ibuprofen 400 mg 02/08/20 11:29 02/11/20 09:06 Motrin PO 400 mg Q8H PRN Administration Moderate Pain (4-6) Isosorbide Mononitrate 60 mg 01/25/20 09:00 02/18/20 09:53 Imdur Er PO 60 mg DAILY MEENA Administration Lisinopril 10 mg 02/02/20 18:48 02/18/20 09:54 Zestril PO 10 mg DAILY MEENA Administration Methylcellulose 1,000 mg 01/24/20 21:00 02/17/20 22:26 Citrucel PO 1,000 mg QPM MEENA Administration Metronidazole 500 mg 02/16/20 09:00 02/18/20 09:55 Flagyl PO 500 mg TID MEENA Administration Mometasone Furoate/Formoterol Fumar 1 puff 02/03/20 18:30 02/18/20 07:12 Dulera 200 Mcg/5 Mcg Inhaler INH 1 puff BID-RT MEENA Administration Morphine Sulfate 2 mg 02/15/20 02:25 02/15/20 03:04 Morphine SLOW IVP 2 mg Q4H PRN Administration Breakthrough Pain Pantoprazole Sodium 40 mg 01/24/20 09:00 02/18/20 09:56 Protonix PO 40 mg DAILY MEENA Administration Potassium Chloride 10 meq 02/04/20 08:00 02/18/20 09:48 Klor-Con 10 PO 10 meq QAM-WM MEENA Administration Senna/Docusate Sodium 2 tab 01/25/20 11:46 01/29/20 21:02 Senokot S PO 2 tab BIDPRN PRN Administration Constipation Sodium Chloride 10 ml 01/24/20 03:34 01/25/20 09:14 Normal Saline Pf FS 10 ml PRN PRN Administration RECONSTITUTION Spironolactone 50 mg 02/01/20 08:00 02/18/20 09:49 Aldactone PO 50 mg QAM-WM MEENA Administration Tamsulosin HCl 0.4 mg 02/02/20 09:00 02/18/20 09:56 Flomax PO 0.4 mg DAILY MEENA Administration Tramadol HCl 50 mg 02/11/20 15:30 02/15/20 00:17 Ultram PO 50 mg Q6H PRN Administration Severe Pain (7-10) Triamcinolone Acetonide 1 gm 01/28/20 22:33 01/29/20 21:08 Kenalog 0.1% Cream TOP 1 applic BID PRN Administration Topical Irritations - Exam General Appearance: NAD, awake alert Eye: PERRL ENT: normocephalic atraumatic Neck: supple Neurological: no focal deficits Psychiatric: A&O x 3 Hosp A/P - Plan #Diverticular bleed vs chronic ischemic colitis - EGD was normal. Had recent polypectomy a month ago. CT abdomen showed chronic diverticulitis - hemoglobin has remained stable. Continue cipro and flagyl day two #Acute systolic heart failure #Hypertensive urgency #Moderate MR - BP has improved and came down to 115 per nursing - still hypoxic on ambulation - continue oral lasix bid. Give additional dose of 20 mg IV lasix today #Recent COVID infection - was COVID + last month, currently afebrile not on isolation - cxr- pneumonitis #CAD s/p PCI - on eliquis and plavix Anemia - Hb 10, stable, no evidence of bleeding on EGD Peripheral edema - Dopplers 07/2019 were negative for DVT. He is on eliquis - likely from CHF Back pain - continue tramadol plavix and eliquis on hold on cipro and flagyl bowel regimen and high fiber diet. PPI PO Hopefully we can start back on plavix and elqiuis in a week?
[2020-02-18] MEDS: traMADol HCl 50 MG TAB PO PRN (14:34)
[2020-02-18] MEDS: Citrucel 500 MG TAB PO SCH (21:40)
[2020-02-19] MEDS: Ciprofloxacin 500 MG TAB PO SCH ×2 (05:28→21:20)
[2020-02-19] MEDS: Mometasone 200 MCG/Formoterol 5 MCG 120 PUFF INHALER INH SCH ×2 (06:57→19:55)
[2020-02-19] MEDS: Carvedilol 25 MG TAB PO SCH ×2 (07:45→17:22)
[2020-02-19] MEDS: Potassium Chloride 10 MEQ TAB PO SCH (07:46)
[2020-02-19] MEDS: Spironolactone 25 MG TAB PO SCH (07:46)
[2020-02-19] MEDS: Docusate 100 MG CAP PO SCH ×2 (07:47→21:20)
[2020-02-19] MEDS: carBAMazepine 200 MG TAB PO SCH ×2 (07:47→21:20)
[2020-02-19] MEDS: Furosemide 40 MG TAB PO SCH ×2 (07:48→14:46)
[2020-02-19] MEDS: DULoxetine 30 MG CAP PO SCH (07:48)
[2020-02-19] MEDS: Lisinopril 10 MG TAB PO SCH (07:50)
[2020-02-19] MEDS: metroNIDAZOLE 500 MG TAB PO SCH ×3 (07:51→21:20)
[2020-02-19] MEDS: Tamsulosin HCl 0.4 MG CAP PO SCH (07:51)
--- NOTE | 2020-02-19 12:57 | PDOC.HOSPP ---
- Subjective Encounter Date: 02/19/20 Encounter Time: 10:10 Subjective: Patient is doing well he has no complaints. His blood pressure systolic touching 150. - Objective Vital Signs & Weight: Vital Signs (12 hours) Temp Pulse Resp BP BP BP Pulse Ox 02/19/20 08:00 97.7 F 69 20 151/94 H 91 L 02/19/20 07:50 142/100 H 02/19/20 04:00 97.6 F 57 L 19 129/83 93 L Weight Admit Weight 300 lb 11.2 oz Weight 279 lb Most Recent Monitor Data Heart Rate from ECG 83 NIBP 131/93 NIBP BP-Mean 105 Respiration from ECG 22 SpO2 97 I&O: 02/18/20 02/19/20 02/20/20 06:59 06:59 06:59 Intake Total 830 750 Output Total 900 Balance 830 -150 Result Diagrams: 02/18/20 05:40 02/17/20 05:26 Hospitalist ROS - Medication Medications: Active Medications Generic Name Dose Route Start Last Admin Trade Name Freq PRN Reason Stop Dose Admin Acetaminophen 650 mg 01/24/20 13:12 02/05/20 03:57 Tylenol PO 650 mg Q6H PRN Administration Fever > 101 Carbamazepine 200 mg 01/24/20 21:00 02/19/20 07:47 Tegretol PO 200 mg BID MEENA Administration Carvedilol 25 mg 02/15/20 17:00 02/19/20 07:45 Coreg PO 25 mg BID-WM MEENA Administration Ciprofloxacin 500 mg 02/15/20 20:00 02/19/20 05:28 Cipro PO 500 mg BID@0600,2000 MEENA Administration Docusate Sodium 100 mg 02/16/20 21:00 02/19/20 07:47 Colace PO 100 mg BID MEENA Administration Duloxetine HCl 30 mg 01/25/20 09:00 02/19/20 07:48 Cymbalta PO 30 mg QAM MEENA Administration Ferrous Sulfate 325 mg 02/02/20 09:00 02/17/20 10:50 Feosol PO 325 mg Q2D MEENA Administration Furosemide 40 mg 02/03/20 14:00 02/19/20 07:48 Lasix PO 40 mg 0900,1400 MEENA Administration Ibuprofen 400 mg 02/08/20 11:29 02/11/20 09:06 Motrin PO 400 mg Q8H PRN Administration Moderate Pain (4-6) Isosorbide Mononitrate 60 mg 01/25/20 09:00 02/19/20 07:49 Imdur Er PO 60 mg DAILY MEENA Administration Lisinopril 10 mg 02/02/20 18:48 02/19/20 07:50 Zestril PO 10 mg DAILY MEENA Administration Methylcellulose 1,000 mg 01/24/20 21:00 02/18/20 21:40 Citrucel PO 1,000 mg QPM MEENA Administration Metronidazole 500 mg 02/16/20 09:00 02/19/20 07:51 Flagyl PO 500 mg TID MEENA Administration Mometasone Furoate/Formoterol Fumar 1 puff 02/03/20 18:30 02/19/20 06:57 Dulera 200 Mcg/5 Mcg Inhaler INH 1 puff BID-RT MEENA Administration Morphine Sulfate 2 mg 02/15/20 02:25 02/15/20 03:04 Morphine SLOW IVP 2 mg Q4H PRN Administration Breakthrough Pain Pantoprazole Sodium 40 mg 01/24/20 09:00 02/19/20 07:51 Protonix PO 40 mg DAILY MEENA Administration Potassium Chloride 10 meq 02/04/20 08:00 02/19/20 07:46 Klor-Con 10 PO 10 meq QAM-WM MEENA Administration Senna/Docusate Sodium 2 tab 01/25/20 11:46 01/29/20 21:02 Senokot S PO 2 tab BIDPRN PRN Administration Constipation Sodium Chloride 10 ml 01/24/20 03:34 01/25/20 09:14 Normal Saline Pf FS 10 ml PRN PRN Administration RECONSTITUTION Spironolactone 50 mg 02/01/20 08:00 02/19/20 07:46 Aldactone PO 50 mg QAM-WM MEENA Administration Tamsulosin HCl 0.4 mg 02/02/20 09:00 02/19/20 07:51 Flomax PO 0.4 mg DAILY MEENA Administration Tramadol HCl 50 mg 02/11/20 15:30 02/18/20 14:34 Ultram PO 50 mg Q6H PRN Administration Severe Pain (7-10) Triamcinolone Acetonide 1 gm 01/28/20 22:33 01/29/20 21:08 Kenalog 0.1% Cream TOP 1 applic BID PRN Administration Topical Irritations - Exam General Appearance: NAD, awake alert Eye: PERRL ENT: normocephalic atraumatic Neck: supple Respiratory: normal chest expansion Gastrointestinal: normal bowel sounds Neurological: no focal deficits Psychiatric: A&O x 3 Hosp A/P - Plan #Diverticular bleed vs chronic ischemic colitis - EGD was normal. Had recent polypectomy a month ago. CT abdomen showed chronic diverticulitis - hemoglobin has remained stable. Continue cipro and flagyl day two #Acute systolic heart failure #Hypertensive urgency #Moderate MR - BP has improved and came down to 115 per nursing - still hypoxic on ambulation - continue oral lasix bid. Give additional dose of 20 mg IV lasix today #Recent COVID infection - was COVID + last month, currently afebrile not on isolation - cxr- pneumonitis #CAD s/p PCI - on eliquis and plavix Anemia - Hb 10, stable, no evidence of bleeding on EGD Peripheral edema - Dopplers 07/2019 were negative for DVT. He is on eliquis - likely from CHF Back pain - continue tramadol plavix and eliquis on hold on cipro and flagyl bowel regimen and high fiber diet. PPI PO Hopefully we can start back on plavix and elqiuis in a week? will cehck with CM, whether we would be able to transfer him to his facility during this long weekend.
[2020-02-19] MEDS: Citrucel 500 MG TAB PO SCH (21:20)
[2020-02-20 05:52] LABS: #Basophils 0.1 thou/uL (0.0-0.2); #Eosinphils 0.3 thou/uL (0.0-0.7); #Lymphocytes 1.1 thou/uL (1.20-3.40); #Monocytes 0.6 thou/uL (0.11-0.59); #Neutrophils 4.1 thou/uL (1.40-6.50); %Basophils 1.3 % (0.0-1.0); %Eosinophils 4.4 % (0.0-10.0); %Lymphocytes 18.3 % (21.0-51.0); %Monocytes 9.8 % (0.0-10.0); %Neutrophils 66.2 % (42.0-75.0); Hemoglobin 10.3 g/dL (14.0-18.0); Mean Corpuscular HGB CONC 28.4 g/dL (32.0-36.0); Mean Corpuscular Hemoglobin 22.4 pg (27.0-31.0); Mean Corpuscular Volume 78.9 fL (78.0-98.0); Platelet Count 349 thou/uL (130-400); RBC Distribution Width 19.3 % (11.5-14.5); Red Blood Cell (RBC) Count 4.59 mill/uL (4.70-6.10); White Blood Cell (WBC) Count 6.2 thou/uL (4.8-10.8)
[2020-02-20] MEDS: Ciprofloxacin 500 MG TAB PO SCH ×2 (06:16→21:23)
[2020-02-20 06:19] VITALS: BMI 37.3
[2020-02-20] MEDS: Mometasone 200 MCG/Formoterol 5 MCG 120 PUFF INHALER INH SCH ×2 (06:52→18:46)
[2020-02-20] MEDS: Spironolactone 25 MG TAB PO SCH (09:16)
[2020-02-20] MEDS: Carvedilol 25 MG TAB PO SCH ×2 (09:16→16:56)
[2020-02-20] MEDS: Potassium Chloride 10 MEQ TAB PO SCH (09:16)
[2020-02-20] MEDS: carBAMazepine 200 MG TAB PO SCH ×2 (09:17→21:23)
[2020-02-20] MEDS: Ferrous Sulfate 325 MG TAB PO SCH (09:18)
[2020-02-20] MEDS: DULoxetine 30 MG CAP PO SCH (09:18)
[2020-02-20] MEDS: metroNIDAZOLE 500 MG TAB PO SCH ×3 (09:18→21:23)
[2020-02-20] MEDS: Tamsulosin HCl 0.4 MG CAP PO SCH (09:18)
[2020-02-20] MEDS: Furosemide 40 MG TAB PO SCH ×2 (09:18→13:50)
[2020-02-20] MEDS: Lisinopril 10 MG TAB PO SCH (09:18)
[2020-02-20] MEDS: Docusate 100 MG CAP PO SCH ×2 (09:18→21:24)
--- NOTE | 2020-02-20 13:37 | PDOC.HOSPP ---
- Subjective Encounter Date: 02/20/20 Encounter Time: 11:10 Subjective: She has tried a healthy heart diet he wants a regular diet. I talked to the adult protective caseworker whether there is a possibility of sending him home. He does not require [facility] bed in my evaluation. - Objective Vital Signs & Weight: Vital Signs (12 hours) Temp Pulse Resp BP BP Pulse Ox 02/20/20 12:39 98.0 F 70 20 114/78 93 L 02/20/20 09:29 99 02/20/20 09:18 162/97 H 02/20/20 08:00 99 02/20/20 07:27 97.9 F 72 18 162/97 H 90 L Weight Admit Weight 300 lb 11.2 oz Weight 275 lb Most Recent Monitor Data Heart Rate from ECG 83 NIBP 131/93 NIBP BP-Mean 105 Respiration from ECG 22 SpO2 97 I&O: 02/19/20 02/20/20 02/21/20 06:59 06:59 06:59 Intake Total 750 450 Output Total 900 Balance -150 450 Result Diagrams: 02/20/20 05:27 02/17/20 05:26 Hospitalist ROS - Medication Medications: Active Medications Generic Name Dose Route Start Last Admin Trade Name Freq PRN Reason Stop Dose Admin Acetaminophen 650 mg 01/24/20 13:12 02/05/20 03:57 Tylenol PO 650 mg Q6H PRN Administration Fever > 101 Carbamazepine 200 mg 01/24/20 21:00 02/20/20 09:17 Tegretol PO 200 mg BID MEENA Administration Carvedilol 25 mg 02/15/20 17:00 02/20/20 09:16 Coreg PO 25 mg BID-WM MEENA Administration Ciprofloxacin 500 mg 02/15/20 20:00 02/20/20 06:16 Cipro PO 500 mg BID@0600,2000 MEENA Administration Docusate Sodium 100 mg 02/16/20 21:00 02/20/20 09:18 Colace PO 100 mg BID MEENA Administration Duloxetine HCl 30 mg 01/25/20 09:00 02/20/20 09:18 Cymbalta PO 30 mg QAM MEENA Administration Ferrous Sulfate 325 mg 02/02/20 09:00 02/20/20 09:18 Feosol PO 325 mg Q2D MEENA Administration Furosemide 40 mg 02/03/20 14:00 02/20/20 09:18 Lasix PO 40 mg 0900,1400 MEENA Administration Ibuprofen 400 mg 02/08/20 11:29 02/11/20 09:06 Motrin PO 400 mg Q8H PRN Administration Moderate Pain (4-6) Isosorbide Mononitrate 60 mg 01/25/20 09:00 02/20/20 09:17 Imdur Er PO 60 mg DAILY MEENA Administration Lisinopril 10 mg 02/02/20 18:48 02/20/20 09:18 Zestril PO 10 mg DAILY MEENA Administration Methylcellulose 1,000 mg 01/24/20 21:00 02/19/20 21:20 Citrucel PO 1,000 mg QPM MEENA Administration Metronidazole 500 mg 02/16/20 09:00 02/20/20 09:18 Flagyl PO 500 mg TID MEENA Administration Mometasone Furoate/Formoterol Fumar 1 puff 02/03/20 18:30 02/20/20 06:52 Dulera 200 Mcg/5 Mcg Inhaler INH 1 puff BID-RT MEENA Administration Morphine Sulfate 2 mg 02/15/20 02:25 02/15/20 03:04 Morphine SLOW IVP 2 mg Q4H PRN Administration Breakthrough Pain Pantoprazole Sodium 40 mg 01/24/20 09:00 02/20/20 09:18 Protonix PO 40 mg DAILY MEENA Administration Potassium Chloride 10 meq 02/04/20 08:00 02/20/20 09:16 Klor-Con 10 PO 10 meq QAM-WM MEENA Administration Senna/Docusate Sodium 2 tab 01/25/20 11:46 01/29/20 21:02 Senokot S PO 2 tab BIDPRN PRN Administration Constipation Sodium Chloride 10 ml 01/24/20 03:34 01/25/20 09:14 Normal Saline Pf FS 10 ml PRN PRN Administration RECONSTITUTION Spironolactone 50 mg 02/01/20 08:00 02/20/20 09:16 Aldactone PO 50 mg QAM-WM MEENA Administration Tamsulosin HCl 0.4 mg 02/02/20 09:00 02/20/20 09:18 Flomax PO 0.4 mg DAILY MEENA Administration Tramadol HCl 50 mg 02/11/20 15:30 02/18/20 14:34 Ultram PO 50 mg Q6H PRN Administration Severe Pain (7-10) Triamcinolone Acetonide 1 gm 01/28/20 22:33 01/29/20 21:08 Kenalog 0.1% Cream TOP 1 applic BID PRN Administration Topical Irritations - Exam General Appearance: NAD, awake alert Eye: PERRL ENT: normocephalic atraumatic Neck: supple Heart: RRR Respiratory: CTAB, normal chest expansion Gastrointestinal: soft, normal bowel sounds Neurological: cranial nerve grossly intact, no focal deficits Psychiatric: A&O x 3 Hosp A/P - Plan #Diverticular bleed vs chronic ischemic colitis - EGD was normal. Had recent polypectomy a month ago. CT abdomen showed chronic diverticulitis - hemoglobin has remained stable. Continue cipro and flagyl day two #Acute systolic heart failure #Hypertensive urgency #Moderate MR - BP has improved and came down to 115 per nursing - still hypoxic on ambulation - continue oral lasix bid. Give additional dose of 20 mg IV lasix today #Recent COVID infection - was COVID + last month, currently afebrile not on isolation - cxr- pneumonitis #CAD s/p PCI - on eliquis and plavix Anemia - Hb 10, stable, no evidence of bleeding on EGD Peripheral edema - Dopplers 07/2019 were negative for DVT. He is on eliquis - likely from CHF Back pain - continue tramadol plavix and eliquis on hold on cipro and flagyl bowel regimen and high fiber diet. PPI PO Hopefully we can start back on plavix and elqiuis in a week? will cehck with CM, whether we would be able to transfer him to his facility during this long weekend. 7th Started him back on Plavix and Eliquis. Regular diet. Physical therapy consult to assess his ambulatory strength. Hopefully will be able to discharge him tomorrow. Does not require [facility] bed in my evaluation.
[2020-02-20] MEDS: Apixaban 5 MG TAB PO SCH (21:23)
[2020-02-20] MEDS: Citrucel 500 MG TAB PO SCH (21:29)
[2020-02-21] MEDS: Ciprofloxacin 500 MG TAB PO SCH (05:42)
[2020-02-21 05:57] LABS: #Basophils 0.1 thou/uL (0.0-0.2); #Eosinphils 0.2 thou/uL (0.0-0.7); #Lymphocytes 1.3 thou/uL (1.20-3.40); #Monocytes 0.6 thou/uL (0.11-0.59); #Neutrophils 3.4 thou/uL (1.40-6.50); %Eosinophils 4.1 % (0.0-10.0); %Lymphocytes 22.9 % (21.0-51.0); %Monocytes 10.1 % (0.0-10.0); %Neutrophils 61.8 % (42.0-75.0); Hemoglobin 10.8 g/dL (14.0-18.0); Mean Corpuscular HGB CONC 29.3 g/dL (32.0-36.0); Mean Corpuscular Volume 78.5 fL (78.0-98.0); Mean Platelet Volume 9.7 fL (7.4-10.4); Platelet Count 330 thou/uL (130-400); RBC Distribution Width 19.2 % (11.5-14.5); White Blood Cell (WBC) Count 5.5 thou/uL (4.8-10.8)
[2020-02-21] MEDS: Mometasone 200 MCG/Formoterol 5 MCG 120 PUFF INHALER INH SCH (06:59)
[2020-02-21] MEDS ORDERED: Clopidogrel Bisulfate 75 MG TAB PO SCH (09:00)
[2020-02-21] MEDS: Potassium Chloride 10 MEQ TAB PO SCH (09:10)
[2020-02-21] MEDS: Furosemide 40 MG TAB PO SCH ×2 (09:11→14:14)
[2020-02-21] MEDS: Spironolactone 25 MG TAB PO SCH (09:11)
[2020-02-21] MEDS: Carvedilol 25 MG TAB PO SCH ×2 (09:11→16:46)
[2020-02-21] MEDS: Tamsulosin HCl 0.4 MG CAP PO SCH (09:11)
[2020-02-21] MEDS: Lisinopril 10 MG TAB PO SCH (09:11)
[2020-02-21] MEDS: Docusate 100 MG CAP PO SCH (09:12)
[2020-02-21] MEDS: metroNIDAZOLE 500 MG TAB PO SCH ×2 (09:12→14:14)
[2020-02-21] MEDS: carBAMazepine 200 MG TAB PO SCH (09:12)
[2020-02-21] MEDS: Apixaban 5 MG TAB PO SCH (09:12)
[2020-02-21] MEDS: DULoxetine 30 MG CAP PO SCH (09:12)
[2020-02-21 17:10] VITALS: BP 143/90; TEMP 97.7
--- NOTE | 2020-02-22 06:44 | DIS ---
DATE OF ADMISSION: 01/24/2020 DATE OF DISCHARGE: DISCHARGE DIAGNOSES: 1. Diverticular bleed with chronic diverticulosis. 2. Acute systolic heart failure. 3. Hypertensive urgency. 4. Moderate mitral regurgitation. 5. Recent COVID infection roughly a month ago. 6. Coronary artery disease, status post percutaneous coronary intervention. 7. Anemia of inflammatory disease. 8. Peripheral edema. 9. Chronic back pain. DISCHARGE MEDICATIONS: 1. Eliquis 5 mg twice a day. 2. Coreg 12.5 mg twice a day. 3. Ferrous sulfate 325 mg daily. 4. Lasix 20 mg daily. 5. Dulera 200 mcg/5 mcg inhaler two puffs twice a day. 6. Potassium chloride 10 mEq. 7. Spironolactone 25 mg daily. 8. Plavix 75 mg daily. 9. Lisinopril 10 mg daily. 10. Terazosin 2 mg. 11. Duloxetine 30 mg daily. 12. Carbamazepine 200 mg twice a day. PHYSICAL EXAMINATION: VITAL SIGNS: On the day of discharge, his temperature is 98.3, pulse 78, and blood pressure 121/79. GENERAL: The patient is sitting in the bed. He is comfortable, no acute issues. CARDIOVASCULAR: Regular rate and rhythm without murmurs. LUNGS: Clear without any adventitious lung sounds. HOSPITAL COURSE: This is a 64-year-old male with multiple medical problems, presented with diverticular bleed. He had recent polypectomy roughly a month ago. On initial evaluation, hemoglobin was stable. He was started on Cipro and Flagyl for potential diverticulitis. EGD showed a 5 cm hiatal hernia. He did have recent colonoscopy in July 2019 showing extensive diverticular disease in the left colon. Now, during this admission, we did a CT abdomen, which showed left indirect inguinal hernia, extensive diverticular disease with chronic mild diverticulitis. Also has some mild cardiomegaly. After supportive medical management, he improved well. His hemoglobin is stable without any evidence of bleeding on the EGD. He also had peripheral edema, for which a doppler was done. Last time, it was negative for DVT. Obviously, edema is a chronicity related to his CHF. The patient will be discharged with Eliquis and Plavix in addition to Cipro and Flagyl for his chronic diverticulitis to complete a 10-day course for now. DISCHARGE INSTRUCTIONS: Activity as tolerated. Regular diet. Follow up with the PCP or the TDM. Discharge time took over 35 minutes. Job ID: [id number] MTDDavid
--- NOTE | 2020-02-22 13:25 | EKG ---
Test Reason : Blood Pressure : / mmHG Vent. Rate : 069 BPM Atrial Rate : 055 BPM P-R Int : 000 ms QRS Dur : 106 ms QT Int : 424 ms P-R-T Axes : 000 -06 066 degrees QTc Int : 454 ms Atrial fibrillation with a competing junctional pacemaker Abnormal ECG No previous ECGs available Confirmed by DR. Daniel CROW MD ([id number]) on 02/22/2020 1:25:36 PM Referred By: SULY Confirmed By:DR. Daniel CROW MD
== END 2020-02-21 17:22 | DRG 280 ==
LOC: EEVIPCON 00:19 → IMCU/EMU 00:19 → 2SW 22:10 → 2NO 01-30 21:52 → T4-A 02-05 15:19
PROVIDERS: ADMIT Internal Medicine; ATTEND Internal Medicine
PROC: 8E0ZXY6 Isolation (ICD-10-PCS; 2020-01-24)
PROC: 5A09357 Assistance with Respiratory Ventilation, Less than 24 Consecutive Hours, Continuous Positive Airway Pressure (ICD-10-PCS; principal; 2020-02-01)
PROC: 0DJ08ZZ Inspection of Upper Intestinal Tract, Via Natural or Artificial Opening Endoscopic (ICD-10-PCS; 2020-02-14)
DX: I11.0 Hypertensive heart disease with heart failure (principal); I21.A1 Myocardial infarction type 2; J96.01 Acute respiratory failure with hypoxia; K57.33 Diverticulitis of large intestine without perforation or abscess with bleeding; I48.19 Other persistent atrial fibrillation; E87.3 Alkalosis; J44.1 Chronic obstructive pulmonary disease with (acute) exacerbation; K55.1 Chronic vascular disorders of intestine; N40.0 Benign prostatic hyperplasia without lower urinary tract symptoms; I50.43 Acute on chronic combined systolic (congestive) and diastolic (congestive) heart failure; E66.01 Morbid (severe) obesity due to excess calories; E03.9 Hypothyroidism, unspecified; I25.10 Atherosclerotic heart disease of native coronary artery without angina pectoris; Z20.828 Contact with and (suspected) exposure to other viral communicable diseases; K59.00 Constipation, unspecified; I34.0 Nonrheumatic mitral (valve) insufficiency; G47.33 Obstructive sleep apnea (adult) (pediatric); I16.0 Hypertensive urgency; D64.9 Anemia, unspecified; B18.2 Chronic viral hepatitis C; K44.9 Diaphragmatic hernia without obstruction or gangrene; I95.9 Hypotension, unspecified; M54.9 Dorsalgia, unspecified; Z68.36 Body mass index [BMI] 36.0-36.9, adult; Z86.19 Personal history of other infectious and parasitic diseases; Z87.891 Personal history of nicotine dependence; Z88.8 Allergy status to other drugs, medicaments and biological substances; Z79.899 Other long term (current) drug therapy; Z79.01 Long term (current) use of anticoagulants; Z79.82 Long term (current) use of aspirin; Z95.5 Presence of coronary angioplasty implant and graft
CPT/HCPCS: 36415; 36600; 71045; 74177; 80048; 80053; 82553; 82565; 82728; 82805; 83540; 83550; 83735; 83880; 84132; 84145; 84484; 84550; 85014; 85018; 85025; 85027; 85049; 85610; 85730; 86850; 86900; 86901; 87635; 93005; 93010; 93306; 94640; 94660; 94664; 97139; C9113; J1940; J2270; J2704; J7050; J7512; J7620; Q9967; U0003

== ENCOUNTER 2020-10-01 10:05 | Emergency (ER) | payer OTHER ==
[2020-10-01 10:45] LABS: #Basophils 0.1 thou/uL (0.0-0.2); #Eosinphils 0.3 thou/uL (0.0-0.7); #Lymphocytes 1.9 thou/uL (1.20-3.40); #Monocytes 0.8 thou/uL (0.11-0.59); #Neutrophils 4.4 thou/uL (1.40-6.50); %Basophils 0.8 % (0.0-1.0); %Eosinophils 3.5 % (0.0-10.0); %Lymphocytes 25.6 % (21.0-51.0); %Monocytes 10.3 % (0.0-10.0); %Neutrophils 59.9 % (42.0-75.0); Hemoglobin 14.4 g/dL (14.0-18.0); Mean Corpuscular HGB CONC 30.9 g/dL (32.0-36.0); Mean Corpuscular Hemoglobin 25.5 pg (27.0-31.0); Mean Corpuscular Volume 82.6 fL (78.0-98.0); Mean Platelet Volume 9.5 fL (7.4-10.4); Platelet Count 228 thou/uL (130-400); Red Blood Cell (RBC) Count 5.63 mill/uL (4.70-6.10); White Blood Cell (WBC) Count 7.3 thou/uL (4.8-10.8)
[2020-10-01 10:51] LABS: PTT 26.9 sec (22.9-36.1); Prothrombin Time 12.9 sec (12.0-14.7)
[2020-10-01 11:06] LABS: ALT (SGPT) 18 U/L (8-55); AST (SGOT) 18 U/L (5-34); Albumin 3.9 g/dL (3.4-4.8); Alkaline Phosphatase 91 U/L (40-110); Anion Gap 12 mmol/L (10-20); BUN (Urea Nitrogen) 14 mg/dL (8.4-25.7); Bilirubin, Total 1.4 mg/dL (0.2-1.2); Calc. Creatinine Clearance 0 mL/min (70-130); Calcium 9.7 mg/dL (7.8-10.44); Carbon Dioxide 30 mmol/L (23-31); Chloride 102 mmol/L (98-107); Globulin 3.5 g/dL (2.4-3.5); Glucose 102 mg/dL (80-115); Potassium 3.7 mmol/L (3.5-5.1); Protein, Total 7.4 g/dL (5.8-8.1); Sodium 140 mmol/L (136-145)
[2020-10-01 11:30] LABS: CKMB 1.7 ng/mL (0-6.6)
[2020-10-01] MEDS ORDERED: Aspirin Chewable 81 MG TAB ONE (12:02)
[2020-10-01] MEDS ORDERED: Furosemide 40 MG/4 ML VIAL ONE (12:02)
[2020-10-01] MEDS ORDERED: Furosemide 40 MG TAB ONE (12:48)
== END 2020-10-01 13:21 | disposition left against medical advice (07) ==
LOC: ERS 10:05 → EEVIPCON 10:05 → ERS 13:21
DX: I11.0 Hypertensive heart disease with heart failure (principal); I50.9 Heart failure, unspecified; B19.20 Unspecified viral hepatitis C without hepatic coma; E03.9 Hypothyroidism, unspecified; J44.9 Chronic obstructive pulmonary disease, unspecified; N40.0 Benign prostatic hyperplasia without lower urinary tract symptoms; Z87.891 Personal history of nicotine dependence; Z79.899 Other long term (current) drug therapy
CPT/HCPCS: 36415; 71045; 80053; 82553; 83880; 84484; 85025; 85610; 85730; 93005; 94760; J1940